=== PATIENT | female | born 1955 | race Caucasian/White ===

== ENCOUNTER 2020-10-10 12:16 | Outpatient (RCR) | payer MEDICARE, OTHER, SELFPAY ==
[2020-10-10] MEDS: COVID-19 VACC, MRNA(PFIZER)/PF 30 MCG/0.3 ML SYRINGE IM (18:32)
[2020-10-31] MEDS: COVID-19 VACC, MRNA(PFIZER)/PF 30 MCG/0.3 ML SYRINGE IM (17:47)
== END 2020-10-10 23:59 ==
LOC: IMMUN 12:16
PROVIDERS: PCP Family Medicine; Visit Provider Family Medicine
DX: Z23 Encounter for immunization (principal)
CPT/HCPCS: 0001A; 0002A; 91300

== ENCOUNTER 2025-03-30 20:12 | Emergency (ER) | payer MEDICARE, OTHER, SELFPAY ==
[2025-03-30 20:13] VITALS: BP 151/67; PULSE 67; RESP 18; TEMP 36.9; O2SAT 95; BMI 28.5
[2025-03-30 20:14] VITALS: BP 151/67; PULSE 67; RESP 18; TEMP 36.9; O2SAT 95
--- NOTE | 2025-03-30 21:07 | EX.ED.DYSGE1 ---
HPI <DAVID Salcedo - Last Filed: 03/30/25 21:50> History of Present Illness Chief Complaint: Wound Check Narrative Narrative: Patient presenting today due to concerns for an abscess to the left medial upper thigh. She reports that her symptoms started on 03/23/2025 and she went to urgent care, they were able to express some purulent discharge out of the abscess but did not open it and placed her on Bactrim. She then returned on 03/25 because the area was not getting any better and they added Keflex and referred her to Dr. Joyce who she followed up with on 03/26. He recommended applying warm compresses to the area and compression. Patient reports that the area is still not improving. She denies any fevers, chills, nausea, or vomiting. No history of diabetes or immunocompromise. PFSH <DAVID Salcedo - Last Filed: 03/30/25 21:50> [facility] Medical History Anxiety High cholesterol HTN (hypertension) Home Medications ?Medication ?Instructions ?Recorded ?Last Taken ?Type cephalexin 500 mg capsule 500 mg PO Q6 #20 CAPSULES 03/30/25 Unknown Rx sulfamethoxazole 800 1 tab PO BID 5 days #10 tabs 03/30/25 Unknown Rx mg-trimethoprim 160 mg tablet (Bactrim DS) Allergy/AdvReac Type Severity Reaction Status Date / Time clindamycin (From Cleocin) Allergy Other Verified 03/30/25 20:13 Tetracyclines Allergy Other Verified 03/30/25 20:13 Family History no significant family his Surgical History H/O section Social History Smoking Status: Never smoker ROS <DAVID Salcedo - Last Filed: 03/30/25 21:50> ROS ED Constitutional Constitutional ED: Denies chills or fever(s) Cardiovascular Cardiovascular: Denies chest pain Respiratory/Chest Respiratory/Chest: Denies dyspnea Gastrointestinal Gastrointestinal: Denies abdominal pain, nausea or vomiting Musculoskeletal Musculoskeletal: Denies arthralgias or myalgias Integumentary Reports abscess Neurologic Neurologic: Denies weakness EXAM <DAVID Salcedo - Last Filed: 03/30/25 21:50> Physical Exam Const Vital Signs: 03/30/25 20:13 03/30/25 20:14 03/30/25 21:52 Temperature 98.4 F 98.4 F 98.4 F Temperature Source Oral Oral Pulse Rate 67 67 66 Respiratory Rate 18 18 16 Blood Pressure 151/67 H 151/67 H 151/67 H Blood Pressure Mean 95 95 95 Pulse Ox 95 95 96 Oxygen Delivery Method Room Air Room Air Positive well nourished, well developed and no apparent distress General Appearance ED: well developed HEENT Reports normocephalic and head/scalp atraumatic Mouth ED: Yes moist mucous membranes normal Eyes PERRL and EOMs intact bilaterally Neck full ROM and supple Chest Wall inspection of chest normal Resp normal respiratory effort and clear to auscultation bilaterally Cardio regular rate and regular rhythm GI soft to palpation, non-tender, non-distended and no masses Back/Spine normal ROM and normal to inspection Extremity normal to inspection and full ROM Neuro oriented x3, CN's II-XII intact bilaterally, moves all extremities, no focal motor deficits and no sensory deficits noted Sensorium / Orientation: awake and alert Psych mental status grossly normal and thought process normal Skin no rashes or lesions noted and no wounds Skin Narrative: Fluctuant erythematous quarter size abscess to the left medial proximal thigh with minimal surrounding erythema and induration. No lymphangitic streaking. <Dr. Maury Ricketts DO - Last Filed: 03/31/25 01:20> Physical Exam Const Vital Signs: 03/30/25 20:13 03/30/25 20:14 03/30/25 21:52 Temperature 98.4 F 98.4 F 98.4 F Temperature Source Oral Oral Pulse Rate 67 67 66 Respiratory Rate 18 18 16 Blood Pressure 151/67 H 151/67 H 151/67 H Blood Pressure Mean 95 95 95 Pulse Ox 95 95 96 Oxygen Delivery Method Room Air Room Air MDM <DAVID Salcedo - Last Filed: 03/30/25 21:50> [facility] MDM Narrative Medical decision making narrative: Patient presenting today with an abscess to her left medial proximal thigh that started 03/23. She did go to urgent care, they were able to express some purulent discharge from the area but did not open it, her daughter was then able to express further discharge at home. She was placed on Bactrim. She returned 2 days later because the area was not getting better and was started on Keflex. She never had a formal I&D. She was referred to Dr. Joyce who recommended warm compresses to the area. I do feel that the area would benefit from I&D. She was agreeable with this and consented to the procedure. I was able to expel purulent discharge from the area, she tolerated procedure well. I will place her on 5 more days of antibiotics. Recommended she follow-up with her PCP and she will be discharged home in stable condition. Wound care instructions were discussed with her. <Dr. Maury Ricketts DO - Last Filed: 03/31/25 01:20> MDM Treatment and Re-Evaluation :: Attending note: I have personally performed a face to face assessment of the patient and have reviewed the MIKEL note. I personally made/approved the management plan and take responsibility for the patient management. I performed a substantive portion of the visit including all aspects of the following. My turk findings include: Increasing pain swelling left inner thigh. Symptoms started approximately 8 to 10 days ago seen in urgent care started on Keflex. Family states with the urgent care twice. Referred over to Dr. Joyce general surgery who started on Bactrim. 1 day left. Chills no fevers no diabetes history no history of similar. Examination after incision and drainage by digital forensics examiner, there is straight incision small clot in the incision. Slight swelling there is mild surrounding erythema and left upper thigh. No streaking. Discussed wound care patient and family. 1 day left of antibiotics. Will extend it for additional 5 days. Return precautions. Outpatient follow-up. All questions were answered. Procedures <DAVID Salcedo - Last Filed: 03/30/25 21:50> Other Procedures Procedure(s): I&D: Abscess cleansed with iodine swabs, anesthetized with 1% lidocaine with epinephrine, small incision was made with a #11 blade, purulent discharge was expelled from the wound, curved hemostats were used to break loculations, wound was copiously irrigated with saline and bandaged. Discharge Plan Triage Chief Complaint: Wound Check ED Midlevel Provider: Tiffanie Smith ED Provider: Maury Ricketts Dx/Rx/DC Orders Clinical Impression: Abscess Instructions: Abscess Drainage Prescriptions: New sulfamethoxazole-trimethoprim [Bactrim DS] 800-160 mg tablet 1 tab PO BID 5 Days Qty: 10 0RF cephalexin 500 mg capsule 500 mg PO Q6 Qty: 20 0RF Primary Care Provider: John Higginbotham Referrals: John Higginbotham MD [Primary Care Provider] - 5-7 Days Activity Restrictions/Additional Instructions: Follow-up with your PCP and return for any other concerns or worsening symptoms. You can continue to apply warm compresses to the area. Print Language: Dominican Disposition Disposition: Home, Self Care Discharge Date/Time: 03/30/25 22:03
--- OUTSIDE RECORDS SUMMARY | 2025-03-30 21:08 | XMS RPT_ITS | CCD ---
Author Organization [facility] Care Team Providers Care Local Operator Name Role Phone Juno Higginbotham MD Primary Care Provider Juno Higginbotham MD Primary Care Provider Podlogar EXECUTIVE CYBER LEADER.Kendra HERNANDES Unavailable Knoble EXECUTIVE CYBER LEADER.Nai HERNANDES Unavailable NAI MENDOZA Referring Unavailable JUNO HIGGINBOTHAM Primary Care Unavailab le Knoble EXECUTIVE CYBER LEADER.Nai HERNANDES Unavailable JUNO HIGGINBOTHAM Referring Unavailab JUNO Ontiveros Primary Care Unavailab NAI Meyer Attending Unavailable JUNO HIGGINBOTHAM Primary Care Unavailab le PODLOGKENDRA SALAMANCA Attending Unavailable JUNO HIGGINBOTHAM Primary Care Unavailab NAI Meyer Attending Unavailable JUNO HIGGINBOTHAM Primary Care Unavailab NAI Meyer Referring Unavailable JUNO HIGGINBOTHAM Primary Care Unavailab NAI Meyer Attending Unavailable JUNO HIGGINBOTHAM Primary Care Unavailab JUNO Ontiveros Primary Care Unavailab OG Conrad Attending Unavailable JUNO HIGGINBOTHAM Primary Care Unavailab RICHARD Monsalve Attending Unavailable RON MCFARLANE Attending Unavailable JUNO HIGGINBOTHAM Primary Care Unavailab JUNO Ontiveros Attending Unavailab JUNO Ontiveros Primary Care Unavailab le PODLOGKENDRA SALAMANCA Attending Unavailable JUNO HIGGINBOTHAM Primary Care Unavailab le PODLOGARKENDRA Referring Unavailable JUNO HIGGINBOTHAM Primary Care Unavailab le Unavailable Unavailable Unavailable Allergies Allergy Classification Reported Allergen(s) Allergy Type Date of Onset Reaction(s) Facility (1 source) Clindamycin Drug Allergy 1 Other [facility] Work Phone: (1 source) Tetracyclines Allergy to substance Other [facility] Work Phone: (20 sources) Clindamycin; Translations: [CLINDAMYCIN HCL] Drug Allergy 6 [facility] Work Phone: (20 sources) Tetracycline; Translations: [TETRACYCLINE] Drug Allergy 6 [facility] Work Phone: Medications Current Medications Medication Drug Class(es) Dates Sig (Normalized) Sig (Original) calcium carbonate 1500 mg / cholecalciferol 0.01 mg oral tablet (20 sources) Vitamin D Start: 11-03-2020 take 1 tablet by mouth twice daily calcium carbonate 600 mg-cholecalciferol 400 units (CALCIUM 600 + D) 600 mg(1,500mg) -400 unit tab Take 1 tablet by mouth twice daily. 11/03/2020 Active Comment on above: Take 1 tablet by [facility] twice daily. cephalexin 500 mg oral capsule (1 source) Cephalosporin Antibacterial Start: 03-26-2025 End: 03-31-2025 take 1 capsule by mouth three times daily cephALEXin (KEFLEX) 500 mg capsule Take 1 capsule by mouth three times a day for 5 days. 15 capsule 03/26/2025 03/31/2025 Active hydrocortisone 10 mg/ml / neomycin 3.5 mg/ml / polymyxin b [id number] unt/ml otic suspension (1 source) Aminoglycoside Antibacterial, Polymyxin-class Antibacterial, Corticosteroid Start: 01-11-2025 End: 01-16-2025 neomycin-polymyxin- hydrocortisone (CORTISPORIN) 3.5-10,000-1 mg/mL-unit/mL-% otic suspension Indications: Acute otitis externa of both ears, unspecified type Use 4 drops in both ears three times a day for 5 days. 10 mL 01/11/2025 01/16/2025 Active lisinopril 10 mg oral tablet (18 sources) Angiotensin Converting Enzyme Inhibitor Start: 11-10-2024 End: 01-09-2025 take 1 tablet by mouth once daily lisinopril (ZESTRIL) 10 mg tablet Indications: Hypertension, essential Take 1 tablet by mouth once daily. 90 tablet 1 01/09/2025 Active LORazepam 1 mg oral tablet (1 source) Benzodiazepine Start: 12-07-2024 End: 12-07-2024 take 1 tablet by mouth once, then take 1 tablet by mouth every hour LORazepam (ATIVAN) 1 mg tablet Indications: Claustrophobia Take 1 tablet by mouth one time only for 1 dose. Take 1 hour prior to MRI. 1 tablet 12/07/2024 12/07/2024 Active multivitamins(MULTIP LE VITAMIN TAB) (20 sources) Start: 10-04-2008 multivitamins(MULTI PLE VITAMIN TAB) Indications: Other and unspecified hyperlipidemia Take one(1) tablet daily. 0 10/04/2008 Active Comment on above: Take one(1) tablet d aily. mupirocin 0.02 mg/mg topical ointment (1 source) RNA Synthetase Inhibitor Antibacterial Start: 03-26-2025 End: 03-31-2025 mupirocin (BACTROBAN) 2 % ointment Apply to affected area three times a day for 5 days. 30 g 03/26/2025 03/31/2025 Active QUEtiapine 25 mg oral tablet (16 sources) Atypical Antipsychotic Start: 02-20-2025 QUEtiapine (SEROQUEL) 25 mg tablet Indications: Chronic insomnia Take 1/2 tablet daily 45 tablet 1 02/20/2025 Active Start: 12-07-2024 End: 02-19-2025 take 1 tablet by mouth once daily at bedtime QUEtiapine (SEROQUEL) 25 mg tablet Indications: Chronic insomnia Take 1 tablet by mouth daily at bedtime. 30 tablet 12/26/2024 02/19/2025 Discontinued sertraline 50 mg oral tablet (10 sources) Serotonin Reuptake Inhibitor Start: 12-12-2024 End: 02-05-2025 take 1 tablet by mouth once daily sertraline (ZOLOFT) 50 mg tablet Indications: Anxiety TAKE 1 TABLET BY MOUTH EVERY DAY 90 tablet 1 02/05/2025 Active simvastatin 40 mg oral tablet (20 sources) HMG-CoA Reductase Inhibitor Start: 01-09-2025 End: 01-09-2026 take 1 tablet by mouth once daily at bedtime simvastatin (ZOCOR) 40 mg tablet Indications: Hyperlipidemia, mixed Take 1 tablet by mouth daily at bedtime. 90 tablet 3 01/09/2025 01/09/2026 Active Start: 11-17-2022 End: 01-09-2025 take 1 tablet by mouth once daily at bedtime simvastatin (ZOCOR) 80 mg tablet Take 1 tablet by mouth daily at bedtime. 90 tablet 3 09/27/2023 01/09/2025 Discontinued Start: 01-12-2022 End: 11-17-2022 take 1 tablet by mouth once daily at bedtime simvastatin (ZOCOR) 40 mg tablet Take 1 tablet by mouth daily at bedtime. 90 tablet 1 01/12/2022 07/06/2022 Discontinued Start: 10-29-2020 End: 01-10-2022 take 1 tablet by mouth once daily at bedtime simvastatin (ZOCOR) 40 mg tablet Take 1 tablet by mouth daily at bedtime. 90 tablet 3 10/29/2020 01/10/2022 Discontinued Comment on above: Take 1 tablet by talha th daily at bedtime. sulfamethoxazole 800 mg / trimethoprim 160 mg oral tablet (2 sources) Dihydrofolate Reductase Inhibitor Antibacterial, Sulfonamide Antimicrobial Start: 03-23-20 End: 03-28-20 take 1 tablet by mouth twice daily sulfamethoxazole-t rimethoprim (BACTRIM DS) 800-160 mg per tablet Indications: Cellulitis and abscess of leg, except foot Take 1 tablet by mouth two times a day for 5 days. 10 tablet 03/23/2025 03/28/2025 Active vit C,N-Vr-lstsy-lutein-zeax an (PRESERVISION AREDS-2) 250-90-40-1 mg (20 sources) vit C,E-Zm-lyqmc-lutei n-zeaxan (PRESERVISION AREDS-2) 250-90-40-1 mg Take 1 capsule by mouth twice daily with meals. Active vit C,E-Zn-coppr -lutein-zeaxan (PRESERVISION AREDS-2) 250-90-40-1 mg Take 1 capsule by mouth twice daily with meals. 0 Active Comment on above: Take 1 capsule by mo uth twice daily with meals. Completed/Discontinued Medications Medication Drug Class(es) Dates Sig (Normalized) Sig (Original) traZODone hydrochloride 50 mg oral tablet (5 sources) Serotonin Reuptake Inhibitor Start: 11-06-2024 End: 12-07-2024 take 1 tablet by mouth once daily at bedtime traZODone (DESYREL) 50 mg tablet Indications: Chronic insomnia TAKE 1 TABLET BY MOUTH EVERYDAY AT BEDTIME 90 tablet 1 11/28/2024 12/07/2024 Discontinued Problems Active Problems Problem Classification Problem Date Documented Da te Episodic/Chronic Administrative/social admission (2 sources) Advance directive discussed with patient; Translations: [Other specified counseling] Onset: 01-09-2025 01-09-2025 Episodic Anxiety disorders (20 sources) Anxiety; Translations: [Anxiety disorder, unspecified] Onset: 12-06-2014 12-06-2014 Chronic Disorders of lipid metabolism (20 sources) Hyperlipidemia; Translations: [Hyperlipidemia, unspecified] Onset: 03-10-2017 03-10-2017 Chronic Essential hypertension (6 sources) Essential hypertension; Translations: [Essential (primary) hypertension] Onset: 11-10-2024 11-10-2024 Chronic Immunizations and screening for infectious disease (1 source) Encounter for immunization; Translations: [Encounter for immunization] Onset: 01-09-2025 Episodic Miscellaneous mental health disorders (5 sources) Chronic insomnia; Translations: [Psychophysiologic insomnia] Onset: 11-06-2024 11-06-2024 Chronic Osteoarthritis (20 sources) Arthritis of left knee; Translations: [Unilateral primary osteoarthritis, left knee] Onset: 12-06-2014 12-06-2014 Chronic Other bone disease and musculoskeletal deformities (2 sources) Senile osteopenia; Translations: [Other specified disorders of bone density and structure, unspecified site] Episodic Other circulatory disease (1 source) Elevated blood-pressure reading without diagnosis of hypertension; Translations: [Elevated blood-pressure reading, without diagnosis of hypertension] 11-06-2024 Episodic Other ear and sense organ disorders (1 source) Acute otitis externa of bilateral ears; Translations: [Unspecified acute noninfective otitis externa, bilateral] 01-11-2025 Episodic Other nutritional; endocrine; and metabolic disorders (20 sources) Obesity; Translations: [Other obesity due to excess calories] Onset: 11-12-2022 Chronic Other skin disorders (8 sources) Neck swelling; Translations: [Localized swelling, mass and lump, neck] 08-29-2024 Episodic Residual codes; unclassified (2 sources) Menopause present; Translations: [Asymptomatic menopausal state] Episodic Residual codes; unclassified (4 sources) Amnesia; Translations: [Other amnesia] 12-07-2024 Episodic Screening and history of mental health and substance abuse codes (1 source) Encounter for screening for depression; Translations: [Screening for depression] Onset: 01-09-2025 Episodic Skin and subcutaneous tissue infections (7 sources) Cellulitis and abscess of lower limb; Translations: [Cellulitis of unspecified part of limb] Onset: 03-23-2025 03-23-2025 Episodic Past or Other Problems Problem Classification Problem Date Documented Da te Episodic/Chronic Abdominal hernia (20 sources) Umbilical hernia; Translations: [Umbilical hernia without obstruction or gangrene] Onset: 07-17-2010 Resolved: 12-06-2014 12-06-2014 Episodic Fracture of lower limb (20 sources) Closed fracture of distal right fibula; Translations: [Other fracture of upper and lower end of right fibula, initial encounter for closed fracture] Onset: 06-07-2012 Resolved: 12-06-2014 12-06-2014 Episodic Lymphadenitis (5 sources) Localized enlarged lymph nodes; Translations: [Localized enlarged lymph nodes] Onset: 10-17-2024 10-12-2024 Episodic Other aftercare (1 source) Other adjunct faculty for medical terminology (current) drug therapy; Translations: [Medication management] Onset: 12-07-2024 Episodic Other circulatory disease (1 source) Elevated blood-pressure reading, without diagnosis of hypertension; Translations: [Elevated BP without diagnosis of hypertension] Onset: 11-06-2024 Episodic Other screening for suspected conditions (not mental disorders or infectious disease) (20 sources) Patient encounter status; Translations: [Encounter for screening for malignant neoplasm of colon] Onset: 03-26-2015 03-26-2015 Episodic Other skin disorders (1 source) Localized swelling, mass and lump, neck; Translations: [Neck swelling] Onset: 10-17-2024 Episodic Otitis media and related conditions (2 sources) Acute non-suppurative otitis media - serous; Translations: [Acute serous otitis media, right ear] Onset: 04-11-2024 04-11-2024 Episodic Residual codes; unclassified (20 sources) Family history of malignant neoplasm of breast in first degree relative; Translations: [Family history of malignant neoplasm of breast] Onset: 03-10-2017 03-10-2017 Episodic Residual codes; unclassified (20 sources) Family history of cardiac disorder; Translations: [Family history of ischemic heart disease and other diseases of the circulatory system] Onset: 03-10-2017 03-10-2017 Episodic Residual codes; unclassified (2 sources) Other amnesia; Translations: [Memory loss] Onset: 12-07-2024 Episodic Results Test Name Value Interpretation Reference Range Facil polina Vega 03-26-2025 CNOV Office Visit ([facility]) TYLER CASAS ([id number]) 1955 F Date Time Provider Department 03/26/25 12:45 PM RICHARD DUONG During your visit today, we recorded the following information about you: Temperature Pulse Respiration Blood pressure 99 degrees 70/minute 21/minute 130/64 Weight 75 kg Richard Duong APRN.BD SPECIAL EDUCATION TEACHER 03/26/2025 1:22 PM Signed [facility] Elizabeth Casas is a 69 year old female. Patient presents with: Rash: Possible cellulitis on ROSAURA legs x 3 days HPI Nontoxic-appearing 69-year-old female presents urgent care chief complaint cellulitis/abscess. Duration of symptoms 1 week. Associated symptoms pain some drainage from wound. Was seen here on 815. Placed on Bactrim. States has developed a new abscess on her other leg. Presents today for evaluation. States redness may have worsened slightly. Overall feels well. No fevers. No nausea vomiting. Past medical history prescription medications allergies reviewed Review of Systems Constitutional: Negative for chills, diaphoresis, fatigue and fever. HENT: Negative for congestion, drooling, ear discharge, ear pain, rhinorrhea, sinus pressure, sinus pain, sneezing, sore throat and trouble swallowing. Eyes: Negative for pain, discharge, redness, itching and visual disturbance. Respiratory: Negative for cough, chest tightness, shortness of breath and wheezing. Cardiovascular: Negative for chest pain. Gastrointestinal: Negative for abdominal distention, abdominal pain, blood in stool, constipation, diarrhea, nausea and vomiting. Genitourinary: Negative for difficulty urinating and dysuria. Musculoskeletal: Negative for arthralgias, joint swelling, neck pain and neck stiffness. Skin: Negative for rash. Neurological: Negative for dizziness, weakness, numbness and headaches. Objective BP 130/64 Pulse 70 Temp 37.2 ?C (99 ?F) Resp 21 Wt 75 kg (165 lb 5.5 oz) LMP 02/13/2005 SpO2 94% BMI 28.93 kg/m? Physical Exam Constitutional: Appearance: Normal appearance. She is normal weight. HENT: Head: Normocephalic. Eyes: Conjunctiva/sclera: Conjunctivae normal. Cardiovascular: Rate and Rhythm: Normal rate. Pulmonary: Effort: Pulmonary effort is normal. Musculoskeletal: Cervical back: Normal range of motion. Skin: Findings: No rash. Comments: Approximately a 3 cm x 3 cm area of induration with a small hole in the center noted. Some bloody discharge noted. Surrounding erythema noted. Erythematous approximately 5 cm x 5 cm. A small 5 mm x 5 mm area of induration noted left leg. No inguinal adenopathy no remote redness. Neurological: General: No focal deficit present. Mental Status: She is alert and oriented to person, place, and time. Mental status is at baseline. {ASSESSMENT/PLAN: 1. Cellulitis of skin - ICD9: 682.9, ICD10: L03.90 - CONSULT TO GENERAL SURGERY Wound culture sent. Addition of Keflex due to new area of cellulitis. Follow-up with GEN surge reevaluation. Patient was educated on supportive therapies. Patient will follow up with primary care provider as needed. Patient was instructed to immediately proceed to emergency room for any new, worsening, or symptoms lasting longer than anticipated. The patient's clinical presentation is otherwise unremarkable at this time. Based on exam and clinical finding, the patient is stable for discharge. Plan of care was discussed with patient. Patient verbalizes understanding and agrees to plan of care. This note was generated using [employer] software. It may contain errors in wording, punctuation, or spelling. Richard Duong APRN.BD SPECIAL EDUCATION TEACHER MDM Procedures Allergies As of Date: 03/26/2025 Noted Allergy Reaction CLEOCIN (CLINDAMYCIN HCL) 08/19/2005 TETRACYCLINE 08/19/2005 Date Reviewed: 03/26/2025 Reviewed by: Richard Duong APRN.BD SPECIAL EDUCATION TEACHER - Fully Assessed Reason for Visit: Rash [1087] Cmt: Possible cellulitis on ROSAUAR legs x 3 days Primary Visit Diagnosis:Cellulitis of skin [L03.90] Order(s):mupirocin (BACTROBAN) 2 % ointmentApply to affected area three times a day for 5 days.Disp: 30 gRfl: 0 cephALEXin (KEFLEX) 500 mg capsuleTake 1 capsule by mouth three times a day for 5 days.Disp: 15 capsuleRfl: 0 CONSULT TO GENERAL SURGERY [9011] Order #: [id number]: 1 FUTURE BACTERIAL CULTURE AND GRAM STAIN, ABSCESS AND WOUND (AEROBIC CULTURE) [SQWCUL] Order #: [id number]. #:[id number] Prescriptions as of 03/26/2025 - mupirocin (BACTROBAN) 2 % ointment Apply to affected area three times a day for 5 days. - cephALEXin (KEFLEX) 500 mg capsule Take 1 capsule by mouth three times a day for 5 days. - sulfamethoxazole-trimet hoprim (BACTRIM DS) 800-160 mg per tablet Take 1 tablet by mouth two times a day for 5 days. - QUEtiapine (SEROQUEL) 25 mg tablet Take 1/2 tablet daily - sertraline (ZOLOFT) 50 mg tablet HERI (more content not included)... Normal [facility] CNOVon 03-23-2025 CNOV Office Visit ([facility]) TYLER CASAS ([id number]) 1955 F Date Time Provider Department 03/23/25 9:15 AM OG THURSTON During your visit today, we recorded the following information about you: Temperature Pulse Respiration Blood pressure 98.1 degrees 68/minute 18/minute 154/76 Weight 74.7 kg Og Thurston MD 03/23/2025 9:42 AM Signed [facility] [place] Casas is a 69 year old female. Patient presents with: Derm Problem: Cyst L upper thigh x3 days 69-year-old female noticed a bump on her left thigh her daughter squeezed and got some pus out she is here because there is little surrounding redness She denies fever chills nausea vomiting chest pain or shortness of breath Review of Systems Constitutional: Negative for fever. Respiratory: Negative for shortness of breath. Cardiovascular: Negative for chest pain. Gastrointestinal: Negative for abdominal pain. Skin: Positive for rash. Objective BP 154/76 Pulse 68 Temp 36.7 ?C (98.1 ?F) Resp 18 Wt 74.7 kg (164 lb 10.9 oz) LMP 02/13/2005 SpO2 97% BMI 28.82 kg/m? Physical Exam Skin: Comments: Left thigh upper skin a 2 cm area of swelling with some bloody purulent drainage this was squeezed and a fair amount of blood came out decreasing the size to almost nothing with a small amount of pus there was some surrounding erythema on the outer portion of it about 2 cm away from the wound {ASSESSMENT/PLAN: 1. Cellulitis and abscess of leg, except foot - ICD9: 682.6, ICD10: L03.119, L02.419 - Begin treatment with Trimethoprim-sulfametho zazole (Bactrim) 2 DS PO BID - Patient's abscess is already draining upon squeezing it there was small amount of hematoma with some purulent material decompressed the abscess put a Band-Aid over it I would recommend that she take Bactrim for 1 week follow-up with the PCP - SULFAMETHOXAZOLE 800 MG-TRIMETHOPRIM 160 MG TABLET Og Thurston MD Differential Diagnoses - left thigh abscess is more likely for the following reason(s): suggested by HANDP - cellulitis is more likely for the following reason(s): suggested by HANDP Procedures Og Thurston MD 03/23/2025 9:49 AM Signed Cellulitis You were diagnosed with cellulitis. This is a bacterial infection of the skin. Symptoms are usually redness, swelling, and warmth in the affected area. Some people get a fever (temperature higher than 100.4?F / 38?C) with this infection. Keep the extremity (arm or leg) above your heart level if possible. Cellulitis is treated with antibiotics. It is also treated by keeping the affected area elevated (up). Sometimes, antibiotics are given intravenously (IV). Other infections can be treated with oral (by mouth) medicines. Redness, swelling, warmth, and fever should start to get better after 2-3 days of treatment. Come back here or go to the nearest Emergency Department or your primary doctor for a re-check as directed. YOU SHOULD SEEK MEDICAL ATTENTION IMMEDIATELY, EITHER HERE OR AT THE NEAREST EMERGENCY DEPARTMENT, IF ANY OF THE FOLLOWING OCCURS: Redness spreads even with treatment. You can daniel the infection area with a pen. This will help watch for improvement or spreading. Fever (temperature higher than 100.4?F / 38?C) doesn't go away or gets worse after 2-3 days of antibiotics. Unusual or increasing pain in the infected area. Lightheadedness. Feeling sicker at any time or not getting better as expected. Allergies As of Date: 03/23/2025 Noted Allergy Reaction CLEOCIN (CLINDAMYCIN HCL) 08/19/2005 TETRACYCLINE 08/19/2005 Date Reviewed: 03/23/2025 Reviewed by: Stefania Vogel MA - Fully Assessed Reason for Visit: Derm Problem [33] Cmt: Cyst L upper thigh x3 days Primary Visit Diagnosis:Cellulitis and abscess of leg, except foot [L03.119, L02.419] Order(s):sulfamethoxazo le-trimethoprim (BACTRIM DS) 800-160 mg per tabletTake 1 tablet by mouth two times a day for 5 days.Disp: 10 tabletRfl: 0 Prescriptions as of 03/23/2025 - sulfamethoxazole-trimet hoprim (BACTRIM DS) 800-160 mg per tablet Take 1 tablet by mouth two times a day for 5 days. - QUEtiapine (SEROQUEL) 25 mg tablet Take 1/2 tablet daily - sertraline (ZOLOFT) 50 mg tablet TAKE 1 TABLET BY MOUTH EVERY DAY - simvastatin (ZOCOR) 40 mg tablet Take 1 tablet by mouth daily at bedtime. - lisinopril (ZESTRIL) 10 mg tablet Take 1 tablet by mouth once daily. - vit C,M-Id-plcxo-lutein-yfn los (PRESERVISION AREDS-2) 250-90-40-1 mg Take 1 capsule by mouth twice daily with meals. - calcium carbonate 600 mg-cholecalciferol 400 units (CALCIUM 600 + D) 600 mg(1,500mg) -400 unit tab Take 1 tablet by mouth twice daily. - multivitamins(MULTIPLE VITAMIN TAB) Take one(1) tablet daily. Problem List As Of Date 03/23/2025 Noted Resolved Umbilical hernia without mention of obstruction*07/17/2010 04/ (more content not included)... [facility] ([id number]) 1955 F Date Time Provider Department 01/11/25 NAI MENDOZA [facility] During your visit today, we recorded the following information about you: Cherri Holt LPN 01/11/2025 1:31 PM Signed Patient calling she was in the office on 01/09/2025 for an appt, her right ear was red then. Patient said now her right ear hurts, no drainage, no fever, no other symptoms. Patient asking for an antibiotic rx to be sent to [facility] pharmacy please. Please advise Allergies As of Date: 01/11/2025 Noted Allergy Reaction CLEOCIN (CLINDAMYCIN HCL) 08/19/2005 TETRACYCLINE 08/19/2005 Date Reviewed: 01/09/2025 Reviewed by: Suri Dumont MA - Fully Assessed Reason for Visit: Medication Request [138] Primary Visit Diagnosis:Acute otitis externa of both ears, unspecified type [H60.503] Order(s):neomycin-polym yxin-hydrocortisone (CORTISPORIN) 3.5-10,000-1 mg/mL-unit/mL-% otic suspensionUse 4 drops in both ears three times a day for 5 days.Disp: 10 mLRfl: 0 Prescriptions as of 01/11/2025 - uauvsqsx-xpamjmpqi-vgqo ocortisone (CORTISPORIN) 3.5-10,000-1 mg/mL-unit/mL-% otic suspension Use 4 drops in both ears three times a day for 5 days. - simvastatin (ZOCOR) 40 mg tablet Take 1 tablet by mouth daily at bedtime. - lisinopril (ZESTRIL) 10 mg tablet Take 1 tablet by mouth once daily. - QUEtiapine (SEROQUEL) 25 mg tablet Take 1 tablet by mouth daily at bedtime. - sertraline (ZOLOFT) 50 mg tablet Take 1 tablet by mouth once daily. - vit C,P-Jj-qnexm-lutein-yfn los (PRESERVISION AREDS-2) 250-90-40-1 mg Take 1 capsule by mouth twice daily with meals. - calcium carbonate 600 mg-cholecalciferol 400 units (CALCIUM 600 + D) 600 mg(1,500mg) -400 unit tab Take 1 tablet by mouth twice daily. - multivitamins(MULTIPLE VITAMIN TAB) Take one(1) tablet daily. Problem List As Of Date 01/11/2025 Noted Resolved Umbilical hernia without mention of obstruction*07/17/2010 12/06/2014 Fracture of fibula, distal, right, closed [S82.*06/07/2012 12/06/2014 Arthritis of knee, left [M17.12] 12/06/2014 Anxiety [F41.9] 12/06/2014 Special screening for malignant neoplasms, colo*03/26/2015 Hyperlipidemia LDL goal <100 [E78.5] 03/10/2017 Family history of breast cancer in sister [Z80.*03/10/2017 Family history of heart disease [Z82.49] 03/10/2017 Obesity [E66.9] 11/12/2022 Prescriptions ordered this encounter Disp Refills Start End DOBZGTHH-PSHPUFFYE-MKFL OCORT 3.5 MG-* 10 mL 0 01/11/2025 01/16/2025 Route: AU Sig: Use 4 drops in both ears three times a day for 5 days. Encounter Status:Closed by NAI MENDOZA on 01/11/25 [facility] CNOVon 01-09-2025 CNOV Office Visit (FAMPWS ) TYLER CASAS ([id number]) 1955 F Date Time Provider Department 01/09/25 9:00 AM [facility] your visit today, we recorded the following information about you: Pulse Blood pressure Weight 58/minute 138/75 72 kg Nai Mendoza APRN.CNP 01/09/2025 10:10 AM Signed Tyler Casas is a 69 year old female here for a Medicare wellness visit. Medicare Health Risk Assessment General Health Very good Exercise: Minutes/Day 30 min Exercise: Days/Week 3 days Alcohol: Daily Use Never Alcohol: Drinks/Day Patient does not drink Alcohol: 6 or more drinks Never Feel off balance No Concerns: Teeth/Dentures No Concerns: Sexual function No Troubled by feelings Anxious Frequency: Eating healthy diet Nearly every day ADLs requiring help None of the above Safety precautions in home/vehicle Yes Smoke, vape, chews tobacco No Difficulty hearing No Difficulty seeing No Current Providers Specialists: I have reviewed specialist-related care of the patient in the medical record. Current care team: Patient Care Team: Juno Higginbotham MD as PCP - General (Family Medicine) Podlogar, MAGALY Gardner as Systems Applications Programming Lead (Family Medicine) Medical/Family history review Reviewed and updated problem list, medical/surgical/family /social history, medications, and allergies. Opioid use review Opioid Medications (last 90 days) No data to display Anxiety/Depression screening KRISTIE-7 Score: 0 . Recommendation: no further intervention at this time Cognitive screening Cognitive screening reviewed and No further action needed (score 3-5). Functional Observation Was the patient's Timed Up AND Go test unsteady or >= 12 seconds? No Advance Care Planning Surrogate decision maker and/or advance care plan documented Measurements BP 138/75 Pulse (!) 58 Wt 72 kg (158 lb 11.7 oz) LMP 02/13/2005 BMI 27.78 kg/m? Vision Screening: Follows with optometry/ophthalmology Assessment/Plan Medicare annual wellness visit, subsequent (Z00.00) - Counseled on healthy diet and regular exercise - Fall avoidance information provided - Personalized prevention plan provided Chief Complaint Patient presents with: Medicare Wellness Exam HPI Tyler Casas is a 69 year old female who presents here today for Medicare Annual Visit. Denies any complaints at this time. Would like longer refill of Lisinopril. Denies ay CP, SOB, edema, palpitations. Cholesterol well controlled-has only been taking 40mg of Simvastatin. Anxiety- well controlled. Seroquel has helped with sleep and anxiety. Has been waking up groggy though. Has been sleeping 8-10 hours without waking up. Diet well controlled. Denies any caffeine intake. Past medical history, appointments, medications, allergies reviewed. Previous Medical History PAST MEDICAL HISTORY Diagnosis Date Essential hypertension 11/10/2024 Obesity Other and unspecified hyperlipidemia Snoring Previous Surgical History PAST SURGICAL HISTORY Procedure Laterality Date DELIVERY ONLY , low cervical COLONOSCOPY FLX DX W/COLLJ SPEC WHEN PFRMD 04/10/05 Colonoscopy COLONOSCOPY FLX DX W/COLLJ SPEC WHEN PFRMD 05-07-15 TONSILLECTOMY AND ADENOIDECTOMY T/A (under age 12 years) Family History FAMILY HISTORY Problem Relation Age of Onset Hypertension Mother Coronary Artery Disease Mother Stroke Mother Alzheimer's Disease Father Coronary Artery Disease Father Hypertension Father Stroke Father Diabetes Sister Hypertension Sister Breast Cancer Sister 59 Colon Cancer Maternal Grandfather Patient Allergies ALLERGIES Allergen Reactions Cleocin [Clindamyci* Tetracycline Current Medications Current Outpatient Medications on File Prior to Visit Medication Sig QUEtiapine (SEROQUEL) 25 mg tablet Take 1 tablet by mouth daily at bedtime. sertraline (ZOLOFT) 50 mg tablet Take 1 tablet by mouth once daily. lisinopril (ZESTRIL) 10 mg tablet Take 1 tablet by mouth once daily. simvastatin (ZOCOR) 80 mg tablet Take 1 tablet by mouth daily at bedtime. vit C,G-Ow-ykfgj-lutein-yfn los (PRESERVISION AREDS-2) 250-90-40-1 mg Take 1 capsule by mouth twice daily with meals. calcium carbonate 600 mg-cholecalciferol 400 units (CALCIUM 600 + D) 600 mg(1,500mg) -400 unit tab Take 1 tablet by mouth twice daily. multivitamins(MULTIPLE VITAMIN TAB) Take one(1) tablet daily. No current facility-administered medications on file prior to visit. Social History Social History Tobacco Use Smoking status: Never Smokeless tobacco: Never Vaping Use Vaping status: Never Used Substance Use Topics Alcohol use: No Drug use: No Review of Symptoms REVIEW OF SYSTEMS GENERAL: No weight loss, malaise or fevers HEENT: Negative for frequent or significant headaches, No changes in hearing or vision, no nose ble (more content not included)... Normal [facility] MR Brain WO contraston 12-09 IMPRESSION: No acute intracranial process. No intracranial mass on this noncontrast exam. Chronic changes as described. Grout Machine Tender: [place] Transcribe Date/Time: Dec 09 2024 12:23P Dictated by : LILLIAN LUNDBERG MD This examination was interpreted and the report reviewed and electronically signed by: LILLIAN LUNDBERG MD on Dec 09 2024 12:24PM [facility] * * *Final Report* * * DATE OF EXAM: Dec 09 2024 11:17AM [facility] 0294 - MRI BRAIN WO IVCON / PROCEDURE REASON: Memory loss * * * * Physician Interpretation * * * * EXAMINATION: MRI BRAIN WO IVCON CLINICAL HISTORY: Memory loss TECHNIQUE: Routine noncontrast MRI protocol including diffusion images. MQ: MRBWO_2 COMPARISON: None. RESULT: Acute Change: There is no evidence of restricted diffusion to suggest an acute infarct. Hemorrhage: No evidence of prior parenchymal hemorrhage on the susceptibility weighted images. Mass Lesion/ Mass Effect: No evidence of an intracranial mass or extra-axial fluid collection. No significant mass effect. Chronic Change: Scattered punctate foci of increased T2 and FLAIR signal are noted in the supratentorial white matter which is a nonspecific finding, but likely represents minimal chronic microvascular ischemia. Parenchyma: There is mild generalized parenchymal volume loss. The brain parenchyma is otherwise within normal limits of signal intensity and morphology. Ventricles: Ventriculomegaly corresponds to the degree of parenchymal volume loss. Skull Base: Hypothalamic and pituitary region are grossly normal. Craniocervical junction is normal. No significant marrow replacement process. Vasculature: Major intracranial arterial structures, and dural venous sinuses show typical flow void, suggesting patency by spin echo criteria. Other: The visualized paranasal sinuses and mastoid air cells are clear. The orbits and extracranial soft tissues are unremarkable. [facility] Provider, Carolyn Huang - 12/09/2024 * * *Final Report* * * DATE OF EXAM: Dec 09 2024 11:17AM [facility] 0294 - MRI BRAIN WO IVCON / PROCEDURE REASON: Memory loss * * * * Physician Interpretation * * * * EXAMINATION: MRI BRAIN WO IVCON CLINICAL HISTORY: Memory loss TECHNIQUE: Routine noncontrast MRI protocol including diffusion images. MQ: MRBWO_2 COMPARISON: None. RESULT: Acute Change: There is no evidence of restricted diffusion to suggest an acute infarct. Hemorrhage: No evidence of prior parenchymal hemorrhage on the susceptibility weighted images. Mass Lesion/ Mass Effect: No evidence of an intracranial mass or extra-axial fluid collection. No significant mass effect. Chronic Change: Scattered punctate foci of increased T2 and FLAIR signal are noted in the supratentorial white matter which is a nonspecific finding, but likely represents minimal chronic microvascular ischemia. Parenchyma: There is mild generalized parenchymal volume loss. The brain parenchyma is otherwise within normal limits of signal intensity and morphology. Ventricles: Ventriculomegaly corresponds to the degree of parenchymal volume loss. Skull Base: Hypothalamic and pituitary region are grossly normal. Craniocervical junction is normal. No significant marrow replacement process. Vasculature: Major intracranial arterial structures, and dural venous sinuses show typical flow void, suggesting patency by spin echo criteria. Other: The visualized paranasal sinuses and mastoid air cells are clear. The orbits and extracranial soft tissues are unremarkable. IMPRESSION IMPRESSION: No acute intracranial process. No intracranial mass on this noncontrast exam. Chronic changes as described. Grout Machine Tender: PSCB Transcribe Date/Time: Dec 09 2024 12:23P Dictated by : LILLIAN LUNDBERG MD This examination was interpreted and the report reviewed and electronically signed by: LILLIAN LUNDBERG MD on Dec 09 2024 12:24PM EST [facility] Radiology Study observation (narrative) [facility] MR Brain WO contrastOrdered By: [facility] Provider on 12-09-2024 [facility] MRI BRAIN WO IVCONon 025 MRI BRAIN WO IVCON * * *Final Report* * * DATE OF EXAM: Dec 09 2024 11:17AM [facility] 0294 - MRI BRAIN WO IVCON / PROCEDURE REASON: Memory loss * * * * Physician Interpretation * * * * EXAMINATION: MRI BRAIN WO IVCON CLINICAL HISTORY: Memory loss TECHNIQUE: Routine noncontrast MRI protocol including diffusion images. MQ: MRBWO_2 COMPARISON: None. RESULT: Acute Change: There is no evidence of restricted diffusion to suggest an acute infarct. Hemorrhage: No evidence of prior parenchymal hemorrhage on the susceptibility weighted images. Mass Lesion/ Mass Effect: No evidence of an intracranial mass or extra-axial fluid collection. No significant mass effect. Chronic Change: Scattered punctate foci of increased T2 and FLAIR signal are noted in the supratentorial white matter which is a nonspecific finding, but likely represents minimal chronic microvascular ischemia. Parenchyma: There is mild generalized parenchymal volume loss. The brain parenchyma is otherwise within normal limits of signal intensity and morphology. Ventricles: Ventriculomegaly corresponds to the degree of parenchymal volume loss. Skull Base: Hypothalamic and pituitary region are grossly normal. Craniocervical junction is normal. No significant marrow replacement process. Vasculature: Major intracranial arterial structures, and dural venous sinuses show typical flow void, suggesting patency by spin echo criteria. Other: The visualized paranasal sinuses and mastoid air cells are clear. The orbits and extracranial soft tissues are unremarkable. IMPRESSION: No acute intracranial process. No intracranial mass on this noncontrast exam. Chronic changes as described. Grout Machine Tender: [place] Transcribe Date/Time: Dec 09 2024 12:23P Dictated by : LILLIAN LUNDBERG MD This examination was interpreted and the report reviewed and electronically signed by: LILLIAN LUNDBERG MD on Dec 09 2024 12:24PM EST [id number] Normal [facility] CBC W Auto Differential pane l (Bld)on 12-08-2024 Basophils (Bld) [#/Vol] 0.03 10*3/uL Normal <0.11 [facility] Comment on above: Order Comment: Speci men Type: BLOOD SPECIMENOrdering Facility: [facility] Address: [address] [place] [address] Performed By: #### 5 7021-8 ####[facility] LABCLIA [id number] [address] [id number] [address] [place] Basophils/100 WBC (Bld) 0.6 % Normal [facility] Comment on above: Order Comment: Speci men Type: BLOOD SPECIMENOrdering Facility: [facility] Address: [address] [place] [address] Performed By: #### 5 7021-8 ####[facility] LABCLIA [id number] [place] [address] [place] Differential cell count method Nom (Bld) Auto Normal [facility] Comment on above: Order Comment: Speci men Type: BLOOD SPECIMENOrdering Facility: [facility] Address: [address] [place] [address] Performed By: #### 5 7021-8 ####[facility] LABCLIA [id number] [place] [address] [place] Eosinophils (Bld) [#/Vol] 0.07 10*3/uL Normal <0.46 [facility] Comment on above: Order Comment: Speci men Type: BLOOD SPECIMENOrdering Facility: [facility] Address: [address] [place] [address] Performed By: #### 5 7021-8 ####[facility] LABCLIA [id number] [place] [address] [place] Eosinophils/100 WBC (Bld) 1.5 % Normal [facility] Comment on above: Order Comment: Speci men Type: BLOOD SPECIMENOrdering Facility: [facility] Address: [address] [place] [address] Performed By: #### 5 7021-8 ####[facility] LABCLIA [id number] [place] [address] [place] Erythrocyte distribution width (RBC) [Ratio] 13.0 % Normal 11.5-15.0 [facility] Comment on above: Order Comment: Speci men Type: BLOOD SPECIMENOrdering Facility: [facility] Address: [address] [place] [address] Performed By: #### 5 7021-8 ####[facility] LABCLIA [id number] [place] [address] [place] Hematocrit (Bld) [Volume fraction] 42.3 % Normal 36.0-46.0 [facility] Comment on above: Order Comment: Speci men Type: BLOOD SPECIMENOrdering Facility: [facility] Address: [address] [place] [address] Performed By: #### 5 7021-8 ####[facility] LABCLIA [id number] [place] [address] [place] Hemoglobin (Bld) [Mass/Vol] 13.9 g/dL Normal 11.5-15.5 [facility] Comment on above: Order Comment: Speci men Type: BLOOD SPECIMENOrdering Facility: [facility] Address: [address] [place] [address] Performed By: #### 5 7021-8 ####[facility] LABIA [id number] [place] [address] [place] Immature granulocytes (Bld) [#/Vol] 10*3/uL Normal <0.10 [facility] Comment on above: Order Comment: Speci men Type: BLOOD SPECIMENOrdering Facility: [facility] Address: [address] [place] [address] Performed By: #### 5 7021-8 ####[facility] LABCLIA [id number] [place] [address] [place] Immature granulocytes/100 WBC (Bld) 0.2 % Normal [facility] Comment on above: Order Comment: Speci men Type: BLOOD SPECIMENOrdering Facility: [facility] Address: [address] [place] [address] Performed By: #### 5 7021-8 ####[facility] LABCLIA [id number] [place] [address] [place] Lymphocytes (Bld) [#/Vol] 1.74 10*3/uL Normal 1.00-4.00 [facility] Comment on above: Order Comment: Speci men Type: BLOOD SPECIMENOrdering Facility: [facility] Address: [address] [place] [address] Performed By: #### 5 7021-8 ####[facility] LABIA [id number] [place] [address] [place] Lymphocytes/100 WBC (Bld) 36.3 % Normal [facility] Comment on above: Order Comment: Speci men Type: BLOOD SPECIMENOrdering Facility: [facility] Address: [address] [place] [address] Performed By: #### 5 7021-8 ####[facility] LABIA [id number] [place] [address] [place] MCH (RBC) [Entitic mass] 32.5 pg Normal 26.0-34.0 [facility] Comment on above: Order Comment: Speci men Type: BLOOD SPECIMENOrdering Facility: [facility] Address: [address] [place] [address] Performed By: #### 5 7021-8 ####[facility] LABIA [id number] [address] [place] MCHC (RBC) [Mass/Vol] 32.9 g/dL Normal 30.5-36.0 [facility] Comment on above: Order Comment: Speci men Type: BLOOD SPECIMENOrdering Facility: [facility] Address: [address] [place] [address] Performed By: #### 5 7021-8 ####[facility] LABIA [id number] [place] [address] [place] MCV (RBC) [Entitic vol] 98.8 fL Normal 80.0-100.0 [facility] Comment on above: Order Comment: Speci men Type: BLOOD SPECIMENOrdering Facility: [facility] Address: [address] [place] [address] Performed By: #### 5 7021-8 ####[facility] LABCLIA [id number] [place] [address] [place] Monocytes (Bld) [#/Vol] 0.48 10*3/uL Normal <0.87 [facility] Comment on above: Order Comment: Speci men Type: BLOOD SPECIMENOrdering Facility: [facility] Address: [address] [place] [address] Performed By: #### 5 7021-8 ####[facility] LABCLIA [id number] [place] [address] [place] Monocytes/100 WBC (Bld) 10.0 % Normal [facility] Comment on above: Order Comment: Speci men Type: BLOOD SPECIMENOrdering Facility: [facility] Address: [address] [place] [address] Performed By: #### 5 7021-8 ####[facility] LABCLIA [id number] [place] [address] [place] Neutrophils (Bld) [#/Vol] 2.47 10*3/uL Normal 1.45-7.50 [facility] Comment on above: Order Comment: Speci men Type: BLOOD SPECIMENOrdering Facility: [facility] Address: [address] [place] [address] Performed By: #### 5 7021-8 ####[facility] LABCLIA [id number] [place] [address] [place] Neutrophils/100 WBC (Bld) 51.4 % Normal [facility] Comment on above: Order Comment: Speci men Type: BLOOD SPECIMENOrdering Facility: [facility] Address: [address] [place] [address] Performed By: #### 5 7021-8 ####[facility] LABCLIA [id number] [place] [address] [place] Nucleated RBC (Bld) [#/Vol] 10*3/uL Normal <0.01 [facility] Comment on above: Order Comment: Speci men Type: BLOOD SPECIMENOrdering Facility: [facility] Address: [address] [place] [address] Performed By: #### 5 7021-8 ####[facility] LABCLIA [id number] [place] [address] [place] Nucleated RBC/100 WBC (Bld) [Ratio] 0.0 /100 WBC Normal [facility] Comment on above: Order Comment: Speci men Type: BLOOD SPECIMENOrdering Facility: [facility] Address: [address] [place] [address] Performed By: #### 5 7021-8 ####[facility] LABCLIA [id number] [place] [address] [place] Platelet mean volume (Bld) [Entitic vol] 8.3 fL Low 9.0-12.7 [facility] Comment on above: Order Comment: Speci men Type: BLOOD SPECIMENOrdering Facility: [facility] Address: [address] [place] [address] Performed By: #### 5 7021-8 ####[facility] LABIA [id number] [place] [address] [place] Platelets (Bld) [#/Vol] 323 10*3/uL Normal 150-400 [facility] Comment on above: Order Comment: Speci men Type: BLOOD SPECIMENOrdering Facility: [facility] Address: [address] [place] [address] Performed By: #### 5 7021-8 ####[facility] LABCLIA [id number] [place] [address] [place] RBC (Bld) [#/Vol] 4.28 10*6/uL Normal 3.90-5.20 [facility] Comment on above: Order Comment: Speci men Type: BLOOD SPECIMENOrdering Facility: [facility] Address: [address] [place] [address] Performed By: #### 5 7021-8 ####[facility] LABIA [id number] [address] [address] [place] WBC (Bld) [#/Vol] 4.80 10*3/uL Normal 3.70-11.00 [facility] Comment on above: Order Comment: Speci men Type: BLOOD SPECIMENOrdering Facility: [facility] Address: [address] [place] [address] Performed By: #### 5 7021-8 ####[facility] LABIA [id number] [place] [address] [place] [facility] Comprehensive metabolic 2000 panelon 12-08-2024 Albumin [Mass/Vol] 4.4 g/dL Normal 3.9-4.9 [facility] Comment on above: Order Comment: Speci men Type: BLOOD SPECIMENOrdering Facility: [facility] Address: [address] [place] [address] Performed By: #### 2 4323-8, 9, 2284-03 ####[facility] LABIA [id number] [place] [address] [place] ALP [Catalytic activity/Vol] 77 U/L Normal 34-123 [facility] Comment on above: Order Comment: Speci men Type: BLOOD SPECIMENOrdering Facility: [facility] Address: [address] [place] [address] Performed By: #### 2 4323-8, 9, 2284-03 ####[facility] LABIA [id number] [address] [address] [place] ALT [Catalytic activity/Vol] 13 U/L Normal 7-38 [facility] Comment on above: Order Comment: Speci men Type: BLOOD SPECIMENOrdering Facility: [facility] Address: [address] [place] [address] Performed By: #### 2 4323-8, 2132-04, 2284-03 ####[facility] LABCLIA [id number] [address] [address] [place] Anion gap [Moles/Vol] 12 mmol/L Normal 8-15 [facility] Comment on above: Order Comment: Speci men Type: BLOOD SPECIMENOrdering Facility: [facility] Address: [address] [place] [address] Performed By: #### 2 432-8, 2132-04, 2284-03 ####[facility] LABIA [id number] [place] [id number] [place] AST [Catalytic activity/Vol] 17 U/L Normal 13-35 [facility] Comment on above: Order Comment: Speci men Type: BLOOD SPECIMENOrdering Facility: [facility] Address: [address] [place] [address] Performed By: #### 2 4322-8, 2132-04, 2284-03 ####[facility] LABIA [id number] [address] [address] [place] Bilirubin [Mass/Vol] 0.5 mg/dL Normal 0.2-1.3 [facility] Comment on above: Order Comment: Speci men Type: BLOOD SPECIMENOrdering Facility: [facility] Address: [address] [place] [address] Performed By: #### 2 432-8, 2132-04, 2284-03 ####[facility] LABIA [id number] [address] [address] [place] Calcium [Mass/Vol] 9.4 mg/dL Normal 8.5-10.2 [facility] Comment on above: Order Comment: Speci men Type: BLOOD SPECIMENOrdering Facility: [facility] Address: [address] [place], [place] [address] Performed By: #### 2 432-8, 2132-04, 2284-03 ####[facility] LABCLIA [id number] [address] [address] [place] Chloride [Moles/Vol] 100 mmol/L Normal 98-107 [facility] Comment on above: Order Comment: Speci men Type: BLOOD SPECIMENOrdering Facility: [facility] Address: [address] [place] [address] Performed By: #### 2 4323-8, 2132-04, 8 ####[facility] LABIA [id number] [address] [address] [place] CO2 [Moles/Vol] 26 mmol/L Normal 22-30 [facility] Comment on above: Order Comment: Speci men Type: BLOOD SPECIMENOrdering Facility: [facility] Address: [address] [place] [address] Performed By: #### 2 4323-8, 2132-04, 2284-03 ####[facility] LABIA [id number] [address] [address] [place] Creatinine [Mass/Vol] 0.57 mg/dL Low 0.58-0.96 [facility] Comment on above: Order Comment: Speci men Type: BLOOD SPECIMENOrdering Facility: [facility] Address: [address] [place] [address] Performed By: #### 2 4323-8, 2132-04, 2284-03 ####[facility] LABIA [id number] [place] [id number] [place] Creatinine and Glomerular filtration rate.predicted panel (S/P/Bld) 98 mL/min/1.73m??? Normal >=60 [facility] Comment on above: Order Comment: Speci men Type: BLOOD SPECIMENOrdering Facility: [facility] Address: [address] [place] [address] Result Comment: Fariba mated Glomerular Filtration Rate (eGFR) is calculated using the 2020 CKD-EPI creatinine equation. This equation utilizes serum creatinine, sex, and age as parameters. The creatinine assay has traceable calibration to isotope dilution-mass spectrometry. Refer to KDIGO guidelines for clinical interpretation. In patients with unstable renal function, e.g. those with acute kidney injury, the eGFR may not accurately reflect actual GFR. Performed By: #### 2 4322-8, 2132-04, 2284-03 ####[facility] LABCLIA [id number] [facility] [address] [address] [place] Glucose [Mass/Vol] 89 mg/dL Normal 74-99 [facility] Comment on above: Order Comment: Carolyne estes Type: BLOOD SPECIMENOrdering Facility: [facility] Address: [address] [place] [address] Result Comment: The [place] Diabetes Association (ADA) provides guidance for cutoff values for fasting glucose and random glucose. The ADA defines fasting as no caloric intake for at least 8 hours. Fasting plasma glucose results between 100 to 125 mg/dL indicate increased risk for diabetes (prediabetes). Fasting plasma glucose results greater than or equal to 126 mg/dL meet the criteria for diagnosis of diabetes. In the absence of unequivocal hyperglycemia, results should be confirmed by repeat testing. In a patient with classic symptoms of hyperglycemia or hyperglycemic crisis, random plasma glucose results greater than or equal to 200 mg/dL meet the criteria for diagnosis of diabetes. Reference: Standards of Medical Care in Diabetes 2016, [place] Diabetes Association. Diabetes Care. 2016.39(Suppl 1). Performed By: #### 2 8, 2132-04, 2284-03 ####[facility] LABCLIA [id number] [facility] [address] [address] [place] Potassium [Moles/Vol] 4.2 mmol/L Normal 3.7-5.1 [facility] Comment on above: Order Comment: Carolyne estes Type: BLOOD SPECIMENOrdering Facility: [facility] Address: [address] [place] [address] Performed By: #### 2 4328, 2132-04, 2284-03 ####[facility] LABCLIA [id number] [facility] [address] [address] [place] Protein [Mass/Vol] 6.7 g/dL Normal 6.3-8.0 [facility] Comment on above: Order Comment: Speci men Type: BLOOD SPECIMENOrdering Facility: [facility] Address: [address] [place], [place] [address] Performed By: #### 2 4323-8, 2132-04, 2284-03 ####[facility] LABCLIA [id number] [place] [id number] [place] Sodium [Moles/Vol] 138 mmol/L Normal 136-144 [facility] Comment on above: Order Comment: Speci men Type: BLOOD SPECIMENOrdering Facility: [facility] Address: [address] [place] [address] Performed By: #### 2 432-8, 2132-04, 2284-03 ####[facility] LABCLIA [id number] [place] [id number] [place] Urea nitrogen [Mass/Vol] 12 mg/dL Normal 7-21 [facility] Comment on above: Order Comment: Speci men Type: BLOOD SPECIMENOrdering Facility: [facility] Address: [address] [place] [address] Performed By: #### 2 4323-8, 2132-04, 2284-03 ####[facility] LABIA [id number] [place] [id number] [place] Folate SerPl-mCncon 12-09-19 25 Folate [Mass/Vol] 13.9 ng/mL Normal >4.7 [facility] Comment on above: Order Comment: Speci men Type: BLOOD SPECIMENOrdering Facility: [facility] Address: [address] [place], [place] [address] Performed By: #### 2 4323-8, 2132-04, 2284-03 ####[facility] LABCLIA [id number] [address] [address] [place] HbA1c (Bld)on 12-08-2024 Average glucose Estimated from glycated hemoglobin (Bld) [Mass/Vol] 97 mg/dL Normal [facility] Comment on above: Order Comment: Carolyne estes Type: BLOOD SPECIMENOrdering Facility: [facility] Address: [address] [place] [address] Result Comment: eAG: (Estimated average glucose) is a calculated value from HgbA1c and is outside medical sales representative of the average blood glucose level in the last 2-3 month period. Performed By: #### 5 5454-3 ####[facility] LABCLIA [id number] [place] [address] [place] HbA1c (Bld) [Mass fraction] 5.0 % Normal 4.3-5.6 [facility] Comment on above: Order Comment: Carolyne estes Type: BLOOD SPECIMENOrdering Facility: [facility] Address: [address] [place] [address] Result Comment: Amer [place] Diabetes Association guidelines indicate that patients with HgbA1c in the range 5.7-6.4% are at increased risk for development of diabetes, and intervention by lifestyle modification may be beneficial. HgbA1c greater or equal to 6.5% is considered diagnostic of diabetes. Performed By: #### 5 5454-3 ####[facility] LABCLIA [id number] [address] STATES OF [facility] Lipid 1996 panelon Cholesterol [Mass/Vol] 179 mg/dL Normal <200 [facility] Comment on above: Order Comment: Carolyne estes Type: BLOOD SPECIMENOrdering Facility: [facility] Address: [address] [place] [address] Result Comment: <200 mg/dL, Desirable 200-239 mg/dL, Borderline high >239 mg/dL, High Performed By: #### 3 053-6, 86504-7, 3016-3, 3024-7 ####[facility] LABCLIA [id number] [place] [id number] [place] Cholesterol in HDL [Mass/Vol] 74 mg/dL Normal >39 [facility] Comment on above: Order Comment: Aminatajosr estes Type: BLOOD SPECIMENOrdering Facility: [facility] Address: [address] [place] [address] Result Comment: 40-5 9 mg/dL, Acceptable >59 mg/dL, High: Negative risk factor for coronary heart disease <40 mg/dL, Low: Positive risk factor for coronary heart disease Performed By: #### 3 053-6, 00058-4, 3015-10, 7 ####[facility] LABIA [id number] [address] [address] [place] Cholesterol in LDL [Mass/Vol] 95 mg/dL Normal <100 [facility] Comment on above: Order Comment: Carolyne franklyn Type: BLOOD SPECIMENOrdering Facility: [facility] Address: [address] [place] [address] Result Comment: <100 mg/dL, Optimal 100-129 mg/dL, Near optimal/above optimal 130-159 mg/dL, Borderline high 160-189 mg/dL, High >189 mg/dL, Very high Secondary prevention optimal LDL Cholesterol levels are recommended to be <70 mg/dL LDL cholesterol is calculated using the Norton-NIH equation. Performed By: #### 3 053-6, 16290-8, 3015-10, 7 ####[facility] LABIA [id number] [place] [id number] [place] Cholesterol in LDL/Cholesterol in HDL [Mass ratio] 1.28 {ratio} Normal <2.54 [facility] Comment on above: Order Comment: Carolyne franklyn Type: BLOOD SPECIMENOrdering Facility: [facility] Address: [address] [place] [address] Result Comment: Ghada torres: 1. National Cholesterol Education Program ATP III Guideline At-A-Glance Quick Desk Reference: National Heart, Lung, and Blood [place]. National Institutes of Health. 2001: NIH Publication No. 01-3305. 2. An International Atherosclerosis Society position paper: global recommendations for the management of dyslipidemia: executive summary, Atherosclerosis. 2014: 232(2):410-413. Performed By: #### 3 053-6, 76759-3, 3016-3, 7 ####[facility] LABCLIA [id number] [address] [address] [place] Cholesterol in VLDL [Mass/Vol] 8 mg/dL Normal <30 [facility] Comment on above: Order Comment: Speci men Type: BLOOD SPECIMENOrdering Facility: [facility] Address: [address] [place] [address] Performed By: #### 3 053-6, 74607-2, 3015-3, 7 ####[facility] LABCLIA [id number] [address] [address] [place] Cholesterol non HDL [Mass/Vol] 105 mg/dL Normal <130 [facility] Comment on above: Order Comment: Speci men Type: BLOOD SPECIMENOrdering Facility: [facility] Address: [address] [place] [address] Result Comment: <130 mg/dL, Optimal 130-159 mg/dL, Near optimal/above optimal 160-189 mg/dL, Borderline high 190-219 mg/dL, High >219 mg/dL, Very high Secondary prevention optimal non HDL Cholesterol levels are recommended to be <100 mg/dL Performed By: #### 3 053-6, 43878-1, 3015-3, 7 ####[facility] LABCLIA [id number] [address] [address] [place] Cholesterol.total/C holesterol in HDL [Mass ratio] 2.42 {ratio} Normal <5.10 [facility] Comment on above: Order Comment: Speci men Type: BLOOD SPECIMENOrdering Facility: [facility] Address: [address] [place], [place] [address] Performed By: #### 3 053-6, 37309-2, 3015-3, 7 ####[facility] LABCLIA [id number] [address] [address] [place] FASTING TIME 12 hrs Normal [facility] Comment on above: Order Comment: Speci men Type: BLOOD SPECIMENOrdering Facility: [facility] Address: [address] [place] [address] Performed By: #### 3 053-6, 15177-3, 3016-3, 3024-7 ####[facility] LABCLIA [id number] [place] [address] [place] Triglyceride [Mass/Vol] 49 mg/dL Normal <150 [facility] Comment on above: Order Comment: Speci men Type: BLOOD SPECIMENOrdering Facility: [facility] Address: [address] [place] [address] Result Comment: <150 mg/dL, Normal 150-199 mg/dL, Borderline high 200-499 mg/dL, High >499 mg/dL, Very high Performed By: #### 3 053-6, 97367-4, 3016-3, 3024-7 ####[facility] LABIA [id number] [address] [address] [place] Reagin and Treponema pallidu m IgG and IgM [Interp]on 12-08-2024 T. pallidum IgG+IgM IA Ql (S) Non-Reactive Normal Nonreactive [facility] Comment on above: Order Comment: Speci men Type: BLOOD SPECIMENOrdering Facility: [facility] Address: [address] [place] [address] Performed By: #### 7 3752-8 ####[facility] LABIA [id number] [place] [id number] [place] Reagin+T pallidum IgG+IgM Se rPl-Impon 12-08-2024 Reagin and Treponema pallidum IgG and IgM [Interp] Cannot exclude recent Treponemal infection if specimen collected within 7-10 days after appearance of suspect lesions or 2-3 weeks after an exposure. Clinical correlation is required. Normal [facility] Comment on above: Order Comment: Speci men Type: BLOOD SPECIMENOrdering Facility: [facility] Address: [address] [place], [place] [address] Performed By: #### 7 3752-8 ####[facility] LABCLIA [id number] [place] [address] [place] T3 SerPl-mCncon 12-08-2024 T3 [Mass/Vol] 105 ng/dL Normal 79-165 [facility] Comment on above: Order Comment: Speci men Type: BLOOD SPECIMENOrdering Facility: [facility] Address: [address] [place] [address] Performed By: #### 3 053-6, 43643-5, 3015-3, 3027 ####[facility] LABCLIA [id number] [place] [address] [place] T4 Free SerPl-mCncon 025 Free T4 [Mass/Vol] 1.4 ng/dL Normal 0.9-1.7 [facility] Comment on above: Order Comment: Speci men Type: BLOOD SPECIMENOrdering Facility: [facility] Address: [address] [place] [address] Performed By: #### 3 053-6, 53750-2, 3015-3, 3027 ####[facility] LABIA [id number] [place] [address] [place] TSH SerPl-aCncon 12-08-2024 TSH Qn 4.240 m[IU]/L High 0.270-4.200 [facility] Comment on above: Order Comment: Speci men Type: BLOOD SPECIMENOrdering Facility: [facility] Address: [address] [place] [address] Performed By: #### 3 053-6, 64353-6, 3015-3, 3027 ####[facility] LABCLIA [id number] [place] [id number] [place] Vit B12 SerPl-mCncon 05-02-2 025 Cobalamin (Vitamin B12) [Mass/Vol] 302 pg/mL Normal 232-1245 [facility] Comment on above: Order Comment: Speci men Type: BLOOD SPECIMENOrdering Facility: [facility] Address: [address] [place] [id number] Performed By: #### 2 4323-8, 2132-9, 2284-8 ####[facility] LABCLIA [id number] [address] [place] [id number] [facility] CNOVon 12-07-2024 CNOV Office Visit (FAMPWS ) YESSENIATYLER ([id number]) 1955 F Date Time Provider Department 12/07/24 4:20 PM NAI MENDOZA During your visit today, we recorded the following information about you: Pulse Blood pressure Weight 63/minute 111/68 73 kg Nai Mendoza APRN.BD SPECIAL EDUCATION TEACHER 12/07/2024 4:56 PM Signed Chief Complaint Patient presents with: Anxiety memory concern HPI Tyler Casas is a 69 year old female who presents here today for Above Complaints. Memory Issues: - Onset of memory issues after resuming trazodone. - Difficulty remembering recent events, such as what she just ate. - MMSE score: 27/30. Anxiety: - Increased anxiety episodes, including feeling like the room is closing in. - Episodes require going outside to calm down. - Anxiety episodes have become more frequent. Insomnia: - Poor sleep quality, even while taking trazodone. - Sleep is fragmented and restless. - Difficulty falling asleep; experiences anxiety when trying to sleep. - Reports feeling tired but unable to sleep due to a racing mind. - Has tried breathing exercises with variable success. - Longstanding history of insomnia. - Goes to bed around 20:00-22:00. Past medical history, appointments, medications, allergies reviewed. Previous Medical History PAST MEDICAL HISTORY Diagnosis Date Essential hypertension 11/10/2024 Obesity Other and unspecified hyperlipidemia Snoring Previous Surgical History PAST SURGICAL HISTORY Procedure Laterality Date DELIVERY ONLY , low cervical COLONOSCOPY FLX DX W/COLLJ SPEC WHEN PFRMD 04/10/05 Colonoscopy COLONOSCOPY FLX DX W/COLLJ SPEC WHEN PFRMD 05-07-15 TONSILLECTOMY AND ADENOIDECTOMY T/A (under age 12 years) Family History FAMILY HISTORY Problem Relation Age of Onset Hypertension Mother Coronary Artery Disease Mother Stroke Mother Alzheimer's Disease Father Coronary Artery Disease Father Hypertension Father Stroke Father Diabetes Sister Hypertension Sister Breast Cancer Sister 59 Colon Cancer Maternal Grandfather Patient Allergies ALLERGIES Allergen Reactions Cleocin [Clindamyci* Tetracycline Current Medications Current Outpatient Medications on File Prior to Visit Medication Sig traZODone (DESYREL) 50 mg tablet TAKE 1 TABLET BY MOUTH EVERYDAY AT BEDTIME lisinopril (ZESTRIL) 10 mg tablet Take 1 tablet by mouth once daily. simvastatin (ZOCOR) 80 mg tablet Take 1 tablet by mouth daily at bedtime. vit C,N-Ho-fcpnw-lutein-yfn los (PRESERVISION AREDS-2) 250-90-40-1 mg Take 1 capsule by mouth twice daily with meals. calcium carbonate 600 mg-cholecalciferol 400 units (CALCIUM 600 + D) 600 mg(1,500mg) -400 unit tab Take 1 tablet by mouth twice daily. multivitamins(MULTIPLE VITAMIN TAB) Take one(1) tablet daily. No current facility-administered medications on file prior to visit. Social History Social History Tobacco Use Smoking status: Never Smokeless tobacco: Never Vaping Use Vaping status: Never Used Substance Use Topics Alcohol use: No Drug use: No Review of Symptoms REVIEW OF SYSTEMS SEE HPI EXAM: BP 111/68 Pulse 63 Wt 73 kg (160 lb 15 oz) LMP 02/13/2005 BMI 28.16 kg/m? General Appearance: Well appearing, alert, in no acute distress, well-hydrated, well nourished. Neurologic: Gait normal. Reflexes normal and symmetric. Sensation grossly intact.. Health Maintenance List DTaP,Tdap,Td Vaccine(3 - Tdap) due on 10/02/2020 Mammogram Screening due on 06/10/2024 Advance Directive Discussion due on 08/09/2024 Depression Screening due on 11/28/2024 Covid-19 Vaccine( season) due on 12/09/2024 Colorectal Cancer Screening due on 05/07/2025 Diabetes Screening due on 12/05/2026 Lipid Screening due on 12/05/2028 Bone Density Screening Completed Influenza Vaccine Completed RSV Vaccine Completed Shingrix Vaccine Completed Pneumococcal Vaccine: 50+ Completed Hepatitis C Screening Discontinued ASSESSMENT/PLAN: 1. Memory loss - ICD9: 780.93, ICD10: R41.3 (primary diagnosis) - SYPHILIS TREPONEMAL W/REFLEX - THYROID STIMULATING HORMONE - T3 - T4 FREE/FREE THYROXINE - URINALYSIS, WITH MICROSCOPIC - VITAMIN B12 - FOLATE, SERUM - MRI BRAIN WO IVCON - BACH SCREENING TEST - UA DIP, URINE (POC) 2. Chronic insomnia - ICD9: 780.52, ICD10: F51.04 - QUETIAPINE 25 MG TABLET 3. Claustrophobia - ICD9: 300.29, ICD10: F40.240 - LORAZEPAM 1 MG TABLET 4. Hyperlipidemia, mixed - ICD9: 272.2, ICD10: E78.2 - Control undetermined, due for labs - Continue current medications - Counseled on healthy diet and regular exercise - LIPID PANEL, FASTING 5. Medication management - ICD9: V58.69, ICD10: Z79.899 - COMPLETE BLOOD COUNT AND DIFFERENTIAL - COMPREHENSIVE METABOLIC PANEL 6. Screening for diabetes mellitus - ICD9: V77.1, ICD10: Z13.1 - HEMOGLOBIN A1C Follo (more content not included)... Normal [facility] UA DIP, URINE (POC)on 2024 BILIRUBIN UA (POCT) Negative Negative [facility] CLARITY UA (POCT) Clear [facility] COLOR UA (POCT) Yellow [facility] GLUCOSE UA (POCT) Negative Negative mg/dL [facility] Hemoglobin Ql (U) Negative Negative [facility] KETONE UA (POCT) Negative Negative mg/dL [facility] LEUKOCYTES UA (POCT) Negative Negative [facility] NITRITE UA (POCT) Negative Negative [facility] PH UA (POCT) 6.5 4.5 - 8.0 [facility] Protein Ql (U) Negative Negative mg/dL [facility] SPECIFIC GRAVITY UA (POCT) 1.015 1.005 - 1.030 [facility] UROBILINOGEN UA (POCT) 0.2 Normal E.U./dL [facility] Location:[facility], [address] [place] [address], [place], [place], [id number] [place] [address] POINT OF CARE [facility] CNPKatt 11-28-2024 CNPN Telephone (FAMPWS) TYLER CASAS ([id number]) 1955 F Date Time Provider Department 11/28/24 [facility] During your visit today, we recorded the following information about you: Mag Roland LPN 11/28/2024 8:40 AM Signed Pt's MICHELLE Vernell calls to report pt has an appt on 11/30 for Medicare Wellness. Asking if pt can get labs done before appt. If so call Cori back with lab orders. Vernell also reports pt cut cholesterol dose in half on her own. Cori wanted to let dr know this before labs resulted. Vernell also reports pt is having anxiety issues and memory issues. CAlled pt to ask if pt gives permission for Corjosr to talk about and receive medical information. Pt gave permission. CLARE Khan Christopher B, MD 11/28/2024 9:01 AM Signed With these complaints, I would recommend waiting until OV to order labs. Should be made aware that new complaints such as anxiety and memory concerns are not covered under medicare wellness exam. May need to address these first and reschedule medicare wellness. Teresa Davison LPN 11/28/2024 9:09 AM Signed Called MICHELLE and reviewed message with her. She voiced understanding. Teresa Davison LPN Allergies As of Date: 11/28/2024 Noted Allergy Reaction CLEOCIN (CLINDAMYCIN HCL) 08/19/2005 TETRACYCLINE 08/19/2005 Date Reviewed: 11/10/2024 Reviewed by: Tyra Yeager LPN - Fully Assessed Reason for Visit: Lab Orders [5208] Prescriptions as of 11/28/2024 - lisinopril (ZESTRIL) 10 mg tablet Take 1 tablet by mouth once daily. - traZODone (DESYREL) 50 mg tablet Take 1 tablet by mouth daily at bedtime. - simvastatin (ZOCOR) 80 mg tablet Take 1 tablet by mouth daily at bedtime. - vit C,D-Rc-elpeb-lutein-yfn los (PRESERVISION AREDS-2) 250-90-40-1 mg Take 1 capsule by mouth twice daily with meals. - calcium carbonate 600 mg-cholecalciferol 400 units (CALCIUM 600 + D) 600 mg(1,500mg) -400 unit tab Take 1 tablet by mouth twice daily. - multivitamins(MULTIPLE VITAMIN TAB) Take one(1) tablet daily. Problem List As Of Date 11/28/2024 Noted Resolved Umbilical hernia without mention of obstruction*07/17/2010 12/06/2014 Fracture of fibula, distal, right, closed [S82.*06/07/2012 12/06/2014 Arthritis of knee, left [M17.12] 12/06/2014 Anxiety [F41.9] 12/06/2014 Special screening for malignant neoplasms, colo*03/26/2015 Hyperlipidemia LDL goal <100 [E78.5] 03/10/2017 Family history of breast cancer in sister [Z80.*03/10/2017 Family history of heart disease [Z82.49] 03/10/2017 Obesity [E66.9] 11/12/2022 Encounter Status:Closed by TERESA DAVISON on 11/28/24 [facility] Silvia 11-10-2024 CNOV Office Visit (FAMPWS ) TYLER CASAS ([id number]) 1955 F Date Time Provider Department 11/10/24 9:20 AM KENDRA MURPHY During your visit today, we recorded the following information about you: Pulse Respiration Blood pressure Weight 54/minute 18/minute 150/70 75.3 kg Kendra Murphy APRN.GRETA 11/10/2024 9:57 AM Signed 11/10/2024 Patient presents with: BP Check SUBJECTIVE: This is a 69 year old that is here today for Above Complaints. BP elevated at last office appointment. Not checking BP at home. Denies visual changes, headaches lightheadedness, dizziness, slurred speech, facial drooping, extremity numbness tingling or weakness PAST MEDICAL HISTORY Diagnosis Date Obesity Other and unspecified hyperlipidemia Snoring ALLERGIES Cleocin [Clindamycin Hcl] and Tetracycline MEDICATIONS Current Outpatient Medications Medication Sig traZODone (DESYREL) 50 mg tablet Take 1 tablet by mouth daily at bedtime. simvastatin (ZOCOR) 80 mg tablet Take 1 tablet by mouth daily at bedtime. vit C,J-Kr-odaer-lutein-yfn los (PRESERVISION AREDS-2) 250-90-40-1 mg Take 1 capsule by mouth twice daily with meals. calcium carbonate 600 mg-cholecalciferol 400 units (CALCIUM 600 + D) 600 mg(1,500mg) -400 unit tab Take 1 tablet by mouth twice daily. multivitamins(MULTIPLE VITAMIN TAB) Take one(1) tablet daily. No current facility-administered medications for this visit. Medications and allergies reviewed by this provider. SOCIAL HISTORY Social History Tobacco Use Smoking status: Never Smokeless tobacco: Never Vaping Use Vaping status: Never Used Substance Use Topics Alcohol use: No Drug use: No REVIEW OF SYSTEMS All other reviewed and negative other than HPI. OBJECTIVE: BP 150/70 Pulse (!) 54 Resp 18 Wt 75.3 kg (166 lb) LMP 02/13/2005 SpO2 97% BMI 29.05 kg/m? . Vital signs reviewed by this provider. APPEARANCE Well appearing, alert, in no acute distress, well-hydrated, well nourished. EYES conjunctiva and sclera normal. NECK Supple, no adenopathy; thyroid symmetric, normal size, no bruits HEART RRR with normal S1 and S2, no murmurs, no gallops, no JVD appreciated LUNG clear to auscultation. No wheezes, rhonchi or rales EXTREMITIES Extremities normal, No deformities, No skin discoloration, and No edema SKIN Skin color, texture, turgor normal, no suspicious rashes or lesions to exposed skin Latest Ref [facility] 12/06/2023 WBC 3.70 - 11.00 k/uL 3.88 RBC 3.90 - 5.20 m/uL 4.62 Hemoglobin 11.5 - 15.5 g/dL 14.9 Hematocrit 36.0 - 46.0 % 45.4 MCV 80.0 - 100.0 fL 98.3 MCH 26.0 - 34.0 pg 32.3 MCHC 30.5 - 36.0 g/dL 32.8 RDW-CV 11.5 - 15.0 % 13.1 Platelet Count 150 - 400 k/uL 284 MPV 9.0 - 12.7 fL 8.6 (L) Neut% % 49.7 Abs Neut (ANC) 1.45 - 7.50 k/uL 1.93 Lymph% % 36.6 Abs Lymph 1.00 - 4.00 k/uL 1.42 Early% % 9.8 Abs Early <0.87 k/uL 0.38 Eosin% % 2.8 Abs Eosin <0.46 k/uL 0.11 Baso% % 0.8 Abs Baso <0.11 k/uL 0.03 Immature Gran % % 0.3 IMMATURE GRANS (ABS) <0.10 k/uL <0.03 NRBC /100 WBC 0.0 Absolute nRBC <0.01 k/uL <0.01 DTYPE Auto Protein, Total 6.3 - 8.0 g/dL 6.9 Albumin 3.9 - 4.9 g/dL 4.3 Calcium 8.5 - 10.2 mg/dL 9.5 Bilirubin, Total 0.2 - 1.3 mg/dL 0.4 Alkaline Phosphatase 34 - 123 U/L 90 AST 13 - 35 U/L 27 ALT 7 - 38 U/L 18 Glucose 74 - 99 mg/dL 86 BUN 7 - 21 mg/dL 8 Creatinine 0.58 - 0.96 mg/dL 0.49 (L) Sodium 136 - 144 mmol/L 142 Potassium 3.7 - 5.1 mmol/L 4.2 Chloride 97 - 105 mmol/L 105 CO2 22 - 30 mmol/L 25 Anion Gap 9 - 18 mmol/L 12 eGFR >=60 mL/min/1.73m? 102 Cholesterol, Total <200 mg/dL 176 Triglyceride <150 mg/dL 67 HDL Cholesterol >39 mg/dL 68 Non HDL Cholesterol <130 mg/dL 108 Fasting Time hrs 12 VLDL Cholesterol <30 mg/dL 13 TC:HDL Ratio <5.10 2.59 LDL Cholesterol <100 mg/dL 95 LDL:HDL Ratio <2.54 1.40 Hemoglobin A1C 4.3 - 5.6 % 4.8 Estimated Average Glucose mg/dL 91 Legend: (L) Low DTaP,Tdap,Td Vaccine(3 - Tdap) due on 10/02/2020 Mammogram Screening due on 06/10/2024 Advance Directive Discussion due on 08/09/2024 Depression Screening due on 11/28/2024 Covid-19 Vaccine() due on 12/09/2024 Colorectal Cancer Screening due on 05/07/2025 Diabetes Screening due on 12/05/2026 Lipid Screening due on 12/05/2028 Bone Density Screening Completed Influenza Vaccine Completed RSV Vaccine Completed Shingrix Vaccine Completed Pneumococcal Vaccine: 50+ Completed Hepatitis C Screening Discontinued ASSESSMENT/PLAN: 1. Hypertension, essential - ICD9: 401.9, ICD10: I10 - New diagnosis - Start lisinopril - Recommend home blood pressure monitoring, to bring results to next visit - Encouraged sodium restriction, DASH or Mediterranean diet - Recommend regular aerobic exercise - Follow up in 4 weeks for hypertension visit - LISINOPRIL 10 MG TABLET Kendra Murphy, EXECUTIVE CYBER LEADER.BD SPECIAL EDUCATION TEACHER Prescriptio (more content not included)... Normal [facility] CNOVon 11-06-2024 CNOV Office Visit (VINAYWS ) TYLER CASAS ([id number]) 1955 F Date Time Provider Department 11/06/24 9:20 AM NAI MENDOZA During your visit today, we recorded the following information about you: Pulse Blood pressure Weight 66/minute 151/71 75 kg Amadeo NaiROSA.BD SPECIAL EDUCATION TEACHER 11/06/2024 9:32 AM Signed Chief Complaint Patient presents with: Sleep Problem HPI Tyler Casas is a 69 year old female who presents here today for Above Complaints.. Patient presents for sleeping concerns. Patient reports she has chronic insomnia and takes melatonin occasionally for sleep. Denies ever trying medication to help her sleep. Past medical history, appointments, medications, allergies reviewed. Previous Medical History PAST MEDICAL HISTORY Diagnosis Date Obesity Other and unspecified hyperlipidemia Snoring Previous Surgical History PAST SURGICAL HISTORY Procedure Laterality Date DELIVERY ONLY , low cervical COLONOSCOPY FLX DX W/COLLJ SPEC WHEN PFRMD 04/10/05 Colonoscopy COLONOSCOPY FLX DX W/COLLJ SPEC WHEN PFRMD 05-07-15 TONSILLECTOMY AND ADENOIDECTOMY T/A (under age 11 years) Family History FAMILY HISTORY Problem Relation Age of Onset Hypertension Mother Coronary Artery Disease Mother Stroke Mother Alzheimer's Disease Father Coronary Artery Disease Father Hypertension Father Stroke Father Diabetes Sister Hypertension Sister Breast Cancer Sister 59 Colon Cancer Maternal Grandfather Patient Allergies ALLERGIES Allergen Reactions Cleocin [Clindamyci* Tetracycline Current Medications Current Outpatient Medications on File Prior to Visit Medication Sig simvastatin (ZOCOR) 80 mg tablet Take 1 tablet by mouth daily at bedtime. vit C,R-Tb-itseq-lutein-yfn los (PRESERVISION AREDS-2) 250-90-40-1 mg Take 1 capsule by mouth twice daily with meals. calcium carbonate 600 mg-cholecalciferol 400 units (CALCIUM 600 + D) 600 mg(1,500mg) -400 unit tab Take 1 tablet by mouth twice daily. multivitamins(MULTIPLE VITAMIN TAB) Take one(1) tablet daily. No current facility-administered medications on file prior to visit. Social History Social History Tobacco Use Smoking status: Never Smokeless tobacco: Never Vaping Use Vaping status: Never Used Substance Use Topics Alcohol use: No Drug use: No Review of Symptoms REVIEW OF SYSTEMS SEE HPI EXAM: BP 151/71 Pulse 66 Wt 75 kg (165 lb 5.5 oz) LMP 02/13/2005 BMI 28.93 kg/m? General Appearance: Well appearing, alert, in no acute distress, well-hydrated, well nourished. Lungs: Lungs clear to auscultation. No wheezing, rhonchi, rales.. Heart: RRR without murmur, gallop, or rubs. No ectopy. Health Maintenance List DTaP,Tdap,Td Vaccine(3 - Tdap) due on 10/02/2020 Mammogram Screening due on 06/10/2024 Advance Directive Discussion due on 08/09/2024 Depression Screening due on 11/28/2024 Covid-19 Vaccine() due on 12/09/2024 Colorectal Cancer Screening due on 05/07/2025 Diabetes Screening due on 12/05/2026 Lipid Screening due on 12/05/2028 Bone Density Screening Completed Influenza Vaccine Completed RSV Vaccine Completed Shingrix Vaccine Completed Pneumococcal Vaccine: 50+ Completed Hepatitis C Screening Discontinued ASSESSMENT/PLAN: 1. Chronic insomnia - ICD9: 780.52, ICD10: F51.04 (primary diagnosis) - TRAZODONE 50 MG TABLET 2. Elevated BP without diagnosis of hypertension - ICD9: 796.2, ICD10: R03.0 Transient BP elevation - Encouraged dietary sodium restriction/DASH diet - Recommended regular aerobic exercise. - Recommend home blood pressure monitoring, to bring results in on next visit - Follow up in 1 month for BP recheck. - Goal of BP <130/80 Nai Mendoza, EXECUTIVE CYBER LEADER.BD SPECIAL EDUCATION TEACHER Allergies As of Date: 11/06/2024 Noted Allergy Reaction CLEOCIN (CLINDAMYCIN HCL) 08/19/2005 TETRACYCLINE 08/19/2005 Date Reviewed: 11/06/2024 Reviewed by: Suri Dumont MA - Fully Assessed Reason for Visit: Sleep Problem [100] Primary Visit Diagnosis:Chronic insomnia [F51.04] Other Visit Diagnosis:Elevated BP without diagnosis of hypertension [R03.0] Order(s):traZODone (DESYREL) 50 mg tabletTake 1 tablet by mouth daily at bedtime.Disp: 30 tabletRfl: 0 Prescriptions as of 11/06/2024 - traZODone (DESYREL) 50 mg tablet Take 1 tablet by mouth daily at bedtime. - simvastatin (ZOCOR) 80 mg tablet Take 1 tablet by mouth daily at bedtime. - vit C,J-Qh-rfsuo-lutein-yfn los (PRESERVISION AREDS-2) 250-90-40-1 mg Take 1 capsule by mouth twice daily with meals. - calcium carbonate 600 mg-cholecalciferol 400 units (CALCIUM 600 + D) 600 mg(1,500mg) -400 unit tab Take 1 tablet by mouth twice daily. - multivitamins(MULTIPLE VITAMIN TAB) Take one(1) tablet daily. Problem List As Of Date 11/06/2024 Noted Resolved Umbilical hernia without mention of obstruction*12/0 (more content not included)... Normal [facility] CT NECK SOFT TISSUE WO IVCON on 10-17-2024 CT NECK SOFT TISSUE WO IVCON * * *Final Report* * * DATE OF EXAM: Oct 17 2024 8:43AM [facility] - CT NECK SOFT TISSUE WO IVCON / PROCEDURE REASON: multiple diagnoses * * * * Physician Interpretation * * * * CT NECK SOFT TISSUE WO IVCON History: Localized enlarged lymph nodes Neck swelling Technique: A series of contiguous helical scans were performed from the skull base to the aortic arch without intravenous contrast. CT Radiation dose: Integrated Dose-length product (DLP) for this visit = 558 mGy*cm. CT Dose Reduction Employed: Automated exposure control(AEC) and iterative recon COMPARISON: Head/neck ultrasound 09/21/2024 RESULT: Postoperative Change: None apparent. Aerodigestive tract: No obvious abnormality along the aerodigestive tract within the limitations of this noncontrast study per Major salivary glands: No obvious mass within the major salivary glands within the limitations of this noncontrast study. Thyroid gland: No discrete thyroid nodule identified Lymph Nodes: No obvious enlarged cervical lymph nodes, within the limitations of this noncontrast study. Carotid/Parapharyngeal/ Retropharyngeal Spaces:Patent extracranial carotid systems and internal jugular veins bilaterally. No significant prevertebral edema or retropharyngeal effusion Orbits, Face and Skull Base: Visualized paranasal sinuses are clear. The orbits are unremarkable. Imaged intracranial contents: No intracranial mass effect or hydrocephalus. No abnormal intracranial enhancement. Cervical spine and remaining osseous structures: No discrete osteolytic or osteoblastic process. Mild to moderate spondylotic changes in the visualized spine. Lung apices: Clear of focal consolidation or mass. Other: Not applicable. IMPRESSION: No obvious mass or suspicious adenopathy within the soft tissues of the neck, within the limitations of this noncontrast study. Grout Machine Tender: [facility] Transcribe Date/Time: Oct 17 2024 9:02A Dictated by : KENYA KAYE MD This examination was interpreted and the report reviewed and electronically signed by: KENYA KAYE MD on Oct 17 2024 6:37PM EST [id number] Normal [facility] CT Neck WO contraston 2024 IMPRESSION: No obvious mass or suspicious adenopathy within the soft tissues of the neck, within the limitations of this noncontrast study. Grout Machine Tender: [facility] Transcribe Date/Time: Oct 17 2024 9:02A Dictated by : KENYA KAYE MD This examination was interpreted and the report reviewed and electronically signed by: KENYA KAYE MD on Oct 17 2024 6:37PM EST DIVISION OF RADIOLOGY * * *Final Report* * * DATE OF EXAM: Oct 17 2024 8:43AM [facility] - CT NECK SOFT TISSUE WO IVCON / PROCEDURE REASON: multiple diagnoses * * * * Physician Interpretation * * * * CT NECK SOFT TISSUE WO IVCON History: Localized enlarged lymph nodes Neck swelling Technique: A series of contiguous helical scans were performed from the skull base to the aortic arch without intravenous contrast. CT Radiation dose: Integrated Dose-length product (DLP) for this visit = 558 mGy*cm. CT Dose Reduction Employed: Automated exposure control(AEC) and iterative recon COMPARISON: Head/neck ultrasound 09/21/2024 RESULT: Postoperative Change: None apparent. Aerodigestive tract: No obvious abnormality along the aerodigestive tract within the limitations of this noncontrast study per Major salivary glands: No obvious mass within the major salivary glands within the limitations of this noncontrast study. Thyroid gland: No discrete thyroid nodule identified Lymph Nodes: No obvious enlarged cervical lymph nodes, within the limitations of this noncontrast study. Carotid/Parapharyngeal/ Retropharyngeal Spaces:Patent extracranial carotid systems and internal jugular veins bilaterally. No significant prevertebral edema or retropharyngeal effusion Orbits, Face and Skull Base: Visualized paranasal sinuses are clear. The orbits are unremarkable. Imaged intracranial contents: No intracranial mass effect or hydrocephalus. No abnormal intracranial enhancement. Cervical spine and remaining osseous structures: No discrete osteolytic or osteoblastic process. Mild to moderate spondylotic changes in the visualized spine. Lung apices: Clear of focal consolidation or mass. Other: Not applicable. DIVISION OF RADIOLOGY Provider, [facility] - 10/17/2024 * * *Final Report* * * DATE OF EXAM: Oct 17 2024 8:43AM [facility] - CT NECK SOFT TISSUE WO IVCON / PROCEDURE REASON: multiple diagnoses * * * * Physician Interpretation * * * * CT NECK SOFT TISSUE WO IVCON History: Localized enlarged lymph nodes Neck swelling Technique: A series of contiguous helical scans were performed from the skull base to the aortic arch without intravenous contrast. CT Radiation dose: Integrated Dose-length product (DLP) for this visit = 558 mGy*cm. CT Dose Reduction Employed: Automated exposure control(AEC) and iterative recon COMPARISON: Head/neck ultrasound 09/21/2024 RESULT: Postoperative Change: None apparent. Aerodigestive tract: No obvious abnormality along the aerodigestive tract within the limitations of this noncontrast study per Major salivary glands: No obvious mass within the major salivary glands within the limitations of this noncontrast study. Thyroid gland: No discrete thyroid nodule identified Lymph Nodes: No obvious enlarged cervical lymph nodes, within the limitations of this noncontrast study. Carotid/Parapharyngeal/ Retropharyngeal Spaces:Patent extracranial carotid systems and internal jugular veins bilaterally. No significant prevertebral edema or retropharyngeal effusion Orbits, Face and Skull Base: Visualized paranasal sinuses are clear. The orbits are unremarkable. Imaged intracranial contents: No intracranial mass effect or hydrocephalus. No abnormal intracranial enhancement. Cervical spine and remaining osseous structures: No discrete osteolytic or osteoblastic process. Mild to moderate spondylotic changes in the visualized spine. Lung apices: Clear of focal consolidation or mass. Other: Not applicable. IMPRESSION IMPRESSION: No obvious mass or suspicious adenopathy within the soft tissues of the neck, within the limitations of this noncontrast study. Grout Machine Tender: [facility] Transcribe Date/Time: Oct 17 2024 9:02A Dictated by : KENYA KAYE MD This examination was interpreted and the report reviewed and electronically signed by: KENYA KAYE MD on Oct 17 2024 6:37PM EST [facility] Radiology Study observation (narrative) [facility] CT Neck WO contrastOrdered B y: Ccf Provider on 10-17-2024 [facility] CNPNon 10-12-2024 CNPN Telephone (FAMPWS) TYLER CASAS ([id number]) 1955 F Date Time Provider Department 10/12/24 JUNO HIGGINBOTHAM During your visit today, we recorded the following information about you: Pat Song, JENNIFER 10/12/2024 8:58 AM Signed Patient calling to give Brianne Murphy CNP a message. Patient was seen by Kendra on 08/29/2024 for neck swelling. Pt had US on 09/21/2024 and it did not show any abnormality in area. Pt was told that if issue worsened that a repeat ultrasound or CT could be done. Patient states her sx's are not worse, but are no better. Same sx's as 08/29/24 OV. Please advise patient. Pat Song, Juno Church MD 10/12/2024 2:[address] scan ordered. Please assist with scheduling. Rowena Washington RN 10/12/2024 3:31 PM Signed Took order to PSS as it was put in as YASMIN. JENNIFER Suggs Stephanie 10/12/2024 4:07 PM Signed 1st attempt - left messages on both home and mobile to return call. When patient calls, please schedule YASMIN CT. Cherri Blas LPN 10/12/2024 4:44 PM Signed Patient returned call and went over notes below, assisted with transfer to machine boss to get YASMIN CT neck soft tissue appt scheduled. Allergies As of Date: 10/12/2024 Noted Allergy Reaction CLEOCIN (CLINDAMYCIN HCL) 08/19/2005 TETRACYCLINE 08/19/2005 Date Reviewed: 08/29/2024 Reviewed by: Tyra Yeager LPN - Fully Assessed Reason for Visit: Patient Update [1234] Patient Request [1696] Primary Visit Diagnosis:Localized enlarged lymph nodes [R59.0] Other Visit Diagnosis:Neck swelling [R22.1] Order(s):CT NECK SOFT TISSUE WO DERIANON [[id number]] Order #: [id number] FUTURE Prescriptions as of 10/12/2024 - simvastatin (ZOCOR) 80 mg tablet Take 1 tablet by mouth daily at bedtime. - vit C,Z-Wf-qleqb-lutein-yfn los (PRESERVISION AREDS-2) 250-90-40-1 mg Take 1 capsule by mouth twice daily with meals. - calcium carbonate 600 mg-cholecalciferol 400 units (CALCIUM 600 + D) 600 mg(1,500mg) -400 unit tab Take 1 tablet by mouth twice daily. - multivitamins(MULTIPLE VITAMIN TAB) Take one(1) tablet daily. Problem List As Of Date 10/12/2024 Noted Resolved Umbilical hernia without mention of obstruction*07/17/2010 12/06/2014 Fracture of fibula, distal, right, closed [S82.*06/07/2012 12/06/2014 Arthritis of knee, left [M17.12] 12/06/2014 Anxiety [F41.9] 12/06/2014 Special screening for malignant neoplasms, colo*03/26/2015 Hyperlipidemia LDL goal <100 [E78.5] 03/10/2017 Family history of breast cancer in sister [Z80.*03/10/2017 Family history of heart disease [Z82.49] 03/10/2017 Obesity [E66.9] 11/12/2022 Encounter Status:Closed by ROWENA WASHINGTON on 10/12/24 Normal [facility] US Head and neck soft tissue on 09-24-2024 IMPRESSION: No ultrasound abnormality is seen at the area of clinical interest. If the palpable abnormality worsens then repeat ultrasound or CT scan with marker placed over the area of clinical interest could reassess the region. Grout Machine Tender: [facility] Transcribe Date/Time: Sep 24 2024 5:36A Dictated by : ALEXIS WALL MD This examination was interpreted and the report reviewed and electronically signed by: ALEXIS WALL MD on Sep 24 2024 5:37AM EST DIVISION OF RADIOLOGY * * *Final Report* * * DATE OF EXAM: Sep 21 2024 10:49AM [facility]52 - US HEAD/NECK SOFT TISSUE OTHER / PROCEDURE REASON: Neck swelling * * * * Physician Interpretation * * * * SOFT TISSUE ULTRASOUND HISTORY: RIGHT lateral Neck swelling . . TECHNIQUE: Soft tissue ultrasound of the RIGHT lateral neck. Images were obtained and stored in a permanent archive. COMPARISON: None RESULT: Ultrasound examination of the RIGHT lateral neck at the site of clinical symptoms shows no ultrasound evidence of abnormality including no ultrasound evidence of fluid collection or lesion. - DIVISION OF RADIOLOGY Provider, [facility] - 09/24/2024 * * *Final Report* * * DATE OF EXAM: Sep 21 2024 10:49AM [facility] - US HEAD/NECK SOFT TISSUE OTHER / PROCEDURE REASON: Neck swelling * * * * Physician Interpretation * * * * SOFT TISSUE ULTRASOUND HISTORY: RIGHT lateral Neck swelling . . TECHNIQUE: Soft tissue ultrasound of the RIGHT lateral neck. Images were obtained and stored in a permanent archive. COMPARISON: None RESULT: Ultrasound examination of the RIGHT lateral neck at the site of clinical symptoms shows no ultrasound evidence of abnormality including no ultrasound evidence of fluid collection or lesion. - IMPRESSION IMPRESSION: No ultrasound abnormality is seen at the area of clinical interest. If the palpable abnormality worsens then repeat ultrasound or CT scan with marker placed over the area of clinical interest could reassess the region. Grout Machine Tender: [facility] Transcribe Date/Time: Sep 24 2024 5:36A Dictated by : ALEXIS WALL MD This examination was interpreted and the report reviewed and electronically signed by: ALEXIS WALL MD on Sep 24 2024 5:37AM EST [facility] US Head and neck soft tissue Ordered By: Cc Provider on 09-24-2024 [facility] US HEAD/NECK SOFT TISSUE OT Jonathan 09-21-2024 US HEAD/NECK SOFT TISSUE OTHER * * *Final Report* * * DATE OF EXAM: Sep 21 2024 10:49AM [facility] - US HEAD/NECK SOFT TISSUE OTHER / PROCEDURE REASON: Neck swelling * * * * Physician Interpretation * * * * SOFT TISSUE ULTRASOUND HISTORY: RIGHT lateral Neck swelling . . TECHNIQUE: Soft tissue ultrasound of the RIGHT lateral neck. Images were obtained and stored in a permanent archive. COMPARISON: None RESULT: Ultrasound examination of the RIGHT lateral neck at the site of clinical symptoms shows no ultrasound evidence of abnormality including no ultrasound evidence of fluid collection or lesion. - IMPRESSION: No ultrasound abnormality is seen at the area of clinical interest. If the palpable abnormality worsens then repeat ultrasound or CT scan with marker placed over the area of clinical interest could reassess the region. Grout Machine Tender: [facility] Transcribe Date/Time: Sep 24 2024 5:36A Dictated by : ALEXIS WALL MD This examination was interpreted and the report reviewed and electronically signed by: ALEXIS WALL MD on Sep 24 2024 5:37AM EST [id number] Normal [facility] US Head and neck soft tissue on 09-21-2024 Radiology Study observation (narrative) [facility] Valarie 09-18-2024 SCOUT Telephone (VINAYWS) TYLER CASAS ([id number]) 1955 F Date Time Provider Department 09/18/24 KENDRA MURPHY During your visit today, we recorded the following information about you: Lyubov Wright 09/18/2024 12:08 PM Signed Patient called to report that the swollen lymph node on right side of neck has not improved. She would like to move forward with having the US that was discussed during last OV on 08/29/24. Please notify patient of plan of care. Kendra Murphy APRN.GRETA 09/18/2024 2:16 PM Signed Order for Ultrasound placed, please assist in scheduling. Kendra Murphy APRN.Tyra Tucker LPN 09/18/2024 3:14 PM Signed Patient aware of US. Please call and assist with scheduling. Tyra Yeager LPN Allergies As of Date: 09/18/2024 Noted Allergy Reaction CLEOCIN (CLINDAMYCIN HCL) 08/19/2005 TETRACYCLINE 08/19/2005 Date Reviewed: 08/29/2024 Reviewed by: Tyra Yeager LPN - Fully Assessed Reason for Visit: Patient Update [1234] Orders [681] Cmt: Ultrasound Primary Visit Diagnosis:Neck swelling [R22.1] Order(s):US HEAD/NECK SOFT TISSUE OTHER [[id number]] Order #: [id number] FUTURE Prescriptions as of 09/25/2024 - simvastatin (ZOCOR) 80 mg tablet Take 1 tablet by mouth daily at bedtime. - vit C,G-Kc-zqnqz-lutein-yfn los (PRESERVISION AREDS-2) 250-90-40-1 mg Take 1 capsule by mouth twice daily with meals. - calcium carbonate 600 mg-cholecalciferol 400 units (CALCIUM 600 + D) 600 mg(1,500mg) -400 unit tab Take 1 tablet by mouth twice daily. - multivitamins(MULTIPLE VITAMIN TAB) Take one(1) tablet daily. Problem List As Of Date 09/18/2024 Noted Resolved Umbilical hernia without mention of obstruction*07/17/2010 12/06/2014 Fracture of fibula, distal, right, closed [S82.*06/07/2012 12/06/2014 Arthritis of knee, left [M17.12] 12/06/2014 Anxiety [F41.9] 12/06/2014 Special screening for malignant neoplasms, colo*03/26/2015 Hyperlipidemia LDL goal <100 [E78.5] 03/10/2017 Family history of breast cancer in sister [Z80.*03/10/2017 Family history of heart disease [Z82.49] 03/10/2017 Obesity [E66.9] 11/12/2022 Encounter Status:Closed by RADHA MENDOZA on 09/25/24 [facility] HAIDERon 08-29-2024 CNOV Office Visit (FAMPWS ) TYLER CASAS ([id number]) 1955 F Date Time Provider Department 08/29/24 9:20 AM KENDRA MURPHY During your visit today, we recorded the following information about you: Temperature Pulse Respiration Blood pressure 98.1 degrees 68/minute 16/minute 140/82 Weight 76.7 kg Kendra Murphy APRN.BD SPECIAL EDUCATION TEACHER 08/29/2024 9:46 AM Signed 08/29/2024 Patient presents with: Acute Visit: Swollen lymph node to right side of neck with right ear discomfort x3 days SUBJECTIVE: This is a 69 year old that is here today for Above Complaints.. Over the weekend noticed an area to right neck that was swollen thinks maybe a lymph node. Does have some on and off right ear pain which has been since April. Using Flonase nasal spray which helps some. No recent illnesses or known sick contacts. Denies pain to area, weight loss, trauma to area, fevers, chills, muscle aches, headaches, rhinorrhea, nasal congestion, sore throat, difficulty swallowing, SOB, dyspnea, wheezing or cough. PAST MEDICAL HISTORY Diagnosis Date Obesity Other and unspecified hyperlipidemia Snoring ALLERGIES Cleocin [Clindamycin Hcl] and Tetracycline MEDICATIONS Current Outpatient Medications Medication Sig simvastatin (ZOCOR) 80 mg tablet Take 1 tablet by mouth daily at bedtime. vit C,Z-Xs-rqikt-lutein-yfn los (PRESERVISION AREDS-2) 250-90-40-1 mg Take 1 capsule by mouth twice daily with meals. calcium carbonate 600 mg-cholecalciferol 400 units (CALCIUM 600 + D) 600 mg(1,500mg) -400 unit tab Take 1 tablet by mouth twice daily. multivitamins(MULTIPLE VITAMIN TAB) Take one(1) tablet daily. No current facility-administered medications for this visit. Medications and allergies reviewed by this provider. SOCIAL HISTORY Social History Tobacco Use Smoking status: Never Smokeless tobacco: Never Vaping Use Vaping status: Never Used Substance Use Topics Alcohol use: No Drug use: No REVIEW OF SYSTEMS All other reviewed and negative other than HPI. OBJECTIVE: BP 140/82 Pulse 68 Temp 36.7 ?C (98.1 ?F) Resp 16 Wt 76.7 kg (169 lb) LMP 02/13/2005 SpO2 94% BMI 29.57 kg/m? . Vital signs reviewed by this provider. APPEARANCE Well appearing, alert, in no acute distress, well-hydrated, well nourished. EYES conjunctiva and sclera normal. EARS External ears normal, canals clear THROAT normal, no erythema NECK FROM. Approximately half dollar sized area of mild swelling subcutaneously to right sternocleidomastoid muscle without any distinct feeling of lymph node or mobile/fixed mass. No erythema, fluctuance, TTP or open wounds HEART RRR with normal S1 and S2, no murmurs, no gallops, no JVD appreciated LUNG clear to auscultation. No wheezes rhonchi or rales SKIN Skin color, texture, turgor normal, no suspicious rashes or lesions to exposed skin DTaP,Tdap,Td Vaccine(3 - Tdap) due on 10/02/2020 Mammogram Screening due on 06/10/2024 Advance Directive Discussion due on 08/09/2024 Depression Screening due on 11/28/2024 Colorectal Cancer Screening due on 05/07/2025 Diabetes Screening due on 12/05/2026 Lipid Screening due on 12/05/2028 Bone Density Screening Completed Influenza Vaccine Completed RSV Vaccine Completed Shingrix Vaccine Completed Covid-19 Vaccine Completed Pneumococcal Vaccine: 50+ Completed Hepatitis C Screening Discontinued ASSESSMENT/PLAN: 1. Neck swelling - ICD9: 784.2, ICD10: R22.1 - consider muscular vs lymph node - no red flag symptoms or exam findings - red flag symptoms discussed, verbalizes understanding - discussed US vs close monitoring - patient will monitor area and return to office if enlarging or area still with swollen in one month would recommend US to ER with red flag symptoms Kendra Podlogar, EXECUTIVE CYBER LEADER.BD SPECIAL EDUCATION TEACHER Prescription instructions reviewed with patient as applicable. Patient advised if symptoms do not improve or if symptoms worsen sooner, to contact their primary care physician. Potential red flag symptoms discussed with the patient. Reviewed appropriate action plan to take if red flag symptoms occur. Patient agreeable to treatment plan. I spent a total of 20 minutes on the date of the service which included preparing to see the patient, [id number] patient care, completing clinical documentation, obtaining and/or reviewing separately obtained history, performing a medically appropriate examination, and counseling and educating the patient/family/caregKendra Juares APRN.BD SPECIAL EDUCATION TEACHER 08/29/2024 9:24 AM Signed If area persists to be swollen would Ultrasound in a month- if enlarging return to office . Allergies As of Date: 08/29/2024 Noted Allergy Reaction CLEOCIN (CLINDAMYCIN HCL) 08/19/2005 TETRACYCLINE 08/19/2005 Date Reviewed: 08/29/2024 Reviewed by: Tyra Yeager LPN - Fully Assessed Reason for Visit: Acute Visit [896] Cmt: Orion (more content not included)... Normal [facility] CNOVon 04-11-2024 CNOV Office Visit (FAMPWS ) TYLER CASAS ([id number]) 1955 F Date Time Provider Department 04/11/24 9:20 AM [facility] During your visit today, we recorded the following information about you: Temperature Pulse Respiration Blood pressure 97.6 degrees 62/minute 16/minute 128/76 Weight 79.4 kg Juno Higginbotham MD 04/11/2024 9:50 AM Signed Chief Complaint Patient presents with: Ear Problem: Right x 2 days pain HPI Tyler Casas is a 68 year old female who presents here today for Above Complaints. Patient complaining of right ear pain for the last 2 days. Described as constant aching pain, current 5/10, without radiation. Tried OTC ear drops without improvement in symptoms. Denies fever/chills, drainage, hearing loss, erythema, swelling, nasal congestion, rhinorrhea, swollen glands, sinus pain/pressure. Past medical history, appointments, medications, allergies reviewed. Previous Medical History PAST MEDICAL HISTORY No date: Obesity No date: Other and unspecified hyperlipidemia No date: Snoring Previous Surgical History PAST SURGICAL HISTORY No date: DELIVERY ONLY Comment: , low cervical 04/10/05: COLONOSCOPY FLX DX W/COLLJ SPEC WHEN PFRMD Comment: Colonoscopy 05-07-15: COLONOSCOPY FLX DX W/COLLJ SPEC WHEN PFRMD No date: TONSILLECTOMY AND ADENOIDECTOMY Comment: T/A (under age 11 years) Family History FAMILY HISTORY Problem Relation Age of Onset Hypertension Mother Coronary Artery Disease Mother Stroke Mother Alzheimer's Disease Father Coronary Artery Disease Father Hypertension Father Stroke Father Diabetes Sister Hypertension Sister Breast Cancer Sister 59 Colon Cancer Maternal Grandfather Patient Allergies ALLERGIES Allergen Reactions Cleocin [Clindamyci* Tetracycline Current Medications Current Outpatient Medications on File Prior to Visit Medication Sig simvastatin (ZOCOR) 80 mg tablet Take 1 tablet by mouth daily at bedtime. vit C,Q-Uh-rwzkw-lutein-yfn los (PRESERVISION AREDS-2) 250-90-40-1 mg Take 1 capsule by mouth twice daily with meals. calcium carbonate 600 mg-cholecalciferol 400 units (CALCIUM 600 + D) 600 mg(1,500mg) -400 unit tab Take 1 tablet by mouth twice daily. multivitamins(MULTIPLE VITAMIN TAB) Take one(1) tablet daily. No current facility-administered medications on file prior to visit. Social History Social History Tobacco Use Smoking status: Never Smokeless tobacco: Never Vaping Use Vaping status: Never Used Substance Use Topics Alcohol use: No Drug use: No Review of Symptoms REVIEW OF SYSTEMS See HPI EXAM: BP 128/76 Pulse 62 Temp 36.4 ?C (97.6 ?F) Resp 16 Wt 79.4 kg (175 lb) LMP 02/13/2005 SpO2 97% BMI 30.62 kg/m? General Appearance: Well appearing, alert, in no acute distress, well-hydrated, well nourished.. Skin: Skin color, texture, turgor normal, no suspicious rashes or lesions. Head: Normocephalic, no masses, lesions, tenderness or abnormalities. Eyes: Anicteric sclera. Pupils are equally round and reactive to light. Extraocular movements are intact. . Ears: Serous effusion of right TM without erythema. Left TM normal. Canals normal. Oropharynx: Lips, mucosa, and tongue normal, teeth and gums normal, oropharynx normal. Neck: Supple, no adenopathy; thyroid symmetric, normal size, no bruits. Lungs: Lungs clear to auscultation. No wheezing, rhonchi, rales.. Heart: RRR without murmur, gallop, or rubs. No ectopy. Health Maintenance List DTaP,Tdap,Td Vaccine(3 - Tdap) due on 10/02/2020 Advance Directive Discussion due on 08/09/2023 Covid-19 Vaccine( season) due on 04/09/2024 Influenza Vaccine(1) due on 04/09/2024 Mammogram Screening due on 06/10/2024 Depression Screening due on 11/28/2024 Colorectal Cancer Screening due on 05/07/2025 Diabetes Screening due on 12/05/2026 Lipid Screening due on 12/05/2028 Bone Density Screening Completed RSV Vaccine Completed Shingrix Vaccine Completed Pneumococcal Vaccine: 65+ Completed Hepatitis C Screening Discontinued ASSESSMENT/PLAN: 1. Non-recurrent acute serous otitis media of right ear - ICD9: 381.01, ICD10: H65.01 Will treat with flonase OTC daily for 1-2 weeks. Discussed ear popping exercises. Red flags for re-assessment reviewed with patient in detail. Juno Higginbotham MD Allergies As of Date: 04/11/2024 Noted Allergy Reaction CLEOCIN (CLINDAMYCIN HCL) 08/19/2005 TETRACYCLINE 08/19/2005 Date Reviewed: 04/11/2024 Reviewed by: Teresa Davison LPN - Fully Assessed Reason for Visit: Ear Problem [38] Cmt: Right x 2 days pain Primary Visit Diagnosis:Non-recurrent acute serous otitis media of right ear [H65.01] Prescriptions as of 04/11/2024 - simvastatin (ZOCOR) 80 mg tablet Take 1 tablet by mouth daily at bedtime. - vit C,N-Jj-ujtcu-lutein-yfn los (PRE (more content not included)... Normal [facility] YUDY SCREENINGon 06-10-2023 [facility] DXA-AXIAL SKELETONon 023 [facility] CBC W Auto Differential pane l (Bld)on 11-13-2022 Basophils (Bld) [#/Vol] 0.03 10*3/uL <0.11 k/uL [facility] Basophils/100 WBC (Bld) 0.5 % [facility] Differential cell count method Nom (Bld) Auto [facility] Eosinophils (Bld) [#/Vol] 0.05 10*3/uL <0.46 k/uL [facility] Eosinophils/100 WBC (Bld) 0.8 % [facility] Erythrocyte distribution width (RBC) [Ratio] 12.7 % 11.5 - 15.0 % [facility] Hematocrit (Bld) [Volume fraction] 46.2 % High 36.0 - 46.0 % [facility] Hemoglobin (Bld) [Mass/Vol] 15.5 g/dL 11.5 - 15.5 g/dL [facility] Immature granulocytes (Bld) [#/Vol] <0.10 k/uL [facility] Immature granulocytes/100 WBC (Bld) 0.2 % [facility] Lymphocytes (Bld) [#/Vol] 2.31 10*3/uL 1.00 - 4.00 k/uL [facility] Lymphocytes/100 WBC (Bld) 38.5 % [facility] MCH (RBC) [Entitic mass] 32.1 pg 26.0 - 34.0 pg [facility] MCHC (RBC) [Mass/Vol] 33.5 g/dL 30.5 - 36.0 g/dL [facility] MCV (RBC) [Entitic vol] 95.7 fL 80.0 - 100.0 fL [facility] Monocytes (Bld) [#/Vol] 0.47 10*3/uL <0.87 k/uL [facility] Monocytes/100 WBC (Bld) 7.8 % [facility] Neutrophils (Bld) [#/Vol] 3.13 10*3/uL 1.45 - 7.50 k/uL [facility] Neutrophils/100 WBC (Bld) 52.2 % [facility] Nucleated RBC (Bld) [#/Vol] <0.01 k/uL [facility] Nucleated RBC/100 WBC (Bld) [Ratio] 0.0 /100 WBC [facility] Platelet mean volume (Bld) [Entitic vol] 8.3 fL Low 9.0 - 12.7 fL [facility] Platelets (Bld) [#/Vol] 327 10*3/uL 150 - 400 k/uL [facility] RBC (Bld) [#/Vol] 4.83 10*6/uL 3.90 - 5.2 0 m/uL [facility] WBC (Bld) [#/Vol] 6.00 10*3/uL 3.70 - 11. 00 k/uL [facility] Comprehensive metabolic 2000 panelon 11-13-2022 Albumin [Mass/Vol] 4.7 g/dL 3.9 - 4.9 g/dL [facility] ALP [Catalytic activity/Vol] 101 U/L 34 - 123 U/L [facility] ALT [Catalytic activity/Vol] 23 U/L 7 - 38 U/L [facility] Anion gap [Moles/Vol] 12 mmol/L 9 - 18 mmol/L [facility] AST [Catalytic activity/Vol] 28 U/L 13 - 35 U/L [facility] Bilirubin [Mass/Vol] 0.4 mg/dL 0.2 - 1.3 mg/dL [facility] Calcium [Mass/Vol] 9.9 mg/dL 8.5 - 10. 2 mg/dL [facility] Chloride [Moles/Vol] 102 mmol/L 97 - 105 mmol/L [facility] CO2 [Moles/Vol] 26 mmol/L 22 - 30 mmol/L [facility] Creatinine [Mass/Vol] 0.52 mg/dL Low 0.58 - 0.96 mg/dL [facility] Estimated Glomerular Filtration Rate 101 mL/min/1.73m >=60 mL/min/1.73m [facility] Glucose [Mass/Vol] 93 mg/dL 74 - 99 mg/dL [facility] Potassium [Moles/Vol] 4.3 mmol/L 3.7 - 5.1 mmol/L [facility] Protein [Mass/Vol] 7.6 g/dL 6.3 - 8.0 g/dL [facility] Sodium [Moles/Vol] 140 mmol/L 136 - 144 mmol/L [facility] Urea nitrogen [Mass/Vol] 11 mg/dL 7 - 21 mg/dL [facility] HbA1c (Bld)on 11-13-2022 Average glucose Estimated from glycated hemoglobin (Bld) [Mass/Vol] 88 mg/dL [facility] HbA1c (Bld) [Mass fraction] 4.7 % 4.3 - 5.6 % [facility] LIPID PANEL, NONFASTINGon Cholesterol [Mass/Vol] 207 mg/dL High <200 mg/dL [facility] HDL Cholesterol, Nonfasting 76 mg/dL >39 mg/dL [facility] LDL Cholesterol, Nonfasting 117 mg/dL High <100 mg/dL [facility] LDL/HDL Ratio, Nonfasting 1.54 mg/dL <2.54 mg/dL [facility] Non HDL Cholesterol, Nonfasting 131 mg/dL High <130 mg/dL [facility] Total Chol/HDL Ratio, Nonfasting 2.72 mg/dL <5.10 mg/dL [facility] Triglycerides, Nonfasting 69 mg/dL <150 mg/dL [facility] VLDL Cholesterol, Nonfasting 14 mg/dL <30 mg/dL [facility] YUDY SCREENING W TOMOon 06-08 [facility] Vital Signs Date Time Vital Sign Value Performing Clinician Facility 03-26-2025 12:43-0400 Body mass index (BMI) [Ratio] 28.93 kg/m2 Richard Duong APRN.BD SPECIAL EDUCATION TEACHER Work Phone: [facility] 03-26-2025 12:43-0400 Body temperature 99 [degF] Richard Duong EXECUTIVE CYBER LEADER.BD SPECIAL EDUCATION TEACHER Work Phone: [facility] 03-26-2025 12:43-0400 Body weight 75 kg Richard Duong EXECUTIVE CYBER LEADER.BD SPECIAL EDUCATION TEACHER Work Phone: [facility] 03-26-2025 12:43-0400 Diastolic blood pressure 64 mm[Hg] Richard Duong EXECUTIVE CYBER LEADER.BD SPECIAL EDUCATION TEACHER Work Phone: [facility] 03-26-2025 12:43-0400 Heart rate 70 /min Richard Duong EXECUTIVE CYBER LEADER.BD SPECIAL EDUCATION TEACHER Work Phone: [facility] 03-26-2025 12:43-0400 Respiratory rate 21 /min Richard Duong EXECUTIVE CYBER LEADER.BD SPECIAL EDUCATION TEACHER Work Phone: [facility] 03-26-2025 12:43-0400 SaO2% (BldA) [Mass fraction] 94 % Richard Duong APRN.BD SPECIAL EDUCATION TEACHER Work Phone: [facility] 03-26-2025 12:43-0400 Systolic blood pressure 130 mm[Hg] Richard Duong EXECUTIVE CYBER LEADER.BD SPECIAL EDUCATION TEACHER Work Phone: [facility] 03-23-2025 09:22-0400 Body mass index (BMI) [Ratio] 28.82 kg/m2 Og Thurston MD Work Phone: [facility] 03-23-2025 09:22-0400 Body temperature 98.1 [degF] Og Thurston MD Work Phone: [facility] 03-23-2025 09:22-0400 Body weight 74.7 kg Og Thurston MD Work Phone: [facility] 03-23-2025 09:22-0400 Diastolic blood pressure 76 mm[Hg] Og Thurston MD Work Phone: [facility] 03-23-2025 09:22-0400 Heart rate 68 /min Og Thurston MD Work Phone: [facility] 03-23-2025 09:22-0400 Respiratory rate 18 /min Og Thurston MD Work Phone: [facility] 03-23-2025 09:22-0400 SaO2% (BldA) [Mass fraction] 97 % Og Thurston MD Work Phone: [facility] 03-23-2025 09:22-0400 Systolic blood pressure 154 mm[Hg] Og Thurston MD Work Phone: [facility] 01-09-2025 08:47-0400 Body mass index (BMI) [Ratio] 27.78 kg/m2 Nai Mendoza APRN.BD SPECIAL EDUCATION TEACHER Work Phone: [facility] 01-09-2025 08:47-0400 Body weight 72 kg Nai Mendoza APRN.BD SPECIAL EDUCATION TEACHER Work Phone: [facility] 01-09-2025 08:47-0400 Diastolic blood pressure 75 mm[Hg] Nai Mendoza APRN.BD SPECIAL EDUCATION TEACHER Work Phone: [facility] 01-09-2025 08:47-0400 Heart rate 58 /min Nai Mendoza APRN.BD SPECIAL EDUCATION TEACHER Work Phone: [facility] 01-09-2025 08:47-0400 Systolic blood pressure 138 mm[Hg] Nai Knoble EXECUTIVE CYBER LEADER.BD SPECIAL EDUCATION TEACHER Work Phone: [facility] 12-07-2024 16:13-0400 Body mass index (BMI) [Ratio] 28.16 kg/m2 Nai Mendoza EXECUTIVE CYBER LEADER.BD SPECIAL EDUCATION TEACHER Work Phone: [facility] 12-07-2024 16:13-0400 Body weight 73 kg Nai Mendoza EXECUTIVE CYBER LEADER.BD SPECIAL EDUCATION TEACHER Work Phone: [facility] 12-07-2024 16:13-0400 Diastolic blood pressure 68 mm[Hg] Nai Mendoza EXECUTIVE CYBER LEADER.BD SPECIAL EDUCATION TEACHER Work Phone: [facility] 12-07-2024 16:13-0400 Heart rate 63 /min Nai Mendoza EXECUTIVE CYBER LEADER.BD SPECIAL EDUCATION TEACHER Work Phone: [facility] 12-07-2024 16:13-0400 Systolic blood pressure 111 mm[Hg] Nai Mendoza EXECUTIVE CYBER LEADER.BD SPECIAL EDUCATION TEACHER Work Phone: [facility] 11-10-2024 09:45-0400 Diastolic blood pressure 70 mm[Hg] Kendra Podlogar EXECUTIVE CYBER LEADER.BD SPECIAL EDUCATION TEACHER Work Phone: [facility] Comment on above: CITLALY BP average 11-10-2024 09:45-0400 Heart rate 54 /min Kendra Podlogar EXECUTIVE CYBER LEADER.BD SPECIAL EDUCATION TEACHER Work Phone: [facility] 11-10-2024 09:45-0400 Systolic blood pressure 150 mm[Hg] Kendra Podlogar EXECUTIVE CYBER LEADER.BD SPECIAL EDUCATION TEACHER Work Phone: [facility] Comment on above: CITLALY BP average 11-10-2024 09:26-0400 Body mass index (BMI) [Ratio] 29.05 kg/m2 Kendra Podlogar EXECUTIVE CYBER LEADER.BD SPECIAL EDUCATION TEACHER Work Phone: [facility] 11-10-2024 09:26-0400 Body weight 75.3 kg Kendra Podlogar EXECUTIVE CYBER LEADER.BD SPECIAL EDUCATION TEACHER Work Phone: [facility] 11-10-2024 09:26-0400 Respiratory rate 18 /min Kendra Podlogar EXECUTIVE CYBER LEADER.BD SPECIAL EDUCATION TEACHER Work Phone: [facility] 11-10-2024 09:26-0400 SaO2% (BldA) [Mass fraction] 97 % Kendra Podlogselene EXECUTIVE CYBER LEADER.BD SPECIAL EDUCATION TEACHER Work Phone: [facility] 11-06-2024 09:24-0400 Diastolic blood pressure 71 mm[Hg] Nai Mendoza EXECUTIVE CYBER LEADER.BD SPECIAL EDUCATION TEACHER Work Phone: [facility] 11-06-2024 09:24-0400 Systolic blood pressure 151 mm[Hg] Nai Mendoza EXECUTIVE CYBER LEADER.BD SPECIAL EDUCATION TEACHER Work Phone: [facility] 11-06-2024 09:17-0400 Body mass index (BMI) [Ratio] 28.93 kg/m2 Nai Mendoza EXECUTIVE CYBER LEADER.BD SPECIAL EDUCATION TEACHER Work Phone: [facility] 11-06-2024 09:17-0400 Body weight 75 kg Nai Mendoza EXECUTIVE CYBER LEADER.BD SPECIAL EDUCATION TEACHER Work Phone: [facility] 11-06-2024 09:17-0400 Heart rate 66 /min Nai Mendoza EXECUTIVE CYBER LEADER.BD SPECIAL EDUCATION TEACHER Work Phone: [facility] 08-29-2024 09:13-0500 Body mass index (BMI) [Ratio] 29.57 kg/m2 Kendra Gunterlogselene EXECUTIVE CYBER LEADER.BD SPECIAL EDUCATION TEACHER Work Phone: [facility] 08-29-2024 09:13-0500 Body temperature 98.1 [degF] Kendra Podlogar EXECUTIVE CYBER LEADER.BD SPECIAL EDUCATION TEACHER Work Phone: [facility] 08-29-2024 09:13-0500 Body weight 76.66 kg Kendra Gunterlogar EXECUTIVE CYBER LEADER.BD SPECIAL EDUCATION TEACHER Work Phone: [facility] 08-29-2024 09:13-0500 Diastolic blood pressure 82 mm[Hg] Kendra Podlogar EXECUTIVE CYBER LEADER.BD SPECIAL EDUCATION TEACHER Work Phone: [facility] 08-29-2024 09:13-0500 Heart rate 68 /min Kendra Gunterlogar EXECUTIVE CYBER LEADER.BD SPECIAL EDUCATION TEACHER Work Phone: [facility] 08-29-2024 09:13-0500 Respiratory rate 16 /min Kendra Podlogar EXECUTIVE CYBER LEADER.BD SPECIAL EDUCATION TEACHER Work Phone: [facility] 08-29-2024 09:13-0500 SaO2% (BldA) [Mass fraction] 94 % Kendra Podlogar EXECUTIVE CYBER LEADER.BD SPECIAL EDUCATION TEACHER Work Phone: [facility] 08-29-2024 09:13-0500 Systolic blood pressure 140 mm[Hg] Kendra Podlogar EXECUTIVE CYBER LEADER.BD SPECIAL EDUCATION TEACHER Work Phone: [facility] 04-11-2024 09:19-0400 Body mass index (BMI) [Ratio] 30.62 kg/m2 Juno Higginbotham MD Work Phone: [facility] 04-11-2024 09:19-0400 Body temperature 97.59 [degF] Juno Higginbotham MD Work Phone: [facility] 04-11-2024 09:19-0400 Body weight 79.38 kg Juno Higginbotham MD Work Phone: [facility] 04-11-2024 09:19-0400 Diastolic blood pressure 76 mm[Hg] Juno Higginbotham MD Work Phone: [facility] 04-11-2024 09:19-0400 Heart rate 62 /min Juno Higginbotham MD Work Phone: [facility] 04-11-2024 09:19-0400 Respiratory rate 16 /min Juno Higginbotham MD Work Phone: [facility] 04-11-2024 09:19-0400 SaO2% (BldA) [Mass fraction] 97 % Juno Higginbotham MD Work Phone: [facility] 04-11-2024 09:19-0400 Systolic blood pressure 128 mm[Hg] Juno Higginbotham MD Work Phone: [facility] 11-29-2023 14:09-0400 Body mass index (BMI) [Ratio] 30.52 kg/m2 Kendra Podlogar EXECUTIVE CYBER LEADER.BD SPECIAL EDUCATION TEACHER Work Phone: [facility] 11-29-2023 14:09-0400 Body weight 79.11 kg Kendra Podlogar EXECUTIVE CYBER LEADER.BD SPECIAL EDUCATION TEACHER Work Phone: [facility] 11-29-2023 14:09-0400 Diastolic blood pressure 76 mm[Hg] Kendra Podlogar EXECUTIVE CYBER LEADER.BD SPECIAL EDUCATION TEACHER Work Phone: [facility] 11-29-2023 14:09-0400 Heart rate 68 /min Kendra Podlogar EXECUTIVE CYBER LEADER.BD SPECIAL EDUCATION TEACHER Work Phone: [facility] 11-29-2023 14:09-0400 Respiratory rate 16 /min Kendra Podlogar EXECUTIVE CYBER LEADER.BD SPECIAL EDUCATION TEACHER Work Phone: [facility] 11-29-2023 14:09-0400 SaO2% (BldA) [Mass fraction] 98 % Kendra Podlogar EXECUTIVE CYBER LEADER.BD SPECIAL EDUCATION TEACHER Work Phone: [facility] 11-29-2023 14:09-0400 Systolic blood pressure 138 mm[Hg] Kendra Podlogar EXECUTIVE CYBER LEADER.BD SPECIAL EDUCATION TEACHER Work Phone: [facility] 11-12-2022 14:24-0400 Body height 161 cm Juno Higginbotham MD Work Phone: [facility] 11-12-2022 14:24-0400 Body weight 82.1 kg Juno Higginbotham MD Work Phone: [facility] 11-12-2022 14:24-0400 Diastolic blood pressure 76 mm[Hg] Juno Higginbotham MD Work Phone: [facility] 11-12-2022 14:24-0400 Heart rate 61 /min Juno Higginbotham MD Work Phone: [facility] 11-12-2022 14:24-0400 Respiratory rate 16 /min Juno Higginbotham MD Work Phone: [facility] 11-12-2022 14:24-0400 SaO2% (BldA) [Mass fraction] 96 % Juno Higginbotham MD Work Phone: [facility] 11-12-2022 14:24-0400 Systolic blood pressure 126 mm[Hg] Juno Higginbotham MD Work Phone: [facility] Encounters Encounter Date Encounter Type Care Provider Facility Start: 03-27-2025 End: 03-27-2025 ambulatory RON MCFARLANE Facility:[facility] Start: 03-26-2025 End: 03-26-2025 Office outpatient visit 25 minutes Richard Duong APRN.BD SPECIAL EDUCATION TEACHER Work Phone: [facility] Comment on above: Cellulitis of skin ( Primary Dx) Start: 03-26-2025 End: 03-26-2025 ambulatory JUNO HIGGINBOTHAM Facility:[facility] Start: 03-23-2025 End: 03-23-2025 Office outpatient new 30 minutes Og Thurston MD Work Phone: [facility] Comment on above: Cellulitis and absce ss of leg, except foot (Primary Dx) Start: 03-23-2025 End: 03-23-2025 ambulatory JUNO HIGGINBOTHAM Facility:[facility] Start: 02-28-2025 End: 02-28-2025 [facility] [employer] Start: 02-28-2025 End: 02-28-2025 Patient encounter procedure Omayra Kapoor MA [facility] [place] Comment on above: Population Health Na vigation Outreach ([facility] ) Start: 02-19-2025 End: 02-20-2025 Refill Juno Higginbotham MD Work Phone: [facility] [place] Comment on above: Refill Request Start: 02-04-2025 End: 02-05-2025 Refill Nai Mendoza APRN.BD SPECIAL EDUCATION TEACHER Work Phone: [facility] [place] Comment on above: Med Change Request Start: 02-03-2025 End: 02-05-2025 Refill Juno Higginbotham MD Work Phone: [facility] Comment on above: Refill Request Start: 01-11-2025 End: 01-11-2025 Telephone encounter Nai Mendoza APRN.BD SPECIAL EDUCATION TEACHER Work Phone: [facility] [place] Comment on above: Medication Request Start: 01-09-2025 End: 01-09-2025 ambulatory NAI MENDOZA Facility:[facility] Start: 01-09-2025 End: 01-09-2025 Patient encounter procedure Nai Mendoza APRN.BD SPECIAL EDUCATION TEACHER Work Phone: [facility] [place] Comment on above: Medicare annual well ness visit, subsequent (Primary Dx); Screening for depression; Encounter for immunization; Hyperlipidemia, mixed; Hypertension, essential; Advance directive discussed with patient; Anxiety Start: 12-25-2024 End: 12-26-2024 Refill Juno Higginbotham MD Work Phone: [facility] [place] Comment on above: Refill Request Start: 12-12-2024 End: 12-12-2024 ambulatory Nai Mendoza APRN.BD SPECIAL EDUCATION TEACHER Work Phone: [facility] [place] Comment on above: Anxiety Start: 12-11-2024 End: 12-12-2024 Follow-up encounter Nai Mendoza APRN.BD SPECIAL EDUCATION TEACHER Work Phone: [facility] [place] Start: 12-09-2024 ambulatory NAI MENDOZA Facilit y:[facility] Start: 12-09-2024 End: 12-09-2024 Subsequent hospital visit by physician [facility] (1.5t) [facility] Comment on above: Memory loss [R41.3] Start: 12-08-2024 End: 12-08-2024 ambulatory NAI MENDOZA Facility:[facility] Start: 12-07-2024 End: 12-07-2024 Patient encounter procedure Nai Mendoza APRN.BD SPECIAL EDUCATION TEACHER Work Phone: [facility] Comment on above: Memory loss (Primary Dx); Chronic insomnia; Claustrophobia; Hyperlipidemia, mixed; Medication management; Screening for diabetes mellitus Start: 12-07-2024 End: 12-08-2024 ambulatory Nai Mendoaz APRN.BD SPECIAL EDUCATION TEACHER Work Phone: [facility] Comment on above: Lisinoril Start: 11-28-2024 End: 11-28-2024 Telephone encounter Juno Higginbotham MD Work Phone: [facility] Comment on above: Lab Orders Start: 11-10-2024 End: 11-10-2024 Patient encounter procedure Kendra Murphy APRN.CNP Work Phone: [facility] Comment on above: Hypertension, essent ial (Primary Dx) Start: 11-10-2024 End: 11-10-2024 ambulatory KENDRA PODLOGAR Facility:[facility] Start: 11-06-2024 End: 11-06-2024 Patient encounter procedure Nai Mendoza APRN.BD SPECIAL EDUCATION TEACHER Work Phone: [facility] Comment on above: Chronic insomnia (Pr imary Dx); Elevated BP without diagnosis of hypertension Start: 11-06-2024 End: 11-06-2024 ambulatory NAI MENDOZA Facility:[facility] Start: 10-17-2024 End: 10-17-2024 Follow-up encounter Juno Higginbotham MD Work Phone: [facility] [place] Start: 10-17-2024 End: 10-17-2024 ambulatory JUNO HIGGINBOTHAM Facility:[facility] Start: 10-17-2024 End: 10-17-2024 Subsequent hospital visit by physician [facility] ([facility]) Work Phone: [facility] Comment on above: Localized enlarged l ymph nodes [R59.0] Start: 10-12-2024 End: 10-12-2024 Telephone encounter Juno Higginbotham MD Work Phone: [facility] Comment on above: Patient Update; Patti ent Request Start: 09-25-2024 End: 09-25-2024 Follow-up encounter Radha Mendoza LPN [facility] Start: 09-21-2024 End: 09-21-2024 ambulatory KENDRA PODLOGAR Facility:[facility] Start: 09-21-2024 End: 09-21-2024 Subsequent [facility] visit [facility] Work Phone: Radiology Comment on above: Neck swelling [R22.1 ] Start: 09-18-2024 End: 09-25-2024 Telephone encounter Kendra Murphy APRN.CNP Work Phone: [facility] [place] Comment on above: Patient Update; Orde rs (Ultrasound) Start: 08-29-2024 End: 08-29-2024 ambulatory KENDRA GUNTERLOGSELENE Facility:[facility] Start: 08-29-2024 End: 08-29-2024 Patient encounter procedure Kendra Murphy EXECUTIVE CYBER LEADER.BD SPECIAL EDUCATION TEACHER Work Phone: [facility] Comment on above: Neck swelling (Prima ry Dx) Start: 07-26-2024 End: 07-31-2024 ambulatory Juno Higginbotham MD Work Phone: [facility] [place] Start: 04-11-2024 End: 04-11-2024 Patient encounter procedure Juno Higginbotham MD Work Phone: [facility] Comment on above: Non-recurrent acute serous otitis media of right ear (Primary Dx) Start: 04-11-2024 End: 04-11-2024 ambulatory JUNO HIGGINBOTHAM Facility:[facility] Start: 12-07-2023 Telephone encounter Kendra ojeda EXECUTIVE CYBER LEADER.BD SPECIAL EDUCATION TEACHER Work Phone: [facility] Comment on above: Results Start: 11-29-2023 End: 11-29-2023 Patient encounter procedure Kendra Murphy EXECUTIVE CYBER LEADER.BD SPECIAL EDUCATION TEACHER Work Phone: [facility] Comment on above: Medicare annual well ness visit, subsequent (Primary Dx); Hyperlipidemia, mixed Start: 09-24-2023 Refill Juno Higginbotham MD Work Phone: [facility] [place] Comment on above: Refill Request Start: 06-15-2023 Telephone encounter John Higginbotham MD Work Phone: [facility] [place] Comment on above: Results Start: 06-11-2023 Documentation procedure Mammog mckay Coordinator [facility] Start: 06-11-2023 Letter encounter Mammography Coordinator [facility] Department Start: 06-10-2023 End: 06-10-2023 Subsequent hospital visit by physician Screen Mammo [facility] Comment on above: Screening mammogram for breast cancer [Z12.31] Start: 11-30-2022 Telephone encounter Kendra ojeda APRN.BD SPECIAL EDUCATION TEACHER Work Phone: [facility] [place] Comment on above: Results Start: 11-30-2022 End: 11-30-2022 Subsequent hospital visit by physician Bone Density [facility] Work Phone: Radiology Comment on above: Osteopenia, senile [ M85.80] Start: 11-17-2022 Refill Juno Higginbotham MD Work Phone: [facility] [place] Comment on above: Opened In Error Results Start: 11-12-2022 End: 11-12-2022 Patient encounter procedure Juno Higginbotham MD Work Phone: [facility] [place] Comment on above: Medicare annual well ness visit, subsequent (Primary Dx); Hyperlipidemia LDL goal <100; Osteopenia, senile; Asymptomatic menopausal state ; Screening mammogram for breast cancer; Class 1 obesity due to excess calories without serious comorbidity with body mass index (BMI) of 31.0 to 31.9 in adult; Encounter for immunization Start: 07-06-2022 Refill Juon Higginbotham MD Work Phone: [facility] Comment on above: Refill Request Start: 06-09-2022 Documentation procedure Mammog mckay Coordinator [facility] Start: 06-09-2022 Letter encounter Mammography Coordinator [facility] Start: 06-09-2022 Telephone encounter John Higginbotham MD Work Phone: [facility] [place] Comment on above: Results Start: 06-08-2022 End: 06-08-2022 Subsequent hospital visit by physician Screen Mammo [facility] Mammogram Comment on above: Screening mammogram, encounter for [Z12.31] Start: 02-20-2022 Telephone encounter Kendra ojeda APRN.BD SPECIAL EDUCATION TEACHER Work Phone: [facility] Comment on above: Orders Start: 01-10-2022 Refill Layne Seal [facility] Comment on above: Refill Request Start: 10-10-2020 End: 10-10-2020 Discharged [facility]Immun[facility] Procedures Date Procedure Procedure Detail Performing Clinician Start: 01-09-2025 Parkya-Fosubo COVI D-19 VACCINE AGE 12+ YR (COMIRNATY) Nai Mendoza EXECUTIVE CYBER LEADER.BD SPECIAL EDUCATION TEACHER Work Phone: Start: 01-09-2025 Adult depression screening assessment Nai Mendoza APRN.BD SPECIAL EDUCATION TEACHER Work Phone: Start: 12-09-2024 Mri brain brain stem w/o contrast material Nai Mendoza APRN.BD SPECIAL EDUCATION TEACHER Work Phone: Start: 12-08-2024 Lipid 1996 panel - S cristina or Plasma Mri (1.5t) Start: 12-07-2024 Urnls dip stick/tabl et rgnt auto w/o microscopy Nai Mendoza EXECUTIVE CYBER LEADER.BD SPECIAL EDUCATION TEACHER Work Phone: Start: 10-17-2024 Ct soft tissue neck w/o contrast material Juno Higginbotham MD Work Phone: Start: 12-06-2023 Lipid 1996 panel - S cristina or Plasma Kendra Murphy EXECUTIVE CYBER LEADER.BD SPECIAL EDUCATION TEACHER Work Phone: Start: 11-29-2023 Adult depression screening assessment Juno Higginbotham MD Work Phone: Start: 06-10-2023 Screening mammograph y bi 2-view breast inc cad Juno Higginbotham MD Work Phone: Start: 04-16-2023 Lipid 1996 panel - S cristina or Plasma [facility] Work Phone: Start: 11-30-2022 Dxa bone density michael dy 1/> sites axial skel Juno Higginbotham MD Work Phone: Start: 06-08-2022 YUDY SCREENING W LAURA Jemal Higginbotham MD Work Phone: Start: 06-08-2022 Mammography John Higginbotham MD Work Phone: Start: 11-10-2021 Adult depression screening assessment Layne Cedillo [facility] Start: 06-05-2021 Mammography Layne payne [facility] Start: 05-07-2015 Colonoscopy Layne payne [facility] Plan of Treatment Date Care Activity Detail Author Start: 12-08-2029 Lipid panel Lipid Screening [facility] Start: 12-05-2028 Lipid panel Lipid Screening [facility] Start: 04-16-2028 Lipid 1996 panel - S cristina or Plasma Lipid Screening [facility] Start: 04-16-2028 Lipid panel Lipid Screening [facility] Start: 12-09-2027 Diabetes Screening Diabetes Screenin g [facility] Start: 11-13-2027 LIPID SCREEN LIPID SCREEN [facility] Start: 12-05-2026 Diabetes Screening Diabetes Screenin g [facility] Start: 11-11-2026 LIPID SCREEN LIPID SCREEN [facility] Start: 01-09-2026 Annual PCP Team Animal Nutrition Teacher annika Disease Visit Annual PCP Team Chronic Disease Visit [facility] Start: 01-09-2026 Depression Screening Depression Scre ening [facility] Start: 01-09-2026 Medicare Annual Well ness Visit Medicare Annual Wellness Visit [facility] Start: 11-12-2025 DIABETES SCREEN DIABETES SCREEN [facility] Start: 11-12-2025 Diabetes Screening Diabetes Screenin g [facility] Start: 07-24-2025 Screening for malign ant neoplasm of breast Mammogram Screening [facility] Comment on above: Postponed from 06/10 (Postponed To Appropriate Date) Start: 05-07-2025 Colonoscopy COLONOSCOPY [facility] Start: 05-07-2025 COLORECTAL CANCER SCREENING COLORECTAL CANCER SCREENING [facility] Start: 05-07-2025 Screening for malign ant neoplasm of colon [facility] Start: 04-09-2025 Influenza vaccination Influenza Vacc ine (#1) [facility] Start: 03-27-2025 End: 03-27-2025 Patient encounter procedure 03/27/2025 1:15 PM EDT Office Visit General Surgery [address] [place], [place] [id number] Ron Mcfarlane MD [address] [place] [address] CONSULT: Abscess/cellulitis left leg; being tx with ATB. [facility] General Surgery Comment on above: CONSULT: Abscess/amarjit lulitis left leg; being tx with ATB. [facility] Start: 01-09-2025 End: 01-09-2025 Patient encounter procedure 01/09/2025 9:00 AM EDT Office Visit Family [facility] [address] [place], [place] [id number] Nai Mendoza APRN.BD SPECIAL EDUCATION TEACHER [address] [place], [place] [address] medicare wellness [facility] Comment on above: medicare wellness Start: 12-09-2024 Covid-19 Vaccine () Covid-19 Vaccine () [facility] Start: 12-09-2024 End: 12-09-2024 Patient encounter procedure 12/09/2024 11:00 AM EDT Appointment [facility] [address] [place], [place] [id number] Memory loss [R41.3] [facility] Comment on above: Memory loss [R41.3] Start: 12-09-2024 Subsequent hospital visit by physician 12/09/2024 11:00 AM EDT Hospital Encounter [facility] [address] [place] [address] Memory loss [R41.3] [facility] Comment on above: Memory loss [R41.3] Start: 12-08-2024 End: 12-08-2024 Patient encounter procedure 12/08/2024 10:00 AM EDT Office Visit [facility] [address] [place], [place] [address] Kendra Murphy APRN.BD SPECIAL EDUCATION TEACHER [address] [place], [place] [id number] BP check [facility] Comment on above: BP check Start: 12-07-2024 End: 12-07-2024 Patient encounter procedure 12/07/2024 4:20 PM EDT Office Visit [facility] [address] [place], [place] [id number] Nai Mendoza, EXECUTIVE CYBER LEADER.BD SPECIAL EDUCATION TEACHER [address] [place], [place] [id number] Medicare Wellness-memory concerns and anxiety may need to schedule back for wellness visit [facility] Comment on above: Medicare Wellness-pr jerson concerns and anxiety may need to schedule back for wellness visit Start: 12-07-2024 End: 03-08-2025 CBC W Auto Differential panel - Blood COMPLETE BLOOD COUNT AND DIFFERENTIAL Lab Routine Medication management Expected: 12/07/2024, Expires: 03/08/2025 [facility] Comment on above: Expected: 12/07/2024 , Expires: 03/08/2025 Start: 12-07-2024 End: 03-08-2025 Cobalamin (Vitamin B12) [Mass/volume] in Serum or Plasma VITAMIN B12 Lab Routine Memory loss Expected: 12/07/2024, Expires: 03/08/2025 [facility] Comment on above: Expected: 12/07/2024 , Expires: 03/08/2025 Start: 12-07-2024 End: 03-08-2025 Comprehensive metabolic 2000 panel - Serum or Plasma COMPREHENSIVE METABOLIC PANEL Lab Routine Medication management Expected: 12/07/2024, Expires: 03/08/2025 [facility] Comment on above: Expected: 12/07/2024 , Expires: 03/08/2025 Start: 12-07-2024 End: 03-08-2025 Folate [Mass/volume] in Serum or Plasma FOLATE, SERUM Lab Routine Memory loss Expected: 12/07/2024, Expires: 03/08/2025 [facility] Comment on above: Expected: 12/07/2024 , Expires: 03/08/2025 Start: 12-07-2024 End: 03-08-2025 Hemoglobin A1c in Blood HEMOGLOBIN A1C Lab Routine Screening for diabetes mellitus Expected: 12/07/2024, Expires: 03/08/2025 [facility] Comment on above: Expected: 12/07/2024 , Expires: 03/08/2025 Start: 12-07-2024 End: 03-08-2025 Lipid 1996 panel - Serum or Plasma LIPID PANEL, FASTING Lab Routine Hyperlipidemia, mixed Expected: 12/07/2024, Expires: 03/08/2025 [facility] Comment on above: Expected: 12/07/2024 , Expires: 03/08/2025 Start: 12-07-2024 End: 03-08-2025 SYPHILIS TREPONEMAL W/REFLEX SYPHILIS TREPONEMAL W/REFLEX Lab Routine Memory loss Expected: 12/07/2024, Expires: 03/08/2025 [facility] Work Phone: Comment on above: Expected: 12/07/2024 , Expires: 03/08/2025 Start: 12-07-2024 End: 03-08-2025 Thyrotropin [Units/volume] in Serum or Plasma THYROID STIMULATING HORMONE Lab Routine Memory loss Expected: 12/07/2024, Expires: 03/08/2025 [facility] Comment on above: Expected: 12/07/2024 , Expires: 03/08/2025 Start: 12-07-2024 End: 03-08-2025 Thyroxine (T4) free [Mass/volume] in Serum or Plasma T4 FREE/FREE THYROXINE Lab Routine Memory loss Expected: 12/07/2024, Expires: 03/08/2025 [facility] Comment on above: Expected: 12/07/2024 , Expires: 03/08/2025 Start: 12-07-2024 End: 03-08-2025 Triiodothyronine (T3) [Mass/volume] in Serum or Plasma T3 Lab Routine Memory loss Expected: 12/07/2024, Expires: 03/08/2025 [facility] Comment on above: Expected: 12/07/2024 , Expires: 03/08/2025 Start: 11-30-2024 End: 11-30-2024 Patient encounter procedure 11/30/2024 1:40 PM EDT Office Visit [facility] [address] [place] [address] Juno Higginbotham MD [address] [place] [address] Medicare Wellness [facility] Comment on above: Medicare Wellness Start: 11-28-2024 Depression Screening Depression Scre ening [facility] Start: 11-11-2024 DIABETES SCREEN DIABETES SCREEN [facility] Start: 10-17-2024 End: 10-17-2024 Patient encounter procedure 10/17/2024 8:20 AM EDT Appointment Cat Scan [address] [place] [address] CT NECK SOFT TISSUE WO IVCON [facility] Comment on above: CT NECK SOFT TISSUE WO IVCON Start: 08-09-2024 Advance Directive Discussion Advance Directive Discussion [facility] Start: 06-10-2024 Mammography Mammogram Screening [facility] Start: 06-10-2024 Screening for malign ant neoplasm of breast Mammogram Screening [facility] Start: 04-09-2024 Covid-19 Vaccine () Covid-19 Vaccine () [facility] Start: 04-09-2024 Covid-19 Vaccine () Covid-19 Vaccine () [facility] Start: 04-09-2024 Influenza vaccination Influenza Vacc ine (#1) [facility] Start: 11-29-2023 End: 02-28-2024 CBC W Auto Differential panel - Blood COMPLETE BLOOD COUNT AND DIFFERENTIAL Lab Routine Medicare annual wellness visit, subsequent Expected: 11/29/2023, Expires: 02/28/2024 [facility] Comment on above: Expected: 11/29/2023 , Expires: 02/28/2024 Start: 11-29-2023 End: 02-28-2024 Comprehensive metabolic 2000 panel - Serum or Plasma COMPREHENSIVE METABOLIC PANEL Lab Routine Medicare annual wellness visit, subsequent Hyperlipidemia, mixed Expected: 11/29/2023, Expires: 02/28/2024 [facility] Comment on above: Expected: 11/29/2023 , Expires: 02/28/2024 Start: 11-29-2023 End: 02-28-2024 Hemoglobin A1c in Blood HEMOGLOBIN A1C Lab Routine Medicare annual wellness visit, subsequent Expected: 11/29/2023, Expires: 02/28/2024 [facility] Work Phone: Comment on above: Expected: 11/29/2023 , Expires: 02/28/2024 Start: 11-29-2023 End: 02-28-2024 Lipid 1996 panel - Serum or Plasma LIPID PANEL BASIC Lab Routine Medicare annual wellness visit, subsequent Hyperlipidemia, mixed Expected: 11/29/2023, Expires: 02/28/2024 [facility] Comment on above: Expected: 11/29/2023 , Expires: 02/28/2024 Start: 11-13-2023 Urine microalbumin profile [facility] Comment on above: Postponed from 10/02 (Declined at this time) Start: 09-16-2023 Covid-19 Vaccine ( season) Covid-19 Vaccine ( season) [facility] Start: 08-09-2023 Advance Directive Discussion Advance Directive Discussion [facility] Start: 08-09-2023 Depression Assessment Depression Ass essment [facility] Start: 06-08-2023 Mammography MAMMOGRAM [facility] Start: 02-16-2023 End: 04-18-2023 Lipid 1996 panel - Serum or Plasma LIPID PANEL BASIC Lab Routine Hyperlipidemia, mixed Expected: 02/16/2023, Expires: 04/18/2023 [facility] Work Phone: Comment on above: Expected: 02/16/2023 , Expires: 04/18/2023 Start: 11-10-2022 Adult depression scr eening assessment DEPRESSION SCREENING [facility] Start: 06-05-2022 Mammography MAMMOGRAM [facility] Start: 05-23-2022 End: 03-22-2023 YUDY SCREENING W LAURA YUDY SCREENING W LAURA Radiology Routine Screening mammogram, encounter for Expected: 05/23/2022, Expires: 03/22/2023 [facility] Work Phone: Comment on above: Expected: 05/23/2022 , Expires: 03/22/2023 Start: 04-09-2022 Influenza vaccination INFLUENZA (#1) [facility] Start: 02-12-2022 PNEUMOCOCCAL: 65+ (2 - PPSV23 if available, else PCV20) PNEUMOCOCCAL: 65+ (2 - PPSV23 if available, else PCV20) [facility] Start: 02-12-2022 PNEUMOCOCCAL: 65+ (2 - PPSV23 or PCV20) PNEUMOCOCCAL: 65+ (2 - PPSV23 or PCV20) [facility] Start: 10-20-2021 COVID-19 VACCINE (4 - Booster for Pfizer series) COVID-19 VACCINE (4 - Booster for Pfizer series) [facility] Start: 08-09-2021 ADVANCE DIRECTIVE DISCUSSION ADVANCE DIRECTIVE DISCUSSION [facility] Start: 08-09-2021 DEPRESSION ASSESSMENT DEPRESSION ASS ESSMENT [facility] Start: 10-02-2020 Urine microalbumin profile [facility] Start: 03-23-2016 SHINGRIX VACCINE (2 of 3) GIBBONS GRIX VACCINE (2 of 3) [facility] Start: 2014 RSV Vaccine (1 - 1-d ose 60+ series) RSV Vaccine (1 - 1-dose 60+ series) [facility] Start: 1999 COLOGUARD (FIT-DNA) COLOGUARD (FIT-D NA) [facility] Start: [address] COLONOGRAPHY [facility] Start: 1999 FECAL OCCULT BLOOD FECAL OCCULT BLOO D [facility] Start: 1999 Screening for malign ant neoplasm of colon [facility] Start: 1999 SIGMOIDOSCOPY SIGMOIDOSCOPY [facility] Start: 1972 BP Controlled (<130/80) BP Controlle d (<130/80) [facility] BACH SCREENING TEST BACH SCREENI NG TEST Procedures Routine Memory loss Ordered: 12/07/2024 [facility] Comment on above: Ordered: 12/07/2024 Bacteria identified in Wound by Culture BACTERIAL CULTURE AND GRAM STAIN, ABSCESS AND WOUND (AEROBIC CULTURE) Microbiology Routine Cellulitis of skin 03/26/2025 1:39 PM EDT [facility] Work Phone: End: 11-11-2025 CT Neck WO contrast CT NECK SOFT TISSUE WO IVCON Radiology YASMIN Localized enlarged lymph nodes Neck swelling 1 Occurrences starting 10/12/2024 until 11/11/2025 [facility] Work Phone: Comment on above: 1 Occurrences starti ng 10/12/2024 until 11/11/2025 End: 08-25-2025 DBT Breast - bilateral screening YUDY SCREENING W LAURA Radiology Routine Encounter for screening mammogram for breast cancer 1 Occurrences starting 07/26/2024 until 08/25/2025 [facility] Work Phone: Comment on above: 1 Occurrences starti ng 07/26/2024 until 08/25/2025 End: 12-12-2023 DXA-AXIAL SKELETON DXA-AXIAL SKELETON Radiology Routine Osteopenia, senile Asymptomatic menopausal state 1 Occurrences starting 11/12/2022 until 12/12/2023 [facility] Work Phone: Comment on above: 1 Occurrences starti ng 11/12/2022 until 12/12/2023 End: 12-12-2023 YUDY SCREENING YUDY SCREENING Radiology Routine Screening mammogram for breast cancer 1 Occurrences starting 11/12/2022 until 12/12/2023 [facility] Work Phone: Comment on above: 1 Occurrences starti ng 11/12/2022 until 12/12/2023 End: 01-06-2026 MR Brain WO contrast MRI BRAIN WO IVCON Radiology STAT Memory loss 1 Occurrences starting 12/07/2024 until 01/06/2026 [facility] Comment on above: 1 Occurrences starti ng 12/07/2024 until 01/06/2026 US Head and neck sof t tissue US HEAD/NECK SOFT TISSUE OTHER Radiology Routine Neck swelling 09/21/2024 10:49 AM EST [facility] Work Phone: [facility] Immunizations Immunization Date Immunization Notes Care Provider Fa [facility] 01-09-2025 COVID-19 vaccine, ag e 12+ yr (Parkya-Fosubo COMNAT) Nai Mendoza APRN.BD SPECIAL EDUCATION TEACHER Work Phone: [facility] 06-11-2024 influenza virus vaccine, unspecified formulation Juno Higginbotham MD Work Phone: [facility] 05-16-2023 influenza virus vaccine, unspecified formulation Juno Higginbotham MD Work Phone: [facility] 11-12-2022 pneumococcal polysaccharide vaccine, 23 valent Juno Higginbotham MD Work Phone: [facility] 05-10-2022 influenza (HD-IIV4) vaccine, age 65+ yr, high dose, quadrivalent, PF (FLUZONE HIGH-DOSE) Juno Higginbotham MD Work Phone: [facility] Work Phone: 06-08-2021 zoster vaccine recombinant Juno Higginbotham MD Work Phone: [facility] Work Phone: 03-31-2021 influenza (HD-IIV4) vaccine, age 65+ yr, high dose, quadrivalent, PF (FLUZONE HIGH-DOSE) Juno Higginbotham MD Work Phone: [facility] Work Phone: 03-31-2021 zoster vaccine recombinant Juno Higginbotham MD Work Phone: [facility] Work Phone: 02-12-2021 pneumococcal conjuga te vaccine, 13 valent Layne Seal [facility] Work Phone: 10-31-2020 Covid (Pfizer) [facility] Work Phone: 10-10-2020 Covid (Pfizer) [facility] Work Phone: 06-11-2020 influenza (aIIV4) vaccine, age 65+ yr, quadrivalent, PF (FLUAD QUAD) Juno Higginbotham MD Work Phone: [facility] Work Phone: 05-21-2020 influenza, high dose seasonal, preservative-free Layne Seal [facility] 01-27-2016 zoster vaccine, live Layne Seal [facility] Work Phone: 10-02-2010 tetanus and diphther ia toxoids, adsorbed, preservative free, for adult use (2 Lf of tetanus toxoid and 2 Lf of diphtheria toxoid) Layne Seal [facility] 10-18-1997 diphtheria and tetan us toxoids, adsorbed for pediatric use Layne Seal [facility] Work Phone: Payers Date Payer Category Payer Private Health Insurance MMO MED ICARE SUPPLEMENT [id number] 2020 Unknown MMO MMO MEDICARE SUPPLEMENT [id number] 2020-Present [phone] [address] [place] [address] Indemnity [id number] 2020 Unknown MMO MMO MEDICARE SUPPLEMENT [id number] 2020-Present [phone] [address] [place] [address] Indemnity [id number] 2020 Unknown [id number] 2019 Medicare MEDICARE MEDICAR E A AND B [id number] 2019-Present [phone] [address] [address] [place] [address] Medicare [id number] 2019 Medicare [id number] 2019 Medicare [id number] Self-pay SELF PAY INSURANCE [id number] Unknown SELF PAY INSURANCE [id number] Social History Date Type Detail Facility Tobacco smoking stat [facility] Work Phone: Start: 1955 Sex Assigned At Female W [facility] Work Phone: Start: 06-17-2011 Tobacco smoking stat us AKIS Never smoked tobacco [facility] Start: 11-10-2021 End: 03-26-2025 Alcohol intake Current non-drinker of alcohol (finding) [facility] Start: 1955 Sex Assigned At Not on file [facility] Start: 06-17-2011 Tobacco use and exposure Smokeless tobacco non-user [facility] Start: 11-12-2022 End: 11-29-2023 History of Social function [facility] Work Phone: Start: 11-12-2022 End: 11-29-2023 Tobacco use panel [facility] Work Phone: Start: 07-10-2012 Adult Depression Screening Assessment 0 [facility] Work Phone: How often to you hav e a drink containing alcohol? Never [facility] Has the [employer] threatened to shut off services in your home in past 12Mo No [facility] Are you now , , , , never or living with a partner? [facility] Do you feel stress - tense, restless, nervous, or anxious, or unable to sleep at night because your mind is troubled all the time - these days [OSQ] Not at all [facility] (I/We) worried wheth er (my/our) food would run out before (I/we) got money to buy more. Never true [facility] Do you feel stress - tense, restless, nervous, or anxious, or unable to sleep at night because your mind is troubled all the time - these days [OSQ] Rather much [facility] Goals Date Patient Goal Desired Activity /State Functional Status Date Assessment Result Facility 12-17-2014 Are you deaf, or do you have serious difficulty hearing No 12/17/2014 10:37 AM LUCILLET Mikayla Juarez MA No [facility] 12-17-2014 Are you blind, or do you have serious difficulty seeing, even when wearing glasses No 12/17/2014 10:37 AM EDT Mikayla Juarez MA No [facility] 12-17-2014 Do you have serious difficulty walking or climbing stairs No 12/17/2014 10:37 AM EDT [facility] [place] No [facility] 12-17-2014 Do you have difficul ty dressing or bathing No 12/17/2014 10:37 AM EDT [place] No [facility] 12-17-2014 Because of a physica l, mental, or emotional condition, do you have difficulty doing errands alone such as visiting a physician's office or shopping No 12/17/2014 10:37 AM EDT [facility] Mental Status Date Assessment Result Facility 12-17-2014 Because of a physica l, mental, or emotional condition, do you have serious difficulty concentrating, remembering, or making decisions No 12/17/2014 10:37 AM EDT [facility] Clinical Notes 06-07-2012 to 03-26-2025 Richard Duong APRN.BD SPECIAL EDUCATION TEACHER - 03/26/2025 12:50 PM EDTPatient InstructionsOg Thurston MD - 03/23/2025 9:29 AM Omayra Lacy MA - 02/28/2025 2:33 PM EDTPatient Instructions Note Date & Type Note Facility 03-26-2025 Note HNO ID: [id number] Author: RICHARD DUONG APRN.GRETA Service: ? Author Type: Nurse Practitioner Type: Progress Notes Filed: 03/26/2025 13:22 Note Text: [facility]RG[facility] CARE SLICK Casas is a 69 year old female. Patient presents with: Rash: Possible cellulitis on ROSAURA legs x 3 days HPI Nontoxic-appearing 69-year-old female presents urgent care chief complaint cellulitis/abscess. Duration of symptoms 1 week. Associated symptoms pain some drainage from wound. Was seen here on 815. Placed on Bactrim. has developed a new abscess on her other leg. Presents today for evaluation. States redness may have worsened slightly. Overall feels well. No fevers. No nausea vomiting. Past medical history prescription medications allergies reviewed Review of Systems Constitutional: Negative for chills, diaphoresis, fatigue and fever. HENT: Negative for congestion, drooling, ear discharge, ear pain, rhinorrhea, sinus pressure, sinus pain, sneezing, sore throat and trouble swallowing. Eyes: Negative for pain, discharge, redness, itching and visual disturbance. Respiratory: Negative for cough, chest tightness, shortness of breath and wheezing. Cardiovascular: Negative for chest pain. Gastrointestinal: Negative for abdominal distention, abdominal pain, blood in stool, constipation, diarrhea, nausea and vomiting. Genitourinary: Negative for difficulty urinating and dysuria. Musculoskeletal: Negative for arthralgias, joint swelling, neck pain and neck stiffness. Skin: Negative for rash. Neurological: Negative for dizziness, weakness, numbness and headaches. Objective BP 130/64 Pulse 70 Temp 37.2 ?C (99 ?F) Resp 21 Wt 75 kg (165 lb 5.5 oz) LMP 02/13/2005 SpO2 94% BMI 28.93 kg/m? Physical Exam Constitutional: Appearance: Normal appearance. She is normal weight. HENT: Head: Normocephalic. Eyes: Conjunctiva/sclera: Conjunctivae normal. Cardiovascular: Rate and Rhythm: Normal rate. Pulmonary: Effort: Pulmonary effort is normal. Musculoskeletal: Cervical back: Normal range of motion. Skin: Findings: No rash. Comments: Approximately a 3 cm x 3 cm area of induration with a small hole in the center noted. Some bloody discharge noted. Surrounding erythema noted. Erythematous approximately 5 cm x 5 cm. A small 5 mm x 5 mm area of induration noted left leg. No inguinal adenopathy no remote redness. Neurological: General: No focal deficit present. Mental Status: She is alert and oriented to person, place, and time. Mental status is at baseline. {ASSESSMENT/PLAN: 1. Cellulitis of skin - ICD9: 682.9, ICD10: L03.90 - CONSULT TO GENERAL SURGERY Wound culture sent. Addition of Keflex due to new area of cellulitis. Follow-up with GEN surge reevaluation. Patient was educated on supportive therapies. Patient will follow up with primary care provider as needed. Patient was instructed to immediately proceed to emergency room for any new, worsening, or symptoms lasting longer than anticipated. The patient's clinical presentation is otherwise unremarkable at this time. Based on exam and clinical finding, the patient is stable for discharge. Plan of care was discussed with patient. Patient verbalizes understanding and agrees to plan of care. This note was generated using [employer] software. It may contain errors in wording, punctuation, or spelling. Richard Duong APRN.[facility] Procedures [facility] 03-26-2025 History of Present illness Narrative Images from the original note were not included. URGENT CARE SLICKMILI Casas is a 69 year old female. Patient presents with: Rash: Possible cellulitis on ROSAURA legs x 3 days HPI Nontoxic-appearing 69-year-old female presents urgent care chief complaint cellulitis/abscess. Duration of symptoms 1 week. Associated symptoms pain some drainage from wound. Was seen here on 815. Placed on Bactrim. States has developed a new abscess on her other leg. Presents today for evaluation. States redness may have worsened slightly. Overall feels well. No fevers. No nausea vomiting. Past medical history prescription medications allergies reviewed Review of Systems Constitutional: Negative for chills, diaphoresis, fatigue and fever. HENT: Negative for congestion, drooling, ear discharge, ear pain, rhinorrhea, sinus pressure, sinus pain, sneezing, sore throat and trouble swallowing. Eyes: Negative for pain, discharge, redness, itching and visual disturbance. Respiratory: Negative for cough, chest tightness, shortness of breath and wheezing. Cardiovascular: Negative for chest pain. Gastrointestinal: Negative for abdominal distention, abdominal pain, blood in stool, constipation, diarrhea, nausea and vomiting. Genitourinary: Negative for difficulty urinating and dysuria. Musculoskeletal: Negative for arthralgias, joint swelling, neck pain and neck stiffness. Skin: Negative for rash. Neurological: Negative for dizziness, weakness, numbness and headaches. Objective BP 130/64 Pulse 70 Temp 37.2 C (99 F) Resp 21 Wt 75 kg (165 lb 5.5 oz) LMP 02/13/2005 SpO2 94% BMI 28.93 kg/m Physical Exam Constitutional: Appearance: Normal appearance. She is normal weight. HENT: Head: Normocephalic. Eyes: Conjunctiva/sclera: Conjunctivae normal. Cardiovascular: Rate and Rhythm: Normal rate. Pulmonary: Effort: Pulmonary effort is normal. Musculoskeletal: Cervical back: Normal range of motion. Skin: Findings: No rash. Comments: Approximately a 3 cm x 3 cm area of induration with a small hole in the center noted. Some bloody discharge noted. Surrounding erythema noted. Erythematous approximately 5 cm x 5 cm. A small 5 mm x 5 mm area of induration noted left leg. No inguinal adenopathy no remote redness. Neurological: General: No focal deficit present. Mental Status: She is alert and oriented to person, place, and time. Mental status is at baseline. {ASSESSMENT/PLAN: 1. Cellulitis of skin - ICD9: 682.9, ICD10: L03.90 - CONSULT TO GENERAL SURGERY Wound culture sent. Addition of Keflex due to new area of cellulitis. Follow-up with GEN surge reevaluation. Patient was educated on supportive therapies. Patient will follow up with primary care provider as needed. Patient was instructed to immediately proceed to emergency room for any new, worsening, or symptoms lasting longer than anticipated. The patient's clinical presentation is otherwise unremarkable at this time. Based on exam and clinical finding, the patient is stable for discharge. Plan of care was discussed with patient. Patient verbalizes understanding and agrees to plan of care. This note was generated using [employer] software. It may contain errors in wording, punctuation, or spelling. Richard Duong APRN.BD SPECIAL EDUCATION TEACHER MDM Procedures documented in this encounter [facility] 03-23-2025 Instructions Og Thurston MD - 03/23/2025 9:49 AM EDT Cellulitis You were diagnosed with cellulitis. This is a bacterial infection of the skin. Symptoms are usually redness, swelling, and warmth in the affected area. Some people get a fever (temperature higher than 100.4 F / 38 C) with this infection. Keep the extremity (arm or leg) above your heart level if possible. Cellulitis is treated with antibiotics. It is also treated by keeping the affected area elevated (up). Sometimes, antibiotics are given intravenously (IV). Other infections can be treated with oral (by mouth) medicines. Redness, swelling, warmth, and fever should start to get better after 2-3 days of treatment. Come back here or go to the nearest Emergency Department or your primary doctor for a re-check as directed. YOU SHOULD SEEK MEDICAL ATTENTION IMMEDIATELY, EITHER HERE OR AT THE NEAREST EMERGENCY DEPARTMENT, IF ANY OF THE FOLLOWING OCCURS: Redness spreads even with treatment. You can daniel the infection area with a pen. This will help watch for improvement or spreading. Fever (temperature higher than 100.4 F / 38 C) doesn't go away or gets worse after 2-3 days of antibiotics. Unusual or increasing pain in the infected area. Lightheadedness. Feeling sicker at any time or not getting better as expected. documented in this encounter [facility] 03-23-2025 Note HNO ID: [id number] Author: OG THURSTON MD Service: ? Author Type: Physician Type: Progress Notes Filed: 03/23/2025 09:42 Note Text: URG[facility] CARE SLICK Casas is a 69 year old female. Patient presents with: Derm Problem: Cyst L upper thigh x3 days 69-year-old female noticed a bump on her left thigh her daughter squeezed and got some pus out she is here because there is little surrounding redness She denies fever chills nausea vomiting chest pain or shortness of breath Review of Systems Constitutional: Negative for fever. Respiratory: Negative for shortness of breath. Cardiovascular: Negative for chest pain. Gastrointestinal: Negative for abdominal pain. Skin: Positive for rash. Objective BP 154/76 Pulse 68 Temp 36.7 ?C (98.1 ?F) Resp 18 Wt 74.7 kg (164 lb 10.9 oz) LMP 02/13/2005 SpO2 97% BMI 28.82 kg/m? Physical Exam Skin: Comments: Left thigh upper skin a 2 cm area of swelling with some bloody purulent drainage this was squeezed and a fair amount of blood came out decreasing the size to almost nothing with a small amount of pus there was some surrounding erythema on the outer portion of it about 2 cm away from the wound {ASSESSMENT/PLAN: 1. Cellulitis and abscess of leg, except foot - ICD9: 682.6, ICD10: L03.119, L02.419 - Begin treatment with Trimethoprim-sulfamethozazole (Bactrim) 2 DS PO BID - Patient's abscess is already draining upon squeezing it there was small amount of hematoma with some purulent material decompressed the abscess put a Band-Aid over it I would recommend that she take Bactrim for 1 week follow-up with the PCP - SULFAMETHOXAZOLE 800 MG-TRIMETHOPRIM 160 MG TABLET Og Thurston MD Differential Diagnoses - left thigh abscess is more likely for the following reason(s): suggested by HANDP - cellulitis is more likely for the following reason(s): suggested by HANDP Procedures [facility] 03-23-2025 History of Present illness Narrative [facility] Bismark Casas is a 69 year old female. Patient presents with: Derm Problem: Cyst L upper thigh x3 days 69-year-old female noticed a bump on her left thigh her daughter squeezed and got some pus out she is here because there is little surrounding redness She denies fever chills nausea vomiting chest pain or shortness of breath Review of Systems Constitutional: Negative for fever. Respiratory: Negative for shortness of breath. Cardiovascular: Negative for chest pain. Gastrointestinal: Negative for abdominal pain. Skin: Positive for rash. Objective BP 154/76 Pulse 68 Temp 36.7 C (98.1 F) Resp 18 Wt 74.7 kg (164 lb 10.9 oz) LMP 02/13/2005 SpO2 97% BMI 28.82 kg/m Physical Exam Skin: Comments: Left thigh upper skin a 2 cm area of swelling with some bloody purulent drainage this was squeezed and a fair amount of blood came out decreasing the size to almost nothing with a small amount of pus there was some surrounding erythema on the outer portion of it about 2 cm away from the wound {ASSESSMENT/PLAN: 1. Cellulitis and abscess of leg, except foot - ICD9: 682.6, ICD10: L03.119, L02.419 - Begin treatment with Trimethoprim-sulfamethozazole (Bactrim) 2 DS PO BID - Patient's abscess is already draining upon squeezing it there was small amount of hematoma with some purulent material decompressed the abscess put a Band-Aid over it I would recommend that she take Bactrim for 1 week follow-up with the PCP - SULFAMETHOXAZOLE 800 MG-TRIMETHOPRIM 160 MG TABLET Og Thurston MD Differential Diagnoses - left thigh abscess is more likely for the following reason(s): suggested by H&P - cellulitis is more likely for the following reason(s): suggested by H&P Procedures documented in this encounter [facility] 02-28-2025 Note HNO ID: [id number] Author: OMAYRA KAPOOR MA Service: ? Author Type: Clothing Consultant Type: Progress Notes Filed: 02/28/2025 14:33 Note Text: POPULATION HEALTH NAVIGATION OUTREACH Action/FYI Chart review only Reason for Outreach Care Gap/HCC or Scheduling Wellness Visits Care Gaps due: N/A Patient Contacted: Unable or unnecessary to reach patient: Chart Review only Navigation Signature: Omayra Kapoor MA February 28, 2025 2:33 PM [facility] 02-28-2025 History of Present illness Narrative POPULATION HEALTH NAVIGATION OUTREACH Action/FYI Chart review only Reason for Outreach Care Gap/HCC or Scheduling Wellness Visits Care Gaps due: N/A Patient Contacted: Unable or unnecessary to reach patient: Chart Review only Navigation Signature: Omayra Kapoor MA February 28, 2025 2:33 PM documented in this encounter [facility] 02-28-2025 Note Patient Outreach (NE TNAV) TYLER CASAS ([id number]) 1955 F Date Time Provider Department 02/28/25 OMAYRA KAPOOR During your visit today, we recorded the following information about you: Omayra Kapoor MA 02/28/2025 2:33 PM Signed POPULATION HEALTH NAVIGATION OUTREACH Action/FYI Chart review only Reason for Outreach Care Gap/HCC or Scheduling Wellness Visits Care Gaps due: N/A Patient Contacted: Unable or unnecessary to reach patient: Chart Review only Navigation Signature: Omayra Kapoor MA February 28, 2025 2:33 PM Allergies As of Date: 02/28/2025 Noted Allergy Reaction CLEOCIN (CLINDAMYCIN HCL) 08/19/2005 TETRACYCLINE 08/19/2005 Date Reviewed: 01/09/2025 Reviewed by: Suri Dumont MA - Fully Assessed Reason for Visit: Population Health Navigation Outreach [3910] Cmt: Slick/Keyannancmargie/ACO Prescriptions as of 02/28/2025 - QUEtiapine (SEROQUEL) 25 mg tablet Take 1/2 tablet daily - sertraline (ZOLOFT) 50 mg tablet TAKE 1 TABLET BY MOUTH EVERY DAY - simvastatin (ZOCOR) 40 mg tablet Take 1 tablet by mouth daily at bedtime. - lisinopril (ZESTRIL) 10 mg tablet Take 1 tablet by mouth once daily. - vit C,T-Wg-eisnj-lutein-zeaxan (PRESERVISION AREDS-2) 250-90-40-1 mg Take 1 capsule by mouth twice daily with meals. - calcium carbonate 600 mg-cholecalciferol 400 units (CALCIUM 600 + D) 600 mg(1,500mg) -400 unit tab Take 1 tablet by mouth twice daily. - multivitamins(MULTIPLE VITAMIN TAB) Take one(1) tablet daily. Problem List As Of Date 02/28/2025 Noted Resolved Umbilical hernia without mention of obstruction*07/17/2010 12/06/2014 Fracture of fibula, distal, right, closed [S82.*06/07/2012 12/06/2014 Arthritis of knee, left [M17.12] 12/06/2014 Anxiety [F41.9] 12/06/2014 Special screening for malignant neoplasms, colo*03/26/2015 Hyperlipidemia LDL goal <100 [E78.5] 03/10/2017 Family history of breast cancer in sister [Z80.*03/10/2017 Family history of heart disease [Z82.49] 03/10/2017 Obesity [E66.9] 11/12/2022 Encounter Status:Closed by OMAYRA KAPOOR on 02/28/25 [facility] 02-19-2025 Telephone encounter Note Pt's DIL Tji called and is notified of providers message. She reports Pt is only taking 1/2 a tablet. Rowena Washington RN [facility] 02-19-2025 Miscellaneous Notes Pt's DIL Tji called and is notified of providers message. She reports Pt is only taking 1/2 a tablet. Rowena Washington RN Is patient taking 1/2 tablet of the Seroquel- it looks like she just had a visit with Nai and she decreased it. Kendra Murphy APRN.CNP The patient has been identified by name and date of : Yes Caregiver verified no other encounters exist for this prescription request: Yes Caregiver confirmed with patient/requestor that no other refills are due, in the near future, with this provider at this time: Yes The last office visit in the department: 01/09/2025 Does the patient have a future office visit with this provider/department: No Requested Prescriptions Pending Prescriptions Disp Refills QUEtiapine (SEROQUEL) 25 mg tablet 30 tablet 2 Sig: Take 1 tablet by mouth daily at bedtime. Sofiya Hyatt RN February 19, 2025 1:36 PM documented in this encounter [facility] 02-19-2025 Telephone encounter Note Is patient taking 1/2 tablet of the Seroquel- it looks like she just had a visit with Nai and she decreased it. Kendra Murphy APRN.CNP [facility] 02-19-2025 Telephone encounter Note The patient has been identified by name and date of : Yes Caregiver verified no other encounters exist for this prescription request: Yes Caregiver confirmed with patient/requestor that no other refills are due, in the near future, with this provider at this time: Yes The last office visit in the department: 01/09/2025 Does the patient have a future office visit with this provider/department: No Requested Prescriptions Pending Prescriptions Disp Refills QUEtiapine (SEROQUEL) 25 mg tablet 30 tablet 2 Sig: Take 1 tablet by mouth daily at bedtime. Sofiya Hyatt RN February 19, 2025 1:36 PM [facility] 02-05-2025 Telephone encounter Note Rx was sent to [facility] pharmacy today. [facility] 02-05-2025 Miscellaneous Notes Rx was sent to [facility] pharmacy today. Prescription Refill Information The patient has been identified by name and date of : Yes Caregiver verified no other encounters exist for this prescription request: Yes Caregiver confirmed with patient/requestor that no other refills are due, in the near future, with this provider at this time: Yes The last office visit in the department: 01-09-25 Does the patient have a future office visit with this provider/department: Yes Requested Prescriptions Pending Prescriptions Disp Refills sertraline (ZOLOFT) 50 mg tablet 60 tablet 0 Sig: Take 1 tablet by mouth once daily. Sera Velásquez February 03, 2025 9:19 AM documented in this encounter [facility] 02-05-2025 Telephone encounter Note Pharmacy is requesting 90 day supply Prescription Refill Information The patient has been identified by name and date of : Yes Caregiver verified no other encounters exist for this prescription request: Yes Caregiver confirmed with patient/requestor that no other refills are due, in the near future, with this provider at this time: Yes The last office visit in the department: 01/09/25 Does the patient have a future office visit with this provider/department: No Requested Prescriptions Pending Prescriptions Disp Refills sertraline (ZOLOFT) 50 mg tablet [Pharmacy Med Name: SERTRALINE HCL 50 MG TABLET] 90 tablet 1 Sig: TAKE 1 TABLET BY MOUTH EVERY DAY Renetta Torrez LPN February 05, 2025 11:21 AM [facility] 02-05-2025 Miscellaneous Notes Pharmacy is requesting 90 day supply Prescription Refill Information The patient has been identified by name and date of : Yes Caregiver verified no other encounters exist for this prescription request: Yes Caregiver confirmed with patient/requestor that no other refills are due, in the near future, with this provider at this time: Yes The last office visit in the department: 01/09/25 Does the patient have a future office visit with this provider/department: No Requested Prescriptions Pending Prescriptions Disp Refills sertraline (ZOLOFT) 50 mg tablet [Pharmacy Med Name: SERTRALINE HCL 50 MG TABLET] 90 tablet 1 Sig: TAKE 1 TABLET BY MOUTH EVERY DAY Renetta Torrez LPN February 05, 2025 11:21 AM documented in this encounter [facility] 02-03-2025 Telephone encounter Note Prescription Refill Information The patient has been identified by name and date of : Yes Caregiver verified no other encounters exist for this prescription request: Yes Caregiver confirmed with patient/requestor that no other refills are due, in the near future, with this provider at this time: Yes The last office visit in the department: 01-09-25 Does the patient have a future office visit with this provider/department: Yes Requested Prescriptions Pending Prescriptions Disp Refills sertraline (ZOLOFT) 50 mg tablet 60 tablet 0 Sig: Take 1 tablet by mouth once daily. Sera Velásquez February 03, 2025 9:19 AM [facility] 01-11-2025 Telephone encounter Note Patient calling she was in the office on 01/09/2025 for an appt, her right ear was red then. Patient said now her right ear hurts, no drainage, no fever, no other symptoms. Patient asking for an antibiotic rx to be sent to [facility] pharmacy please. Please advise [facility] 01-11-2025 Miscellaneous Notes Patient calling she was in the office on 01/09/2025 for an appt, her right ear was red then. Patient said now her right ear hurts, no drainage, no fever, no other symptoms. Patient asking for an antibiotic rx to be sent to [facility] pharmacy please. Please advise documented in this encounter [facility] 01-09-2025 Note HNO ID: [id number] Author: NAI MENDOZA APRN.GRETA Service: ? Author Type: Nurse Practitioner Type: Progress Notes Filed: 01/09/2025 10:10 Note Text: Tyler Casas is a 69 year old female here for a Medicare wellness visit. Medicare Health Risk Assessment General Health Very good Exercise: Minutes/Day 30 min Exercise: Days/Week 3 days Alcohol: Daily Use Never Alcohol: Drinks/Day Patient does not drink Alcohol: 6 or more drinks Never Feel off balance No Concerns: Teeth/Dentures No Concerns: Sexual function No Troubled by feelings Anxious Frequency: Eating healthy diet Nearly every day ADLs requiring help None of the above Safety precautions in home/vehicle Yes Smoke, vape, chews tobacco No Difficulty hearing No Difficulty seeing No Current Providers Specialists: I have reviewed specialist-related care of the patient in the medical record. Current care team: Patient Care Team: Juno Higginbotham MD as PCP - General (Family Medicine) Podlogar, ROSA Gardner.BD SPECIAL EDUCATION TEACHER as Systems Applications Programming Lead (Family Medicine) Medical/Family history review Reviewed and updated problem list, medical/surgical/family/social history, medications, and allergies. Opioid use review Opioid Medications (last 90 days) No data to display Anxiety/Depression screening KRISTIE-7 Score: 0 . Recommendation: no further intervention at this time Cognitive screening Cognitive screening reviewed and No further action needed (score 3-5). Functional Observation Was the patient's Timed Up AND Go test unsteady or >= 12 seconds? No Advance Care Planning Surrogate decision maker and/or advance care plan documented Measurements BP 138/75 Pulse (!) 58 Wt 72 kg (158 lb 11.7 oz) LMP 02/13/2005 BMI 27.78 kg/m? Vision Screening: Follows with optometry/ophthalmology Assessment/Plan Medicare annual wellness visit, subsequent (Z00.00) - Counseled on healthy diet and regular exercise - Fall avoidance information provided - Personalized prevention plan provided Chief Complaint Patient presents with: Medicare Wellness Exam HPI Tyler Casas is a 69 year old female who presents here today for Medicare Annual Visit. Denies any complaints at this time. Would like longer refill of Lisinopril. Denies ay CP, SOB, edema, palpitations. Cholesterol well controlled-has only been taking 40mg of Simvastatin. Anxiety- well controlled. Seroquel has helped with sleep and anxiety. Has been waking up groggy though. Has been sleeping 8-10 hours without waking up. Diet well controlled. Denies any caffeine intake. Past medical history, appointments, medications, allergies reviewed. Previous Medical History PAST MEDICAL HISTORY Diagnosis Date Essential hypertension 11/10/2024 Obesity Other and unspecified hyperlipidemia Snoring Previous Surgical History PAST SURGICAL HISTORY Procedure Laterality Date DELIVERY ONLY , low cervical COLONOSCOPY FLX DX W/COLLJ SPEC WHEN PFRMD 04/10/05 Colonoscopy COLONOSCOPY FLX DX W/COLLJ SPEC WHEN PFRMD 05-07-15 TONSILLECTOMY AND ADENOIDECTOMY T/A (under age 11 years) Family History FAMILY HISTORY Problem Relation Age of Onset Hypertension Mother Coronary Artery Disease Mother Stroke Mother Alzheimer's Disease Father Coronary Artery Disease Father Hypertension Father Stroke Father Diabetes Sister Hypertension Sister Breast Cancer Sister 59 Colon Cancer Maternal Grandfather Patient Allergies ALLERGIES Allergen Reactions Cleocin [Clindamyci* Tetracycline Current Medications Current Outpatient Medications on File Prior to Visit Medication Sig QUEtiapine (SEROQUEL) 25 mg tablet Take 1 tablet by mouth daily at bedtime. sertraline (ZOLOFT) 50 mg tablet Take 1 tablet by mouth once daily. lisinopril (ZESTRIL) 10 mg tablet Take 1 tablet by mouth once daily. simvastatin (ZOCOR) 80 mg tablet Take 1 tablet by mouth daily at bedtime. vit C,Q-Qb-xcajz-lutein-zeaxan (PRESERVISION AREDS-2) 250-90-40-1 mg Take 1 capsule by mouth twice daily with meals. calcium carbonate 600 mg-cholecalciferol 400 units (CALCIUM 600 + D) 600 mg(1,500mg) -400 unit tab Take 1 tablet by mouth twice daily. multivitamins(MULTIPLE VITAMIN TAB) Take one(1) tablet daily. No current facility-administered medications on file prior to visit. Social History Social History Tobacco Use Smoking status: Never Smokeless tobacco: Never Vaping Use Vaping status: Never Used Substance Use Topics Alcohol use: No Drug use: No Review of Symptoms REVIEW OF SYSTEMS GENERAL: No weight loss, malaise or fevers HEENT: Negative for frequent or significant headaches, No changes in hearing or vision, no nose bleeds or other nasal problems NECK: Negative for lumps, goiter, pain and significant neck swelling RESPIRATORY: Negative for cough, hemoptysis, wheezing, COPD, dyspnea or shortness of breath CARDIOVASCULAR: Negative for chest pain, l (more content not included)... [facility] 01-09-2025 History of Present illness Narrative Images from the original note were not included. Tyler Casas is a 69 year old female here for a Medicare wellness visit. Medicare Health Risk Assessment General Health Very good Exercise: Minutes/Day 30 min Exercise: Days/Week 3 days Alcohol: Daily Use Never Alcohol: Drinks/Day Patient does not drink Alcohol: 6 or more drinks Never Feel off balance No Concerns: Teeth/Dentures No Concerns: Sexual function No Troubled by feelings Anxious Frequency: Eating healthy diet Nearly every day ADLs requiring help None of the above Safety precautions in home/vehicle Yes Smoke, vape, chews tobacco No Difficulty hearing No Difficulty seeing No Current Providers Specialists: I have reviewed specialist-related care of the patient in the medical record. Current care team: Patient Care Team: Juno Higginbotham MD as PCP - General (Family Medicine) Podlogar, ROSA Gardner.BD SPECIAL EDUCATION TEACHER as Systems Applications Programming Lead (Family Medicine) Medical/Family history review Reviewed and updated problem list, medical/surgical/family/social history, medications, and allergies. Opioid use review Opioid Medications (last 90 days) No data to display Anxiety/Depression screening KRISTIE-7 Score: 0 . Recommendation: no further intervention at this time Cognitive screening Cognitive screening reviewed and No further action needed (score 3-5). Functional Observation Was the patient's Timed Up & Go test unsteady or >= 12 seconds? No Advance Care Planning Surrogate decision maker and/or advance care plan documented Measurements BP 138/75 Pulse (!) 58 Wt 72 kg (158 lb 11.7 oz) LMP 02/13/2005 BMI 27.78 kg/m Vision Screening: Follows with optometry/ophthalmology Assessment/Plan Medicare annual wellness visit, subsequent (Z00.00) - Counseled on healthy diet and regular exercise - Fall avoidance information provided - Personalized prevention plan provided Chief Complaint Patient presents with: Medicare Wellness Exam HPI Tyler Casas is a 69 year old female who presents here today for Medicare Annual Visit. Denies any complaints at this time. Would like longer refill of Lisinopril. Denies ay CP, SOB, edema, palpitations. Cholesterol well controlled-has only been taking 40mg of Simvastatin. Anxiety- well controlled. Seroquel has helped with sleep and anxiety. Has been waking up groggy though. Has been sleeping 8-10 hours without waking up. Diet well controlled. Denies any caffeine intake. Past medical history, appointments, medications, allergies reviewed. Previous Medical History PAST MEDICAL HISTORY Diagnosis Date Essential hypertension 11/10/2024 Obesity Other and unspecified hyperlipidemia Snoring Previous Surgical History PAST SURGICAL HISTORY Procedure Laterality Date DELIVERY ONLY , low cervical COLONOSCOPY FLX DX W/COLLJ SPEC WHEN PFRMD 04/10/05 Colonoscopy COLONOSCOPY FLX DX W/COLLJ SPEC WHEN PFRMD 05-07-15 TONSILLECTOMY & ADENOIDECTOMY <AGE 12 T/A (under age 11 years) Family History FAMILY HISTORY Problem Relation Age of Onset Hypertension Mother Coronary Artery Disease Mother Stroke Mother Alzheimer's Disease Father Coronary Artery Disease Father Hypertension Father Stroke Father Diabetes Sister Hypertension Sister Breast Cancer Sister 59 Colon Cancer Maternal Grandfather Patient Allergies ALLERGIES Allergen Reactions Cleocin [Clindamyci* Tetracycline Current Medications Current Outpatient Medications on File Prior to Visit Medication Sig QUEtiapine (SEROQUEL) 25 mg tablet Take 1 tablet by mouth daily at bedtime. sertraline (ZOLOFT) 50 mg tablet Take 1 tablet by mouth once daily. lisinopril (ZESTRIL) 10 mg tablet Take 1 tablet by mouth once daily. simvastatin (ZOCOR) 80 mg tablet Take 1 tablet by mouth daily at bedtime. vit C,G-Gc-lyhgf-lutein-zeaxan (PRESERVISION AREDS-2) 250-90-40-1 mg Take 1 capsule by mouth twice daily with meals. calcium carbonate 600 mg-cholecalciferol 400 units (CALCIUM 600 + D) 600 mg(1,500mg) -400 unit tab Take 1 tablet by mouth twice daily. multivitamins(MULTIPLE VITAMIN TAB) Take one(1) tablet daily. No current facility-administered medications on file prior to visit. Social History Social History Tobacco Use Smoking status: Never Smokeless tobacco: Never Vaping Use Vaping status: Never Used Substance Use Topics Alcohol use: No Drug use: No Review of Symptoms REVIEW OF SYSTEMS GENERAL: No weight loss, malaise or fevers HEENT: Negative for frequent or significant headaches, No changes in hearing or vision, no nose bleeds or other nasal problems NECK: Negative for lumps, goiter, pain and significant neck swelling RESPIRATORY: Negative for cough, hemoptysis, wheezing, COPD, dyspnea or shortness of breath CARDIOVASCULAR: Negative for chest pain, leg swelling, hypertension, CHF or palpitations GI: No nausea, vomiting, or diarrhea : No history of dysuria, frequency or incontinence MUSCULOSKELETAL: Negative for joint pain or swelling, back pain or muscle pain SKIN: Negative for lesions, rash, and itching NEURO: No history of headaches, syncope, paralysis, seizures or tremors EXAM: BP 138/75 Pulse (!) 58 Wt 72 kg (158 lb 11.7 oz) LMP 02/13/2005 BMI 27.78 kg/m General Appearance: Well appearing, alert, in no acute distress, well-hydrated, well nourished.. Skin: Skin color, texture, turgor normal, no suspicious rashes or lesions. Head: Normocephalic, no masses, lesions, tenderness or abnormalities. Eyes: Anicteric sclera. Pupils are equally round and reactive to light. Extraocular movements are intact.. Ears: External ears normal, cerumen noted in canals, TM normal with no bulging. Nose/Sinuses: Nares normal, septum midline, mucosa normal, no drainage or sinus tenderness. Oropharynx: Lips, mucosa, and tongue normal, teeth and gums normal, oropharynx normal. Neck: Supple, no adenopathy; thyroid symmetric, normal size. Lungs clear to auscultation. No wheezing, rhonchi, rales. Heart: RRR without murmur, gallop, or rubs. No ectopy. Abdomen: Normal abdominal exam, Abdomen soft, non-tender. Bowel sounds normal. No masses, organomegaly. Extremities: No deformities, edema, skin discoloration, clubbing or cyanosis. Good capillary refill. . Musculoskeletal: No joint swelling, deformity, or tenderness. Health Maintenance List DTaP,Tdap,Td Vaccine(3 - Tdap) due on 10/02/2020 Mammogram Screening due on 06/10/2024 Advance Directive Discussion due on 08/09/2024 Depression Screening due on 11/28/2024 Covid-19 Vaccine( season) due on 12/09/2024 Colorectal Cancer Screening due on 05/07/2025 Diabetes Screening due on 12/09/2027 Lipid Screening due on 12/08/2029 Bone Density Screening Completed Influenza Vaccine Completed RSV Vaccine Completed Shingrix Vaccine Completed Pneumococcal Vaccine: 50+ Completed Hepatitis C Screening Discontinued Data reviewed KRISTIE-7 11/29/2023 11/23/2024 11/30/2024 01/02/2025 KRISTIE-7 All Questions Feeling nervous, anxious, or on edge Not at all Not at all Several days Not at all Not being able to stop or control worrying Not at all Not at all Several days Not at all Worrying too much about different things - Not at all Not at all Not at all Trouble relaxing - Not at all Not at all Not at all Being so restless that it is hard to sit still - Not at all Not at all Not at all Becoming easily annoyed or irritable - Not at all Not at all Not at all Feeling afraid, as if something awful might happen - Not at all Not at all Not at all KRISTIE-7 Score - 0 0 2 0 Details Multiple values from one day are sorted in reverse-chronological order PHQ-9 More data exists 10/29/2020 11/12/2022 11/29/2023 11/23/2024 01/09/2025 PHQ-9 Scores Little interest or pleasure in doing things: Not at all Not at all Not at all Not at all Not at all Feeling down, depressed, or hopeless: Not at all Not at all Not at all Not at all Not at all Trouble falling or staying asleep, or sleeping too much Not at all - - More than half the days - Feeling tired or having little energy Not at all - - Not at all - Poor appetite or overeating Not at all - - Not at all - Feeling bad about yourself - or that you are a failure or have let yourself or your family down Not at all - - Not at all - Trouble concentrating on things, such as reading the newspaper or watching television Not at all - - Not at all - Moving or speaking so slowly that other people could have noticed. Or the opposite - being so fidgety or restless that you have been moving around a lot more than usual Not at all - - Not at all - Thoughts that you would be better off , or of hurting yourself in some way Not at all - - Not at all - PHQ-9 Score 0 - - 2 2 - Details Multiple values from one day are sorted in reverse-chronological order ASSESSMENT/PLAN: 1. Medicare annual wellness visit, subsequent - ICD9: V70.0, ICD10: Z00.00 (primary diagnosis) - Counseled on healthy diet and regular exercise - Discussed need and benefit for weight loss. BMI 27.78 kg/(m^2) - Breast cancer screening - ordered mammogram - Patient counseled on and acknowledged vaccine benefits/risks/side effects; VIS provided: COVID-19 - Follow up for annual exam in one year 2. Screening for depression - ICD9: V79.0, ICD10: Z13.31 - DEPRESSION SCREENING 3. Encounter for immunization - ICD9: V03.89, ICD10: Z23 - PFIZER-BIONTECH COVID-19 VACCINE AGE 12+ YR (COMIRNATY) 4. Hyperlipidemia, mixed - ICD9: 272.2, ICD10: E78.2 - Controlled - Continue current medications - Counseled on healthy diet and regular exercise - SIMVASTATIN 40 MG TABLET 5. Hypertension, essential - ICD9: 401.9, ICD10: I10 - Controlled - Continue current medications - Recommend home blood pressure monitoring, to bring results to next visit - Encouraged sodium restriction, DASH or Mediterranean diet - Recommend regular aerobic exercise - LISINOPRIL 10 MG TABLET 6. Advance directive discussed with patient - ICD9: V65.49, ICD10: Z71.89 - ADVANCE CARE PLAN DISCUSSION 7. Anxiety - ICD9: 300.00, ICD10: F41.9 -Decrease seroquel to 12.5mg nightly x1 week. If improved grogginess and adequate sleep will continue half tab. If no improvement or increased insomnia would consider transition to remeron. I have personally seen and examined the patient and performed the medical-decision making components. I have reviewed the Advanced Practice Registered Nurse (EXECUTIVE CYBER LEADER) student's documentation and verified the findings in the note as written. Any additions or changes are noted in bold/italics. Nai Mendoza APRN.BD SPECIAL EDUCATION TEACHER documented in this encounter [facility] 01-09-2025 Instructions Nai Mendoza APRN.BD SPECIAL EDUCATION TEACHER - 01/09/2025 8:49 AM EDT You can update your Tdap at the pharmacy. Screening schedule The following prevention plan is recommended: DTaP,Tdap,Td Vaccine(3 - Tdap) due on 10/02/2020 Mammogram Screening due on 06/10/2024 Advance Directive Discussion due on 08/09/2024 Depression Screening due on 11/28/2024 Covid-19 Vaccine( season) due on 12/09/2024 WHAT YOU CAN DO TO PREVENT FALLS Many falls can be prevented. By making some changes, you can lower your chances of falling. Four things YOU can do to prevent falls for you* and your caregiver 1. Begin a regular exercise program Exercise is one of the most important ways to lower your chances of falling. It makes you stronger and helps you feel better. Exercises that improve balance and coordination (like Wade Chi) are the most helpful. Lack of exercise leads to weakness and increases your chances of falling. Ask your doctor or health care provider about the best type of exercise program for you. 2. Have your health care provider review your medicines Have your doctor or pharmacist review all the medicines you take, even jmwn-gdu-lzxtqvu medicines. As you get older, the way medicines work in your body can change. Some medicines, or combinations of medicines, can make you sleepy or dizzy and can cause you to fall. 3. Have your vision checked Have your eyes checked by an eye doctor at least once a year. You may be wearing the wrong glasses or have a condition like glaucoma or cataracts that limits your vision. Poor vision can increase your chances of falling. 4. Make your home safer About half of all falls happen at home. To make your home safer: Remove things you can trip over (like papers, books, clothes, and shoes) from stairs and places where you walk. Remove small throw rugs or use double-sided tape to keep the rugs from slipping. Keep items you use often in cabinets you can reach easily without using a step stool. Have grab bars put in next to your toilet and in the tub or shower. Use non-slip mats in the bathtub and on shower floors. Improve the lighting in your home. As you get older, you need brighter lights to see well. Hang light-weight curtains or shades to reduce glare. Have handrails and lights put in on all staircases. Wear shoes both inside and outside the house. Avoid going barefoot or wearing slippers. For more information, contact: Centers for Disease Control and Prevention www.cdc.gov/injury * This information may not apply if you have certain medical conditions. documented in this encounter [facility] 12-25-2024 Telephone encounter Note Removed Lisinopril as Pt has another refill good through 02/07/25. Rowena Washington, RN [facility] 12-25-2024 Miscellaneous Notes Removed Lisinopril as Pt has another refill good through 02/07/25. Rowena Washington RN Prescription Refill Information The patient has been identified by name and date of : Yes Caregiver verified no other encounters exist for this prescription request: Yes Caregiver confirmed with patient/requestor that no other refills are due, in the near future, with this provider at this time: Yes The last office visit in the department: 12/07/2024 Does the patient have a future office visit with this provider/department: Yes Requested Prescriptions Pending Prescriptions Disp Refills QUEtiapine (SEROQUEL) 25 mg tablet 30 tablet 0 Sig: Take 1 tablet by mouth daily at bedtime. Teresa Velásquez December 25, 2024 3:31 PM documented in this encounter [facility] 12-25-2024 Telephone encounter Note Prescription Refill Information The patient has been identified by name and date of : Yes Caregiver verified no other encounters exist for this prescription request: Yes Caregiver confirmed with patient/requestor that no other refills are due, in the near future, with this provider at this time: Yes The last office visit in the department: 12/07/2024 Does the patient have a future office visit with this provider/department: Yes Requested Prescriptions Pending Prescriptions Disp Refills QUEtiapine (SEROQUEL) 25 mg tablet 30 tablet 0 Sig: Take 1 tablet by mouth daily at bedtime. Teresa Velásquez December 25, 2024 3:31 PM [facility] 12-12-2024 Telephone encounter Note See mychart message. Michelle Helton MA [facility] 12-12-2024 Miscellaneous Notes See mychart message. Michelle Helton MA documented in this encounter [facility] 12-12-2024 Telephone encounter Note Cori notified of provider's instructions. Cori verbalizes understanding. Sofiya Hyatt RN [facility] 12-12-2024 Miscellaneous Notes Cori notified of provider's instructions. Cori verbalizes understanding. Sofiya Hyatt RN It appears patient was on lorazepam in the past which is not a good snf option. I can refer to psychiatry for further evaluation which I would encourage due to sudden worsening of symptoms as well as normal lab and imaging findings. [facility] [address] [place] [address] [facility] [address] [place] [address] [facility] [address] [place], [place] [address] [facility] [address] [place], [place] [id number] [place] [id number] [address] [facility] [place], [address] Patient's daughter in law Cori calls and notified of results and provider's instructions. Cori verbalizes understanding. Cori states that Seroquel is helping the patient sleep better. Patient's anxiety is still horrible. Cori asking if something can be sent in for anxiety? Patient had told Cori that she had taken something previous for anxiety and it worked. Cori asking if patient can maybe be put on that? Please give Cori a call back with response. Sofiya Hyatt RN Please let patient know her MRI is normal. Her TSH is very minimally elevated but her T3 and T4 are normal so likely not the cause of her symptoms. The rest of her labs are normal. Is she sleeping better with the seroquel? documented in this encounter [facility] 12-12-2024 Telephone encounter Note It appears patient was on lorazepam in the past which is not a good adjunct faculty for medical terminology option. I can refer to psychiatry for further evaluation which I would encourage due to sudden worsening of symptoms as well as normal lab and imaging findings. [facility] Medication Management [facility]) [address] [place] [address] [facility] [address] [place] [address] [facility] [address] [place] [id number] [facility] [address] [place], [place] [id number] [address], [facility] [phone] [facility] 12-11-2024 Telephone encounter Note Patient's daughter in law Cori calls and notified of results and provider's instructions. Cori verbalizes understanding. Cori states that Seroquel is helping the patient sleep better. Patient's anxiety is still horrible. Cori asking if something can be sent in for anxiety? Patient had told Cori that she had taken something previous for anxiety and it worked. Vernell asking if patient can maybe be put on that? Please give Vernell a call back with response. Sofiya Hyatt RN [facility] 12-11-2024 Telephone encounter Note Please let patient know her MRI is normal. Her TSH is very minimally elevated but her T3 and T4 are normal so likely not the cause of her symptoms. The rest of her labs are normal. Is she sleeping better with the seroquel? [facility] 12-09-2024 History of Present illness Narrative Radiology Service Progress Note PATIENT NAME: Tyler Casas DATE OF SERVICE: December 09, 2024 TIME: 11:17 AM PATIENT IDENTITY VERIFICATION COMPLETED USING TWO (2) IDENTIFIERS: Name and Date of confirmed by patient verbally. FALL SCREENING: Has the patient had 2 falls in the last year or 1 fall with injury or currently using an Ambulatory Assistive Device (Walker, Cane, Wheelchair, Crutches, etc.)? No PATIENT GENDER DATA: Assigned female at . status: : No status: NO. PATIENT RELEVANT IMPLANT DATA REVIEWED: Not Applicable PATIENT PRESENTS WITH AN IMPLANTABLE OR ATTACHED MARINE DESIGNER: No RADIOLOGY DEPARTMENT: MR; Exam(s) Completed: Head: Routine Brain. Lavender Administered: No PERIPHERAL IV DATA: Not applicable SIGNED BY: RT Scott(Teo) December 09, 2024 11:17 AM documented in this encounter [facility] 12-09-2024 Note HNO ID: [id number] Author: KANNAN GUILLERMO RT(Teo) Service: ? Author Type: Scarfer Type: Progress Notes Filed: 12/09/2024 11:18 Note Text: Radiology Service Progress Note PATIENT NAME: Tyler Casas DATE OF SERVICE: December 09, 2024 TIME: 11:17 AM PATIENT IDENTITY VERIFICATION COMPLETED USING TWO (2) IDENTIFIERS: Name and Date of confirmed by patient verbally. FALL SCREENING: Has the patient had 2 falls in the last year or 1 fall with injury or currently using an Ambulatory Assistive Device (Walker, Cane, Wheelchair, Crutches, etc.)? No PATIENT GENDER DATA: Assigned female at . status: : No status: NO. PATIENT RELEVANT IMPLANT DATA REVIEWED: Not Applicable PATIENT PRESENTS WITH AN IMPLANTABLE OR ATTACHED MARINE DESIGNER: No RADIOLOGY DEPARTMENT: MR; Exam(s) Completed: Head: Routine Brain. Lavender Administered: No PERIPHERAL IV DATA: Not applicable SIGNED BY: RT Scott(R) December 09, 2024 11:17 AM [facility] 12-08-2024 Telephone encounter Note See patient MC message. Patient was in office 12/07 for memory loss and BP check was cancelled for next day. BP at 12/07 appointment 111/68. Please advise. Tyra Yeager LPN [facility] 12-08-2024 Miscellaneous Notes See patient MC message. Patient was in office 12/07 for memory loss and BP check was cancelled for next day. BP at 12/07 appointment 111/68. Please advise. Tyra Yeager LPN documented in this encounter [facility] 12-07-2024 Instructions Nai Mendoza APRN.[facility] - 12/07/2024 4:47 PM EDT You will stop taking trazodone and start taking Seroquel 25 mg at bedtime to help with sleep and anxiety. You have been prescribed Ativan 1 mg to take one hour before your brain MRI. This is to help you feel more relaxed during the scan at the [facility]. Please come in for fasting lab tests tomorrow morning. Do not eat or drink anything (except water, black coffee, or plain tea) after midnight tonight. Your labs will include a syphilis test, thyroid function, urine study, and vitamin B levels, among other tests. Complete the online Bach facial recognition test via [employer] when you feel rested at home. We will review your lab results on Wednesday and call you (and/or your ) if any findings need attention. documented in this encounter [facility] 12-07-2024 Note HNO ID: [id number] Author: NAI MENDOZA APRN.[facility] Service: ? Author Type: Nurse Practitioner Type: Progress Notes Filed: 12/07/2024 16:56 Note Text: Chief Complaint Patient presents with: Anxiety memory concern HPI Tyler Casas is a 69 year old female who presents here today for Above Complaints. Memory Issues: - Onset of memory issues after resuming trazodone. - Difficulty remembering recent events, such as what she just ate. - MMSE score: 27/30. Anxiety: - Increased anxiety episodes, including feeling like the room is closing in. - Episodes require going outside to calm down. - Anxiety episodes have become more frequent. Insomnia: - Poor sleep quality, even while taking trazodone. - Sleep is fragmented and restless. - Difficulty falling asleep; experiences anxiety when trying to sleep. - Reports feeling tired but unable to sleep due to a racing mind. - Has tried breathing exercises with variable success. - Longstanding history of insomnia. - Goes to bed around 20:00-22:00. Past medical history, appointments, medications, allergies reviewed. Previous Medical History PAST MEDICAL HISTORY Diagnosis Date Essential hypertension 11/10/2024 Obesity Other and unspecified hyperlipidemia Snoring Previous Surgical History PAST SURGICAL HISTORY Procedure Laterality Date DELIVERY ONLY , low cervical COLONOSCOPY FLX DX W/COLLJ SPEC WHEN PFRMD 04/10/05 Colonoscopy COLONOSCOPY FLX DX W/COLLJ SPEC WHEN PFRMD 05-07-15 TONSILLECTOMY AND ADENOIDECTOMY T/A (under age 11 years) Family History FAMILY HISTORY Problem Relation Age of Onset Hypertension Mother Coronary Artery Disease Mother Stroke Mother Alzheimer's Disease Father Coronary Artery Disease Father Hypertension Father Stroke Father Diabetes Sister Hypertension Sister Breast Cancer Sister 59 Colon Cancer Maternal Grandfather Patient Allergies ALLERGIES Allergen Reactions Cleocin [Clindamyci* Tetracycline Current Medications Current Outpatient Medications on File Prior to Visit Medication Sig traZODone (DESYREL) 50 mg tablet TAKE 1 TABLET BY MOUTH EVERYDAY AT BEDTIME lisinopril (ZESTRIL) 10 mg tablet Take 1 tablet by mouth once daily. simvastatin (ZOCOR) 80 mg tablet Take 1 tablet by mouth daily at bedtime. vit C,S-Dw-jhlot-lutein-zeaxan (PRESERVISION AREDS-2) 250-90-40-1 mg Take 1 capsule by mouth twice daily with meals. calcium carbonate 600 mg-cholecalciferol 400 units (CALCIUM 600 + D) 600 mg(1,500mg) -400 unit tab Take 1 tablet by mouth twice daily. multivitamins(MULTIPLE VITAMIN TAB) Take one(1) tablet daily. No current facility-administered medications on file prior to visit. Social History Social History Tobacco Use Smoking status: Never Smokeless tobacco: Never Vaping Use Vaping status: Never Used Substance Use Topics Alcohol use: No Drug use: No Review of Symptoms REVIEW OF SYSTEMS SEE HPI EXAM: BP 111/68 Pulse 63 Wt 73 kg (160 lb 15 oz) LMP 02/13/2005 BMI 28.16 kg/m? General Appearance: Well appearing, alert, in no acute distress, well-hydrated, well nourished. Neurologic: Gait normal. Reflexes normal and symmetric. Sensation grossly intact.. Health Maintenance List DTaP,Tdap,Td Vaccine(3 - Tdap) due on 10/02/2020 Mammogram Screening due on 06/10/2024 Advance Directive Discussion due on 08/09/2024 Depression Screening due on 11/28/2024 Covid-19 Vaccine() due on 12/09/2024 Colorectal Cancer Screening due on 05/07/2025 Diabetes Screening due on 12/05/2026 Lipid Screening due on 12/05/2028 Bone Density Screening Completed Influenza Vaccine Completed RSV Vaccine Completed Shingrix Vaccine Completed Pneumococcal Vaccine: 50+ Completed Hepatitis C Screening Discontinued ASSESSMENT/PLAN: 1. Memory loss - ICD9: 780.93, ICD10: R41.3 (primary diagnosis) - SYPHILIS TREPONEMAL W/REFLEX - THYROID STIMULATING HORMONE - T3 - T4 FREE/FREE THYROXINE - URINALYSIS, WITH MICROSCOPIC - VITAMIN B12 - FOLATE, SERUM - MRI BRAIN WO IVCON - BACH SCREENING TEST - UA DIP, URINE (POC) 2. Chronic insomnia - ICD9: 780.52, ICD10: F51.04 - QUETIAPINE 25 MG TABLET 3. Claustrophobia - ICD9: 300.29, ICD10: F40.240 - LORAZEPAM 1 MG TABLET 4. Hyperlipidemia, mixed - ICD9: 272.2, ICD10: E78.2 - Control undetermined, due for labs - Continue current medications - Counseled on healthy diet and regular exercise - LIPID PANEL, FASTING 5. Medication management - ICD9: V58.69, ICD10: Z79.899 - COMPLETE BLOOD COUNT AND DIFFERENTIAL - COMPREHENSIVE METABOLIC PANEL 6. Screening for diabetes mellitus - ICD9: V77.1, ICD10: Z13.1 - HEMOGLOBIN A1C Follow up in 1 month for medicare wellness. Nai Mendoza APRN.[facility] 12-07-2024 History of Present illness Narrative Chief Complaint Patient presents with: Anxiety memory concern HPI Tyler Casas is a 69 year old female who presents here today for Above Complaints. Memory Issues: - Onset of memory issues after resuming trazodone. - Difficulty remembering recent events, such as what she just ate. - MMSE score: 27/30. Anxiety: - Increased anxiety episodes, including feeling like the room is closing in. - Episodes require going outside to calm down. - Anxiety episodes have become more frequent. Insomnia: - Poor sleep quality, even while taking trazodone. - Sleep is fragmented and restless. - Difficulty falling asleep; experiences anxiety when trying to sleep. - Reports feeling tired but unable to sleep due to a racing mind. - Has tried breathing exercises with variable success. - Longstanding history of insomnia. - Goes to bed around 20:00-22:00. Past medical history, appointments, medications, allergies reviewed. Previous Medical History PAST MEDICAL HISTORY Diagnosis Date Essential hypertension 11/10/2024 Obesity Other and unspecified hyperlipidemia Snoring Previous Surgical History PAST SURGICAL HISTORY Procedure Laterality Date DELIVERY ONLY , low cervical COLONOSCOPY FLX DX W/COLLJ SPEC WHEN PFRMD 04/10/05 Colonoscopy COLONOSCOPY FLX DX W/COLLJ SPEC WHEN PFRMD 05-07-15 TONSILLECTOMY & ADENOIDECTOMY <AGE 12 T/A (under age 11 years) Family History FAMILY HISTORY Problem Relation Age of Onset Hypertension Mother Coronary Artery Disease Mother Stroke Mother Alzheimer's Disease Father Coronary Artery Disease Father Hypertension Father Stroke Father Diabetes Sister Hypertension Sister Breast Cancer Sister 59 Colon Cancer Maternal Grandfather Patient Allergies ALLERGIES Allergen Reactions Cleocin [Clindamyci* Tetracycline Current Medications Current Outpatient Medications on File Prior to Visit Medication Sig traZODone (DESYREL) 50 mg tablet TAKE 1 TABLET BY MOUTH EVERYDAY AT BEDTIME lisinopril (ZESTRIL) 10 mg tablet Take 1 tablet by mouth once daily. simvastatin (ZOCOR) 80 mg tablet Take 1 tablet by mouth daily at bedtime. vit C,M-Fp-uivei-lutein-zeaxan (PRESERVISION AREDS-2) 250-90-40-1 mg Take 1 capsule by mouth twice daily with meals. calcium carbonate 600 mg-cholecalciferol 400 units (CALCIUM 600 + D) 600 mg(1,500mg) -400 unit tab Take 1 tablet by mouth twice daily. multivitamins(MULTIPLE VITAMIN TAB) Take one(1) tablet daily. No current facility-administered medications on file prior to visit. Social History Social History Tobacco Use Smoking status: Never Smokeless tobacco: Never Vaping Use Vaping status: Never Used Substance Use Topics Alcohol use: No Drug use: No Review of Symptoms REVIEW OF SYSTEMS SEE HPI EXAM: BP 111/68 Pulse 63 Wt 73 kg (160 lb 15 oz) LMP 02/13/2005 BMI 28.16 kg/m General Appearance: Well appearing, alert, in no acute distress, well-hydrated, well nourished. Neurologic: Gait normal. Reflexes normal and symmetric. Sensation grossly intact.. Health Maintenance List DTaP,Tdap,Td Vaccine(3 - Tdap) due on 10/02/2020 Mammogram Screening due on 06/10/2024 Advance Directive Discussion due on 08/09/2024 Depression Screening due on 11/28/2024 Covid-19 Vaccine( season) due on 12/09/2024 Colorectal Cancer Screening due on 05/07/2025 Diabetes Screening due on 12/05/2026 Lipid Screening due on 12/05/2028 Bone Density Screening Completed Influenza Vaccine Completed RSV Vaccine Completed Shingrix Vaccine Completed Pneumococcal Vaccine: 50+ Completed Hepatitis C Screening Discontinued ASSESSMENT/PLAN: 1. Memory loss - ICD9: 780.93, ICD10: R41.3 (primary diagnosis) - SYPHILIS TREPONEMAL W/REFLEX - THYROID STIMULATING HORMONE - T3 - T4 FREE/FREE THYROXINE - URINALYSIS, WITH MICROSCOPIC - VITAMIN B12 - FOLATE, SERUM - MRI BRAIN WO IVCON - BACH SCREENING TEST - UA DIP, URINE (POC) 2. Chronic insomnia - ICD9: 780.52, ICD10: F51.04 - QUETIAPINE 25 MG TABLET 3. Claustrophobia - ICD9: 300.29, ICD10: F40.240 - LORAZEPAM 1 MG TABLET 4. Hyperlipidemia, mixed - ICD9: 272.2, ICD10: E78.2 - Control undetermined, due for labs - Continue current medications - Counseled on healthy diet and regular exercise - LIPID PANEL, FASTING 5. Medication management - ICD9: V58.69, ICD10: Z79.899 - COMPLETE BLOOD COUNT AND DIFFERENTIAL - COMPREHENSIVE METABOLIC PANEL 6. Screening for diabetes mellitus - ICD9: V77.1, ICD10: Z13.1 - HEMOGLOBIN A1C Follow up in 1 month for medicare wellness. Nai Mendoza APRN.[employer] documented in this encounter [facility] 11-28-2024 Telephone encounter Note Called MICHELLE and reviewed message with her. She voiced understanding. Teresa Davison LPN [facility] 11-28-2024 Miscellaneous Notes Called MICHELLE and reviewed message with her. She voiced understanding. Teresa Davison LPN With these complaints, I would recommend waiting until OV to order labs. Should be made aware that new complaints such as anxiety and memory concerns are not covered under medicare wellness exam. May need to address these first and reschedule medicare wellness. Pt's MICHELLE Matt calls to report pt has an appt on 11/30 for Medicare Wellness. Asking if pt can get labs done before appt. If so call Cori back with lab orders. Vernell also reports pt cut cholesterol dose in half on her own. Cori wanted to let dr know this before labs resulted. Cori also reports pt is having anxiety issues and memory issues. CAlled pt to ask if pt gives permission for Vernell to talk about and receive medical information. Pt gave permission. Mag Roland LPN documented in this encounter [facility] 11-28-2024 Telephone encounter Note With these complaints, I would recommend waiting until OV to order labs. Should be made aware that new complaints such as anxiety and memory concerns are not covered under medicare wellness exam. May need to address these first and reschedule medicare wellness. [facility] 11-28-2024 Telephone encounter Note Pt's MICHELLE Matt calls to report pt has an appt on 11/30 for Medicare Wellness. Asking if pt can get labs done before appt. If so call Cori back with lab orders. Vernell also reports pt cut cholesterol dose in half on her own. Tji wanted to let dr know this before labs resulted. Tji also reports pt is having anxiety issues and memory issues. CAlled pt to ask if pt gives permission for Vernell to talk about and receive medical information. Pt gave permission. Mag Roland LPN [facility] 11-10-2024 History of Present illness Narrative 11/10/2024 Patient presents with: BP Check SUBJECTIVE: This is a 69 year old that is here today for Above Complaints. BP elevated at last office appointment. Not checking BP at home. Denies visual changes, headaches lightheadedness, dizziness, slurred speech, facial drooping, extremity numbness tingling or weakness PAST MEDICAL HISTORY Diagnosis Date Obesity Other and unspecified hyperlipidemia Snoring ALLERGIES Cleocin [Clindamycin Hcl] and Tetracycline MEDICATIONS Current Outpatient Medications Medication Sig traZODone (DESYREL) 50 mg tablet Take 1 tablet by mouth daily at bedtime. simvastatin (ZOCOR) 80 mg tablet Take 1 tablet by mouth daily at bedtime. vit C,E-Ga-dyenh-lutein-zeaxan (PRESERVISION AREDS-2) 250-90-40-1 mg Take 1 capsule by mouth twice daily with meals. calcium carbonate 600 mg-cholecalciferol 400 units (CALCIUM 600 + D) 600 mg(1,500mg) -400 unit tab Take 1 tablet by mouth twice daily. multivitamins(MULTIPLE VITAMIN TAB) Take one(1) tablet daily. No current facility-administered medications for this visit. Medications and allergies reviewed by this provider. SOCIAL HISTORY Social History Tobacco Use Smoking status: Never Smokeless tobacco: Never Vaping Use Vaping status: Never Used Substance Use Topics Alcohol use: No Drug use: No REVIEW OF SYSTEMS All other reviewed and negative other than HPI. OBJECTIVE: BP 150/70 Pulse (!) 54 Resp 18 Wt 75.3 kg (166 lb) LMP 02/13/2005 SpO2 97% BMI 29.05 kg/m . Vital signs reviewed by this provider. APPEARANCE Well appearing, alert, in no acute distress, well-hydrated, well nourished. EYES conjunctiva and sclera normal. NECK Supple, no adenopathy; thyroid symmetric, normal size, no bruits HEART RRR with normal S1 and S2, no murmurs, no gallops, no JVD appreciated LUNG clear to auscultation. No wheezes, rhonchi or rales EXTREMITIES Extremities normal, No deformities, No skin discoloration, and No edema SKIN Skin color, texture, turgor normal, no suspicious rashes or lesions to exposed skin Latest Ref Rng 12/06/2023 WBC 3.70 - 11.00 k/uL 3.88 RBC 3.90 - 5.20 m/uL 4.62 Hemoglobin 11.5 - 15.5 g/dL 14.9 Hematocrit 36.0 - 46.0 % 45.4 MCV 80.0 - 100.0 fL 98.3 MCH 26.0 - 34.0 pg 32.3 MCHC 30.5 - 36.0 g/dL 32.8 RDW-CV 11.5 - 15.0 % 13.1 Platelet Count 150 - 400 k/uL 284 MPV 9.0 - 12.7 fL 8.6 (L) Neut% % 49.7 Abs Neut (ANC) 1.45 - 7.50 k/uL 1.93 Lymph% % 36.6 Abs Lymph 1.00 - 4.00 k/uL 1.42 Early% % 9.8 Abs Early <0.87 k/uL 0.38 Eosin% % 2.8 Abs Eosin <0.46 k/uL 0.11 Baso% % 0.8 Abs Baso <0.11 k/uL 0.03 Immature Gran % % 0.3 IMMATURE GRANS (ABS) <0.10 k/uL <0.03 NRBC /100 WBC 0.0 Absolute nRBC <0.01 k/uL <0.01 DTYPE Auto Protein, Total 6.3 - 8.0 g/dL 6.9 Albumin 3.9 - 4.9 g/dL 4.3 Calcium 8.5 - 10.2 mg/dL 9.5 Bilirubin, Total 0.2 - 1.3 mg/dL 0.4 Alkaline Phosphatase 34 - 123 U/L 90 AST 13 - 35 U/L 27 ALT 7 - 38 U/L 18 Glucose 74 - 99 mg/dL 86 BUN 7 - 21 mg/dL 8 Creatinine 0.58 - 0.96 mg/dL 0.49 (L) Sodium 136 - 144 mmol/L 142 Potassium 3.7 - 5.1 mmol/L 4.2 Chloride 97 - 105 mmol/L 105 CO2 22 - 30 mmol/L 25 Anion Gap 9 - 18 mmol/L 12 eGFR >=60 mL/min/1.73m 102 Cholesterol, Total <200 mg/dL 176 Triglyceride <150 mg/dL 67 HDL Cholesterol >39 mg/dL 68 Non HDL Cholesterol <130 mg/dL 108 Fasting Time hrs 12 VLDL Cholesterol <30 mg/dL 13 TC:HDL Ratio <5.10 2.59 LDL Cholesterol <100 mg/dL 95 LDL:HDL Ratio <2.54 1.40 Hemoglobin A1C 4.3 - 5.6 % 4.8 Estimated Average Glucose mg/dL 91 Legend: (L) Low DTaP,Tdap,Td Vaccine(3 - Tdap) due on 10/02/2020 Mammogram Screening due on 06/10/2024 Advance Directive Discussion due on 08/09/2024 Depression Screening due on 11/28/2024 Covid-19 Vaccine( season) due on 12/09/2024 Colorectal Cancer Screening due on 05/07/2025 Diabetes Screening due on 12/05/2026 Lipid Screening due on 12/05/2028 Bone Density Screening Completed Influenza Vaccine Completed RSV Vaccine Completed Shingrix Vaccine Completed Pneumococcal Vaccine: 50+ Completed Hepatitis C Screening Discontinued ASSESSMENT/PLAN: 1. Hypertension, essential - ICD9: 401.9, ICD10: I10 - New diagnosis - Start lisinopril - Recommend home blood pressure monitoring, to bring results to next visit - Encouraged sodium restriction, DASH or Mediterranean diet - Recommend regular aerobic exercise - Follow up in 4 weeks for hypertension visit - LISINOPRIL 10 MG TABLET Kendra Murphy APRN.[facility] Prescription instructions reviewed with patient as applicable. Patient advised if symptoms do not improve or if symptoms worsen sooner, to contact their primary care physician. Potential red flag symptoms discussed with the patient. Reviewed appropriate action plan to take if red flag symptoms occur. Patient agreeable to treatment plan. Medical Decision Making: Problems: Moderate: New problem with uncertain prognosis Risk: Moderate: Drug management Medical Decision Making Level: 4 - Moderate documented in this encounter [facility] 11-10-2024 Note HNO ID: [id number] Author: KENDRA MURPHY APRN.[facility] Service: ? Author Type: Nurse Practitioner Type: Progress Notes Filed: 11/10/2024 09:57 Note Text: 11/10/2024 Patient presents with: BP Check SUBJECTIVE: This is a 69 year old that is here today for Above Complaints. BP elevated at last office appointment. Not checking BP at home. Denies visual changes, headaches lightheadedness, dizziness, slurred speech, facial drooping, extremity numbness tingling or weakness PAST MEDICAL HISTORY Diagnosis Date Obesity Other and unspecified hyperlipidemia Snoring ALLERGIES Cleocin [Clindamycin Hcl] and Tetracycline MEDICATIONS Current Outpatient Medications Medication Sig traZODone (DESYREL) 50 mg tablet Take 1 tablet by mouth daily at bedtime. simvastatin (ZOCOR) 80 mg tablet Take 1 tablet by mouth daily at bedtime. vit C,P-Wx-bvzhc-lutein-zeaxan (PRESERVISION AREDS-2) 250-90-40-1 mg Take 1 capsule by mouth twice daily with meals. calcium carbonate 600 mg-cholecalciferol 400 units (CALCIUM 600 + D) 600 mg(1,500mg) -400 unit tab Take 1 tablet by mouth twice daily. multivitamins(MULTIPLE VITAMIN TAB) Take one(1) tablet daily. No current facility-administered medications for this visit. Medications and allergies reviewed by this provider. SOCIAL HISTORY Social History Tobacco Use Smoking status: Never Smokeless tobacco: Never Vaping Use Vaping status: Never Used Substance Use Topics Alcohol use: No Drug use: No REVIEW OF SYSTEMS All other reviewed and negative other than HPI. OBJECTIVE: BP 150/70 Pulse (!) 54 Resp 18 Wt 75.3 kg (166 lb) LMP 02/13/2005 SpO2 97% BMI 29.05 kg/m? . Vital signs reviewed by this provider. APPEARANCE Well appearing, alert, in no acute distress, well-hydrated, well nourished. EYES conjunctiva and sclera normal. NECK Supple, no adenopathy; thyroid symmetric, normal size, no bruits HEART RRR with normal S1 and S2, no murmurs, no gallops, no JVD appreciated LUNG clear to auscultation. No wheezes, rhonchi or rales EXTREMITIES Extremities normal, No deformities, No skin discoloration, and No edema SKIN Skin color, texture, turgor normal, no suspicious rashes or lesions to exposed skin Latest Ref [facility] 12/06/2023 WBC 3.70 - 11.00 k/uL 3.88 RBC 3.90 - 5.20 m/uL 4.62 Hemoglobin 11.5 - 15.5 g/dL 14.9 Hematocrit 36.0 - 46.0 % 45.4 MCV 80.0 - 100.0 fL 98.3 MCH 26.0 - 34.0 pg 32.3 MCHC 30.5 - 36.0 g/dL 32.8 RDW-CV 11.5 - 15.0 % 13.1 Platelet Count 150 - 400 k/uL 284 MPV 9.0 - 12.7 fL 8.6 (L) Neut% % 49.7 Abs Neut (ANC) 1.45 - 7.50 k/uL 1.93 Lymph% % 36.6 Abs Lymph 1.00 - 4.00 k/uL 1.42 Early% % 9.8 Abs Early <0.87 k/uL 0.38 Eosin% % 2.8 Abs Eosin <0.46 k/uL 0.11 Baso% % 0.8 Abs Baso <0.11 k/uL 0.03 Immature Gran % % 0.3 IMMATURE GRANS (ABS) <0.10 k/uL <0.03 NRBC /100 WBC 0.0 Absolute nRBC <0.01 k/uL <0.01 DTYPE Auto Protein, Total 6.3 - 8.0 g/dL 6.9 Albumin 3.9 - 4.9 g/dL 4.3 Calcium 8.5 - 10.2 mg/dL 9.5 Bilirubin, Total 0.2 - 1.3 mg/dL 0.4 Alkaline Phosphatase 34 - 123 U/L 90 AST 13 - 35 U/L 27 ALT 7 - 38 U/L 18 Glucose 74 - 99 mg/dL 86 BUN 7 - 21 mg/dL 8 Creatinine 0.58 - 0.96 mg/dL 0.49 (L) Sodium 136 - 144 mmol/L 142 Potassium 3.7 - 5.1 mmol/L 4.2 Chloride 97 - 105 mmol/L 105 CO2 22 - 30 mmol/L 25 Anion Gap 9 - 18 mmol/L 12 eGFR >=60 mL/min/1.73m? 102 Cholesterol, Total <200 mg/dL 176 Triglyceride <150 mg/dL 67 HDL Cholesterol >39 mg/dL 68 Non HDL Cholesterol <130 mg/dL 108 Fasting Time hrs 12 VLDL Cholesterol <30 mg/dL 13 TC:HDL Ratio <5.10 2.59 LDL Cholesterol <100 mg/dL 95 LDL:HDL Ratio <2.54 1.40 Hemoglobin A1C 4.3 - 5.6 % 4.8 Estimated Average Glucose mg/dL 91 Legend: (L) Low DTaP,Tdap,Td Vaccine(3 - Tdap) due on 10/02/2020 Mammogram Screening due on 06/10/2024 Advance Directive Discussion due on 08/09/2024 Depression Screening due on 11/28/2024 Covid-19 Vaccine() due on 12/09/2024 Colorectal Cancer Screening due on 05/07/2025 Diabetes Screening due on 12/05/2026 Lipid Screening due on 12/05/2028 Bone Density Screening Completed Influenza Vaccine Completed RSV Vaccine Completed Shingrix Vaccine Completed Pneumococcal Vaccine: 50+ Completed Hepatitis C Screening Discontinued ASSESSMENT/PLAN: 1. Hypertension, essential - ICD9: 401.9, ICD10: I10 - New diagnosis - Start lisinopril - Recommend home blood pressure monitoring, to bring results to next visit - Encouraged sodium restriction, DASH or Mediterranean diet - Recommend regular aerobic exercise - Follow up in 4 weeks for hypertension visit - LISINOPRIL 10 MG TABLET Kendra Murphy, [employer] Prescription instructions reviewed with patient as applicable. Patient advised if symptoms do not improve or if symptoms worsen sooner, to contact their primary care physician. Potential red flag symptoms discussed with the patient. Reviewed appropriate action plan (more content not included)... [facility] 11-06-2024 Note HNO ID: [id number] Author: NAI MENDOZA APRN.[employer] Service: ? Author Type: Nurse Practitioner Type: Progress Notes Filed: 11/06/2024 09:32 Note Text: Chief Complaint Patient presents with: Sleep Problem HPI Tyler Casas is a 69 year old female who presents here today for Above Complaints.. Patient presents for sleeping concerns. Patient reports she has chronic insomnia and takes melatonin occasionally for sleep. Denies ever trying medication to help her sleep. Past medical history, appointments, medications, allergies reviewed. Previous Medical History PAST MEDICAL HISTORY Diagnosis Date Obesity Other and unspecified hyperlipidemia Snoring Previous Surgical History PAST SURGICAL HISTORY Procedure Laterality Date DELIVERY ONLY , low cervical COLONOSCOPY FLX DX W/COLLJ SPEC WHEN PFRMD 04/10/05 Colonoscopy COLONOSCOPY FLX DX W/COLLJ SPEC WHEN PFRMD 05-07-15 TONSILLECTOMY AND ADENOIDECTOMY T/A (under age 12 years) Family History FAMILY HISTORY Problem Relation Age of Onset Hypertension Mother Coronary Artery Disease Mother Stroke Mother Alzheimer's Disease Father Coronary Artery Disease Father Hypertension Father Stroke Father Diabetes Sister Hypertension Sister Breast Cancer Sister 59 Colon Cancer Maternal Grandfather Patient Allergies ALLERGIES Allergen Reactions Cleocin [Clindamyci* Tetracycline Current Medications Current Outpatient Medications on File Prior to Visit Medication Sig simvastatin (ZOCOR) 80 mg tablet Take 1 tablet by mouth daily at bedtime. vit C,S-Ij-dlbfm-lutein-zeaxan (PRESERVISION AREDS-2) 250-90-40-1 mg Take 1 capsule by mouth twice daily with meals. calcium carbonate 600 mg-cholecalciferol 400 units (CALCIUM 600 + D) 600 mg(1,500mg) -400 unit tab Take 1 tablet by mouth twice daily. multivitamins(MULTIPLE VITAMIN TAB) Take one(1) tablet daily. No current facility-administered medications on file prior to visit. Social History Social History Tobacco Use Smoking status: Never Smokeless tobacco: Never Vaping Use Vaping status: Never Used Substance Use Topics Alcohol use: No Drug use: No Review of Symptoms REVIEW OF SYSTEMS SEE HPI EXAM: BP 151/71 Pulse 66 Wt 75 kg (165 lb 5.5 oz) LMP 02/13/2005 BMI 28.93 kg/m? General Appearance: Well appearing, alert, in no acute distress, well-hydrated, well nourished. Lungs: Lungs clear to auscultation. No wheezing, rhonchi, rales.. Heart: RRR without murmur, gallop, or rubs. No ectopy. Health Maintenance List DTaP,Tdap,Td Vaccine(3 - Tdap) due on 10/02/2020 Mammogram Screening due on 06/10/2024 Advance Directive Discussion due on 08/09/2024 Depression Screening due on 11/28/2024 Covid-19 Vaccine( season) due on 12/09/2024 Colorectal Cancer Screening due on 05/07/2025 Diabetes Screening due on 12/05/2026 Lipid Screening due on 12/05/2028 Bone Density Screening Completed Influenza Vaccine Completed RSV Vaccine Completed Shingrix Vaccine Completed Pneumococcal Vaccine: 50+ Completed Hepatitis C Screening Discontinued ASSESSMENT/PLAN: 1. Chronic insomnia - ICD9: 780.52, ICD10: F51.04 (primary diagnosis) - TRAZODONE 50 MG TABLET 2. Elevated BP without diagnosis of hypertension - ICD9: 796.2, ICD10: R03.0 Transient BP elevation - Encouraged dietary sodium restriction/DASH diet - Recommended regular aerobic exercise. - Recommend home blood pressure monitoring, to bring results in on next visit - Follow up in 1 month for BP recheck. - Goal of BP <130/80 Nai Mendoza APRN.[facility] 11-06-2024 History of Present illness Narrative Chief Complaint Patient presents with: Sleep Problem HPI Tyler Casas is a 69 year old female who presents here today for Above Complaints.. Patient presents for sleeping concerns. Patient reports she has chronic insomnia and takes melatonin occasionally for sleep. Denies ever trying medication to help her sleep. Past medical history, appointments, medications, allergies reviewed. Previous Medical History PAST MEDICAL HISTORY Diagnosis Date Obesity Other and unspecified hyperlipidemia Snoring Previous Surgical History PAST SURGICAL HISTORY Procedure Laterality Date DELIVERY ONLY , low cervical COLONOSCOPY FLX DX W/COLLJ SPEC WHEN PFRMD 04/10/05 Colonoscopy COLONOSCOPY FLX DX W/COLLJ SPEC WHEN PFRMD 05-07-15 TONSILLECTOMY & ADENOIDECTOMY <AGE 11 T/A (under age 11 years) Family History FAMILY HISTORY Problem Relation Age of Onset Hypertension Mother Coronary Artery Disease Mother Stroke Mother Alzheimer's Disease Father Coronary Artery Disease Father Hypertension Father Stroke Father Diabetes Sister Hypertension Sister Breast Cancer Sister 59 Colon Cancer Maternal Grandfather Patient Allergies ALLERGIES Allergen Reactions Cleocin [Clindamyci* Tetracycline Current Medications Current Outpatient Medications on File Prior to Visit Medication Sig simvastatin (ZOCOR) 80 mg tablet Take 1 tablet by mouth daily at bedtime. vit C,Y-Vd-agfft-lutein-zeaxan (PRESERVISION AREDS-2) 250-90-40-1 mg Take 1 capsule by mouth twice daily with meals. calcium carbonate 600 mg-cholecalciferol 400 units (CALCIUM 600 + D) 600 mg(1,500mg) -400 unit tab Take 1 tablet by mouth twice daily. multivitamins(MULTIPLE VITAMIN TAB) Take one(1) tablet daily. No current facility-administered medications on file prior to visit. Social History Social History Tobacco Use Smoking status: Never Smokeless tobacco: Never Vaping Use Vaping status: Never Used Substance Use Topics Alcohol use: No Drug use: No Review of Symptoms REVIEW OF SYSTEMS SEE HPI EXAM: BP 151/71 Pulse 66 Wt 75 kg (165 lb 5.5 oz) LMP 02/13/2005 BMI 28.93 kg/m General Appearance: Well appearing, alert, in no acute distress, well-hydrated, well nourished. Lungs: Lungs clear to auscultation. No wheezing, rhonchi, rales.. Heart: RRR without murmur, gallop, or rubs. No ectopy. Health Maintenance List DTaP,Tdap,Td Vaccine(3 - Tdap) due on 10/02/2020 Mammogram Screening due on 06/10/2024 Advance Directive Discussion due on 08/09/2024 Depression Screening due on 11/28/2024 Covid-19 Vaccine( season) due on 12/09/2024 Colorectal Cancer Screening due on 05/07/2025 Diabetes Screening due on 12/05/2026 Lipid Screening due on 12/05/2028 Bone Density Screening Completed Influenza Vaccine Completed RSV Vaccine Completed Shingrix Vaccine Completed Pneumococcal Vaccine: 50+ Completed Hepatitis C Screening Discontinued ASSESSMENT/PLAN: 1. Chronic insomnia - ICD9: 780.52, ICD10: F51.04 (primary diagnosis) - TRAZODONE 50 MG TABLET 2. Elevated BP without diagnosis of hypertension - ICD9: 796.2, ICD10: R03.0 Transient BP elevation - Encouraged dietary sodium restriction/DASH diet - Recommended regular aerobic exercise. - Recommend home blood pressure monitoring, to bring results in on next visit - Follow up in 1 month for BP recheck. - Goal of BP <130/80 Nai Mendoza APRN.BD [employer]ATION [employer] documented in this encounter [facility] 10-17-2024 Telephone encounter Note Pt notified of results and provider message. Mag Roland LPN [facility] 10-17-2024 Miscellaneous Notes Pt notified of results and provider message. Mag Roland LPN Message left for patient to return call to review results. Teresa Davison LPN ----- Message from Juno Higginbotham MD sent at 10/17/2024 9:16 AM EDT ----- CT scan of neck without IV contrast is negative for mass or suspicious adenopathy. documented in this encounter [facility] 10-17-2024 Telephone encounter Note Message left for patient to return call to review results. Teresa Davison LPN [facility] 10-17-2024 Telephone encounter Note ----- Message from Juno Higginbotham MD sent at 10/17/2024 9:16 AM EDT ----- CT scan of neck without IV contrast is negative for mass or suspicious adenopathy. [facility] 10-17-2024 History of Present illness Narrative Radiology Service Progress Note PATIENT NAME: Tyler Casas DATE OF SERVICE: October 17, 2024 TIME: 3:16 PM PATIENT IDENTITY VERIFICATION COMPLETED USING TWO (2) IDENTIFIERS: Name and Date of confirmed by patient verbally. FALL SCREENING: Has the patient had 2 falls in the last year or 1 fall with injury or currently using an Ambulatory Assistive Device (Walker, Cane, Wheelchair, Crutches, etc.)? Yes, Patient High Risk for Falls What interventions were put in place to prevent falls during this visit? Non-Skid Socks Used PATIENT GENDER DATA: Assigned female at . status: : No status: NO. PATIENT RELEVANT IMPLANT DATA REVIEWED: Not Applicable PATIENT PRESENTS WITH AN IMPLANTABLE OR ATTACHED MARINE DESIGNER: No RADIOLOGY DEPARTMENT: CT; Exam(s) Completed: Neck PERIPHERAL IV DATA: Not applicable SIGNED BY: RT Isauro(R) October 17, 2024 3:16 PM documented in this encounter [facility] 10-17-2024 Note HNO ID: [id number] Author: DENITA WILLETT RT(R) Service: ? Author Type: Scarfer Type: Progress Notes Filed: 10/17/2024 15:16 Note Text: Radiology Service Progress Note PATIENT NAME: Tyler Casas DATE OF SERVICE: October 17, 2024 TIME: 3:16 PM PATIENT IDENTITY VERIFICATION COMPLETED USING TWO (2) IDENTIFIERS: Name and Date of confirmed by patient verbally. FALL SCREENING: Has the patient had 2 falls in the last year or 1 fall with injury or currently using an Ambulatory Assistive Device (Walker, Cane, Wheelchair, Crutches, etc.)? Yes, Patient High Risk for Falls What interventions were put in place to prevent falls during this visit? Non-Skid Socks Used PATIENT GENDER DATA: Assigned female at . status: : No status: NO. PATIENT RELEVANT IMPLANT DATA REVIEWED: Not Applicable PATIENT PRESENTS WITH AN IMPLANTABLE OR ATTACHED MARINE DESIGNER: No RADIOLOGY DEPARTMENT: CT; Exam(s) Completed: Neck PERIPHERAL IV DATA: Not applicable SIGNED BY: RT Isauro(R) October 17, 2024 3:16 PM [facility] 10-12-2024 Telephone encounter Note Patient returned call and went over notes below, assisted with transfer to machine boss to get YASMIN CT neck soft tissue appt scheduled. [facility] 10-12-2024 Miscellaneous Notes Patient returned call and went over notes below, assisted with transfer to machine boss to get YASMIN CT neck soft tissue appt scheduled. 1st attempt - left messages on both home and mobile to return call. When patient calls, please schedule YASMIN CT. Sofiya Forman Took order to PSS as it was put in as YASMIN. Rowena Washington RN CT scan ordered. Please assist with scheduling. Patient calling to give J. Podlogar BD SPECIAL EDUCATION TEACHER a message. Patient was seen by Kendra on 08/29/2024 for neck swelling. Pt had US on 09/21/2024 and it did not show any abnormality in area. Pt was told that if issue worsened that a repeat ultrasound or CT could be done. Patient states her sx's are not worse, but are no better. Same sx's as 08/29/24 OV. Please advise patient. Pat Song RN documented in this encounter [facility] 10-12-2024 Telephone encounter Note 1st attempt - left messages on both home and mobile to return call. When patient calls, please schedule YASMIN CT. Sofiya Forman [facility] 10-12-2024 Telephone encounter Note Took order to PSS as it was put in as YASMIN. Rowena Washington RN [facility] 10-12-[address] scan ordered. Please assist with scheduling. [facility] 10-12-2024 Telephone encounter Note Patient calling to give J. Podlogar BD SPECIAL EDUCATION TEACHER a message. Patient was seen by Kendra on 08/29/2024 for neck swelling. Pt had US on 09/21/2024 and it did not show any abnormality in area. Pt was told that if issue worsened that a repeat ultrasound or CT could be done. Patient states her sx's are not worse, but are no better. Same sx's as 08/29/24 OV. Please advise patient. Pat Song RN [facility] 09-21-2024 History of Present illness Narrative Radiology Service Progress Note PATIENT NAME: Tyler Casas DATE OF SERVICE: September 21, 2024 TIME: 10:48 AM PATIENT IDENTITY VERIFICATION COMPLETED USING TWO (2) IDENTIFIERS: Name and Date of confirmed by patient verbally. FALL SCREENING: Has the patient had 2 falls in the last year or 1 fall with injury or currently using an Ambulatory Assistive Device (Walker, Cane, Wheelchair, Crutches, etc.)? No PATIENT GENDER DATA: Assigned female at . status: : No status: NO. PATIENT RELEVANT IMPLANT DATA REVIEWED: Not Applicable PATIENT PRESENTS WITH AN IMPLANTABLE OR ATTACHED MARINE DESIGNER: No RADIOLOGY DEPARTMENT: Ultrasound PERIPHERAL IV DATA: Not applicable SIGNED BY: Nanci Koch RDMS September 21, 2024 10:48 AM documented in this encounter [facility] 09-21-2024 Note HNO ID: [id number] Author: NANCI KOCH RDMS Service: ? Author Type: Scarfer Type: Progress Notes Filed: 09/21/2024 10:48 Note Text: Radiology Service Progress Note PATIENT NAME: Tyler Casas DATE OF SERVICE: September 21, 2024 TIME: 10:48 AM PATIENT IDENTITY VERIFICATION COMPLETED USING TWO (2) IDENTIFIERS: Name and Date of confirmed by patient verbally. FALL SCREENING: Has the patient had 2 falls in the last year or 1 fall with injury or currently using an Ambulatory Assistive Device (Walker, Cane, Wheelchair, Crutches, etc.)? No PATIENT GENDER DATA: Assigned female at . status: : No status: NO. PATIENT RELEVANT IMPLANT DATA REVIEWED: Not Applicable PATIENT PRESENTS WITH AN IMPLANTABLE OR ATTACHED MARINE DESIGNER: No RADIOLOGY DEPARTMENT: Ultrasound PERIPHERAL IV DATA: Not applicable SIGNED BY: Nanci Koch RDMS September 21, 2024 10:48 AM [facility] 09-18-2024 Telephone encounter Note Patient aware of US. Please call and assist with scheduling. Tyra Yeager LPN [facility] 09-18-2024 Miscellaneous Notes Patient aware of US. Please call and assist with scheduling. Tyra Yeager LPN Order for Ultrasound placed, please assist in scheduling. Kendra Murphy APRN.CNP Patient called to report that the swollen lymph node on right side of neck has not improved. She would like to move forward with having the US that was discussed during last OV on 08/29/24. Please notify patient of plan of care. documented in this encounter [facility] 09-18-2024 Telephone encounter Note Order for Ultrasound placed, please assist in scheduling. Kendra Murphy APRN.BD SPECIAL EDUCATION TEACHER [facility] 09-18-2024 Telephone encounter Note Patient called to report that the swollen lymph node on right side of neck has not improved. She would like to move forward with having the US that was discussed during last OV on 08/29/24. Please notify patient of plan of care. [facility] 08-29-2024 Instructions Kendra Murphy APRN.CNP - 08/29/2024 9:24 AM EST If area persists to be swollen would Ultrasound in a month- if enlarging return to office . documented in this encounter [facility] 08-29-2024 Note HNO ID: [id number] Author: KENDRA MURPHY APRN.CNP Service: ? Author Type: Nurse Practitioner Type: Progress Notes Filed: 08/29/2024 09:46 Note Text: 08/29/2024 Patient presents with: Acute Visit: Swollen lymph node to right side of neck with right ear discomfort x3 days SUBJECTIVE: This is a 69 year old that is here today for Above Complaints.. Over the weekend noticed an area to right neck that was swollen thinks maybe a lymph node. Does have some on and off right ear pain which has been since April. Using Flonase nasal spray which helps some. No recent illnesses or known sick contacts. Denies pain to area, weight loss, trauma to area, fevers, chills, muscle aches, headaches, rhinorrhea, nasal congestion, sore throat, difficulty swallowing, SOB, dyspnea, wheezing or cough. PAST MEDICAL HISTORY Diagnosis Date Obesity Other and unspecified hyperlipidemia Snoring ALLERGIES Cleocin [Clindamycin Hcl] and Tetracycline MEDICATIONS Current Outpatient Medications Medication Sig simvastatin (ZOCOR) 80 mg tablet Take 1 tablet by mouth daily at bedtime. vit C,W-Nm-ylesn-lutein-zeaxan (PRESERVISION AREDS-2) 250-90-40-1 mg Take 1 capsule by mouth twice daily with meals. calcium carbonate 600 mg-cholecalciferol 400 units (CALCIUM 600 + D) 600 mg(1,500mg) -400 unit tab Take 1 tablet by mouth twice daily. multivitamins(MULTIPLE VITAMIN TAB) Take one(1) tablet daily. No current facility-administered medications for this visit. Medications and allergies reviewed by this provider. SOCIAL HISTORY Social History Tobacco Use Smoking status: Never Smokeless tobacco: Never Vaping Use Vaping status: Never Used Substance Use Topics Alcohol use: No Drug use: No REVIEW OF SYSTEMS All other reviewed and negative other than HPI. OBJECTIVE: BP 140/82 Pulse 68 Temp 36.7 ?C (98.1 ?F) Resp 16 Wt 76.7 kg (169 lb) LMP 02/13/2005 SpO2 94% BMI 29.57 kg/m? . Vital signs reviewed by this provider. APPEARANCE Well appearing, alert, in no acute distress, well-hydrated, well nourished. EYES conjunctiva and sclera normal. EARS External ears normal, canals clear THROAT normal, no erythema NECK FROM. Approximately half dollar sized area of mild swelling subcutaneously to right sternocleidomastoid muscle without any distinct feeling of lymph node or mobile/fixed mass. No erythema, fluctuance, TTP or open wounds HEART RRR with normal S1 and S2, no murmurs, no gallops, no JVD appreciated LUNG clear to auscultation. No wheezes rhonchi or rales SKIN Skin color, texture, turgor normal, no suspicious rashes or lesions to exposed skin DTaP,Tdap,Td Vaccine(3 - Tdap) due on 10/02/2020 Mammogram Screening due on 06/10/2024 Advance Directive Discussion due on 08/09/2024 Depression Screening due on 11/28/2024 Colorectal Cancer Screening due on 05/07/2025 Diabetes Screening due on 12/05/2026 Lipid Screening due on 12/05/2028 Bone Density Screening Completed Influenza Vaccine Completed RSV Vaccine Completed Shingrix Vaccine Completed Covid-19 Vaccine Completed Pneumococcal Vaccine: 50+ Completed Hepatitis C Screening Discontinued ASSESSMENT/PLAN: 1. Neck swelling - ICD9: 784.2, ICD10: R22.1 - consider muscular vs lymph node - no red flag symptoms or exam findings - red flag symptoms discussed, verbalizes understanding - discussed US vs close monitoring - patient will monitor area and return to office if enlarging or area still with swollen in one month would recommend US to ER with red flag symptoms Kendra Murphy, ROSA.BD SPECIAL EDUCATION TEACHER Prescription instructions reviewed with patient as applicable. Patient advised if symptoms do not improve or if symptoms worsen sooner, to contact their primary care physician. Potential red flag symptoms discussed with the patient. Reviewed appropriate action plan to take if red flag symptoms occur. Patient agreeable to treatment plan. I spent a total of 20 minutes on the date of the service which included preparing to see the patient, [id number] patient care, completing clinical documentation, obtaining and/or reviewing separately obtained history, performing a medically appropriate examination, and counseling and educating the patient/family/caregiver. [facility] 08-29-2024 History of Present illness Narrative 08/29/2024 Patient presents with: Acute Visit: Swollen lymph node to right side of neck with right ear discomfort x3 days SUBJECTIVE: This is a 69 year old that is here today for Above Complaints.. Over the weekend noticed an area to right neck that was swollen thinks maybe a lymph node. Does have some on and off right ear pain which has been since April. Using Flonase nasal spray which helps some. No recent illnesses or known sick contacts. Denies pain to area, weight loss, trauma to area, fevers, chills, muscle aches, headaches, rhinorrhea, nasal congestion, sore throat, difficulty swallowing, SOB, dyspnea, wheezing or cough. PAST MEDICAL HISTORY Diagnosis Date Obesity Other and unspecified hyperlipidemia Snoring ALLERGIES Cleocin [Clindamycin Hcl] and Tetracycline MEDICATIONS Current Outpatient Medications Medication Sig simvastatin (ZOCOR) 80 mg tablet Take 1 tablet by mouth daily at bedtime. vit C,B-Aa-ynaxi-lutein-zeaxan (PRESERVISION AREDS-2) 250-90-40-1 mg Take 1 capsule by mouth twice daily with meals. calcium carbonate 600 mg-cholecalciferol 400 units (CALCIUM 600 + D) 600 mg(1,500mg) -400 unit tab Take 1 tablet by mouth twice daily. multivitamins(MULTIPLE VITAMIN TAB) Take one(1) tablet daily. No current facility-administered medications for this visit. Medications and allergies reviewed by this provider. SOCIAL HISTORY Social History Tobacco Use Smoking status: Never Smokeless tobacco: Never Vaping Use Vaping status: Never Used Substance Use Topics Alcohol use: No Drug use: No REVIEW OF SYSTEMS All other reviewed and negative other than HPI. OBJECTIVE: BP 140/82 Pulse 68 Temp 36.7 C (98.1 F) Resp 16 Wt 76.7 kg (169 lb) LMP 02/13/2005 SpO2 94% BMI 29.57 kg/m . Vital signs reviewed by this provider. APPEARANCE Well appearing, alert, in no acute distress, well-hydrated, well nourished. EYES conjunctiva and sclera normal. EARS External ears normal, canals clear THROAT normal, no erythema NECK FROM. Approximately half dollar sized area of mild swelling subcutaneously to right sternocleidomastoid muscle without any distinct feeling of lymph node or mobile/fixed mass. No erythema, fluctuance, TTP or open wounds HEART RRR with normal S1 and S2, no murmurs, no gallops, no JVD appreciated LUNG clear to auscultation. No wheezes rhonchi or rales SKIN Skin color, texture, turgor normal, no suspicious rashes or lesions to exposed skin DTaP,Tdap,Td Vaccine(3 - Tdap) due on 10/02/2020 Mammogram Screening due on 06/10/2024 Advance Directive Discussion due on 08/09/2024 Depression Screening due on 11/28/2024 Colorectal Cancer Screening due on 05/07/2025 Diabetes Screening due on 12/05/2026 Lipid Screening due on 12/05/2028 Bone Density Screening Completed Influenza Vaccine Completed RSV Vaccine Completed Shingrix Vaccine Completed Covid-19 Vaccine Completed Pneumococcal Vaccine: 50+ Completed Hepatitis C Screening Discontinued ASSESSMENT/PLAN: 1. Neck swelling - ICD9: 784.2, ICD10: R22.1 - consider muscular vs lymph node - no red flag symptoms or exam findings - red flag symptoms discussed, verbalizes understanding - discussed US vs close monitoring - patient will monitor area and return to office if enlarging or area still with swollen in one month would recommend US to ER with red flag symptoms Kendra Murphy APRN.[facility] Prescription instructions reviewed with patient as applicable. Patient advised if symptoms do not improve or if symptoms worsen sooner, to contact their primary care physician. Potential red flag symptoms discussed with the patient. Reviewed appropriate action plan to take if red flag symptoms occur. Patient agreeable to treatment plan. I spent a total of 20 minutes on the date of the service which included preparing to see the patient, [id number] patient care, completing clinical documentation, obtaining and/or reviewing separately obtained history, performing a medically appropriate examination, and counseling and educating the patient/family/caregiver. documented in this encounter [facility] 07-26-2024 Note Patient Outreach (IN [facility]) YESSENIATYLER ([id number]) 1955 F Date Time Provider Department 07/26/24 JUNO HIGGINBOTHAM During your visit today, we recorded the following information about you: Allergies As of Date: 07/26/2024 Noted Allergy Reaction CLEOCIN (CLINDAMYCIN HCL) 08/19/2005 TETRACYCLINE 08/19/2005 Date Reviewed: 04/11/2024 Reviewed by: Teresa Davison LPN - Fully Assessed Visit Diagnosis:Encounter for screening mammogram for breast cancer [Z12.31] Order(s):[facility] [[id number]] Order #: [id number] FUTURE Prescriptions as of 07/31/2024 - simvastatin (ZOCOR) 80 mg tablet Take 1 tablet by mouth daily at bedtime. - vit C,A-Ks-shadq-lutein-zeaxan (PRESERVISION AREDS-2) 250-90-40-1 mg Take 1 capsule by mouth twice daily with meals. - calcium carbonate 600 mg-cholecalciferol 400 units (CALCIUM 600 + D) 600 mg(1,500mg) -400 unit tab Take 1 tablet by mouth twice daily. - multivitamins(MULTIPLE VITAMIN TAB) Take one(1) tablet daily. Problem List As Of Date 07/26/2024 Noted Resolved Umbilical hernia without mention of obstruction*07/17/2010 12/06/2014 Fracture of fibula, distal, right, closed [S82.*06/07/2012 12/06/2014 Arthritis of knee, left [M17.12] 12/06/2014 Anxiety [F41.9] 12/06/2014 Special screening for malignant neoplasms, colo*03/26/2015 Hyperlipidemia LDL goal <100 [E78.5] 03/10/2017 Family history of breast cancer in sister [Z80.*03/10/2017 Family history of heart disease [Z82.49] 03/10/2017 Obesity [E66.9] 11/12/2022 Encounter Status:Closed by EPIC, PRODUSER on 07/31/24 [facility] 04-11-2024 Note HNO ID: [id number] Author: JUNO HIGGINBOTHAM MD Service: ? Author Type: Physician Type: Progress Notes Filed: 04/11/2024 09:50 Note Text: Chief Complaint Patient presents with: Ear Problem: Right x 2 days pain HPI Tyler Casas is a 68 year old female who presents here today for Above Complaints. Patient complaining of right ear pain for the last 2 days. Described as constant aching pain, current 12/16, without radiation. Tried OTC ear drops without improvement in symptoms. Denies fever/chills, drainage, hearing loss, erythema, swelling, nasal congestion, rhinorrhea, swollen glands, sinus pain/pressure. Past medical history, appointments, medications, allergies reviewed. Previous Medical History PAST MEDICAL HISTORY No date: Obesity No date: Other and unspecified hyperlipidemia No date: Snoring Previous Surgical History PAST SURGICAL HISTORY No date: DELIVERY ONLY Comment: , low cervical 04/10/05: COLONOSCOPY FLX DX W/COLLJ SPEC WHEN PFRMD Comment: Colonoscopy 05-07-15: COLONOSCOPY FLX DX W/COLLJ SPEC WHEN PFRMD No date: TONSILLECTOMY AND ADENOIDECTOMY Comment: T/A (under age 11 years) Family History FAMILY HISTORY Problem Relation Age of Onset Hypertension Mother Coronary Artery Disease Mother Stroke Mother Alzheimer's Disease Father Coronary Artery Disease Father Hypertension Father Stroke Father Diabetes Sister Hypertension Sister Breast Cancer Sister 59 Colon Cancer Maternal Grandfather Patient Allergies ALLERGIES Allergen Reactions Cleocin [Clindamyci* Tetracycline Current Medications Current Outpatient Medications on File Prior to Visit Medication Sig simvastatin (ZOCOR) 80 mg tablet Take 1 tablet by mouth daily at bedtime. vit C,O-Eh-tywfn-lutein-zeaxan (PRESERVISION AREDS-2) 250-90-40-1 mg Take 1 capsule by mouth twice daily with meals. calcium carbonate 600 mg-cholecalciferol 400 units (CALCIUM 600 + D) 600 mg(1,500mg) -400 unit tab Take 1 tablet by mouth twice daily. multivitamins(MULTIPLE VITAMIN TAB) Take one(1) tablet daily. No current facility-administered medications on file prior to visit. Social History Social History Tobacco Use Smoking status: Never Smokeless tobacco: Never Vaping Use Vaping status: Never Used Substance Use Topics Alcohol use: No Drug use: No Review of Symptoms REVIEW OF SYSTEMS See HPI EXAM: BP 128/76 Pulse 62 Temp 36.4 ?C (97.6 ?F) Resp 16 Wt 79.4 kg (175 lb) LMP 02/13/2005 SpO2 97% BMI 30.62 kg/m? General Appearance: Well appearing, alert, in no acute distress, well-hydrated, well nourished.. Skin: Skin color, texture, turgor normal, no suspicious rashes or lesions. Head: Normocephalic, no masses, lesions, tenderness or abnormalities. Eyes: Anicteric sclera. Pupils are equally round and reactive to light. Extraocular movements are intact. . Ears: Serous effusion of right TM without erythema. Left TM normal. Canals normal. Oropharynx: Lips, mucosa, and tongue normal, teeth and gums normal, oropharynx normal. Neck: Supple, no adenopathy; thyroid symmetric, normal size, no bruits. Lungs: Lungs clear to auscultation. No wheezing, rhonchi, rales.. Heart: RRR without murmur, gallop, or rubs. No ectopy. Health Maintenance List DTaP,Tdap,Td Vaccine(3 - Tdap) due on 10/02/2020 Advance Directive Discussion due on 08/09/2023 Covid-19 Vaccine(2022- season) due on 04/09/2024 Influenza Vaccine(1) due on 04/09/2024 Mammogram Screening due on 06/10/2024 Depression Screening due on 11/28/2024 Colorectal Cancer Screening due on 05/07/2025 Diabetes Screening due on 12/05/2026 Lipid Screening due on 12/05/2028 Bone Density Screening Completed RSV Vaccine Completed Shingrix Vaccine Completed Pneumococcal Vaccine: 65+ Completed Hepatitis C Screening Discontinued ASSESSMENT/PLAN: 1. Non-recurrent acute serous otitis media of right ear - ICD9: 381.01, ICD10: H65.01 Will treat with flonase OTC daily for 1-2 weeks. Discussed ear popping exercises. Red flags for re-assessment reviewed with patient in detail. Juno Higginbotham MD [facility] 04-11-2024 History of Present illness Narrative Chief Complaint Patient presents with: Ear Problem: Right x 2 days pain HPI Tyler Casas is a 68 year old female who presents here today for Above Complaints. Patient complaining of right ear pain for the last 2 days. Described as constant aching pain, current 5/10, without radiation. Tried OTC ear drops without improvement in symptoms. Denies fever/chills, drainage, hearing loss, erythema, swelling, nasal congestion, rhinorrhea, swollen glands, sinus pain/pressure. Past medical history, appointments, medications, allergies reviewed. Previous Medical History PAST MEDICAL HISTORY No date: Obesity No date: Other and unspecified hyperlipidemia No date: Snoring Previous Surgical History PAST SURGICAL HISTORY No date: DELIVERY ONLY Comment: , low cervical 04/10/05: COLONOSCOPY FLX DX W/COLLJ SPEC WHEN PFRMD Comment: Colonoscopy 05-07-15: COLONOSCOPY FLX DX W/COLLJ SPEC WHEN PFRMD No date: TONSILLECTOMY & ADENOIDECTOMY <AGE 12 Comment: T/A (under age 11 years) Family History FAMILY HISTORY Problem Relation Age of Onset Hypertension Mother Coronary Artery Disease Mother Stroke Mother Alzheimer's Disease Father Coronary Artery Disease Father Hypertension Father Stroke Father Diabetes Sister Hypertension Sister Breast Cancer Sister 59 Colon Cancer Maternal Grandfather Patient Allergies ALLERGIES Allergen Reactions Cleocin [Clindamyci* Tetracycline Current Medications Current Outpatient Medications on File Prior to Visit Medication Sig simvastatin (ZOCOR) 80 mg tablet Take 1 tablet by mouth daily at bedtime. vit C,R-Ib-uiafh-lutein-zeaxan (PRESERVISION AREDS-2) 250-90-40-1 mg Take 1 capsule by mouth twice daily with meals. calcium carbonate 600 mg-cholecalciferol 400 units (CALCIUM 600 + D) 600 mg(1,500mg) -400 unit tab Take 1 tablet by mouth twice daily. multivitamins(MULTIPLE VITAMIN TAB) Take one(1) tablet daily. No current facility-administered medications on file prior to visit. Social History Social History Tobacco Use Smoking status: Never Smokeless tobacco: Never Vaping Use Vaping status: Never Used Substance Use Topics Alcohol use: No Drug use: No Review of Symptoms REVIEW OF SYSTEMS See HPI EXAM: BP 128/76 Pulse 62 Temp 36.4 C (97.6 F) Resp 16 Wt 79.4 kg (175 lb) LMP 02/13/2005 SpO2 97% BMI 30.62 kg/m General Appearance: Well appearing, alert, in no acute distress, well-hydrated, well nourished.. Skin: Skin color, texture, turgor normal, no suspicious rashes or lesions. Head: Normocephalic, no masses, lesions, tenderness or abnormalities. Eyes: Anicteric sclera. Pupils are equally round and reactive to light. Extraocular movements are intact. . Ears: Serous effusion of right TM without erythema. Left TM normal. Canals normal. Oropharynx: Lips, mucosa, and tongue normal, teeth and gums normal, oropharynx normal. Neck: Supple, no adenopathy; thyroid symmetric, normal size, no bruits. Lungs: Lungs clear to auscultation. No wheezing, rhonchi, rales.. Heart: RRR without murmur, gallop, or rubs. No ectopy. Health Maintenance List DTaP,Tdap,Td Vaccine(3 - Tdap) due on 10/02/2020 Advance Directive Discussion due on 08/09/2023 Covid-19 Vaccine( season) due on 04/09/2024 Influenza Vaccine(1) due on 04/09/2024 Mammogram Screening due on 06/10/2024 Depression Screening due on 11/28/2024 Colorectal Cancer Screening due on 05/07/2025 Diabetes Screening due on 12/05/2026 Lipid Screening due on 12/05/2028 Bone Density Screening Completed RSV Vaccine Completed Shingrix Vaccine Completed Pneumococcal Vaccine: 65+ Completed Hepatitis C Screening Discontinued ASSESSMENT/PLAN: 1. Non-recurrent acute serous otitis media of right ear - ICD9: 381.01, ICD10: H65.01 Will treat with flonase OTC daily for 1-2 weeks. Discussed ear popping exercises. Red flags for re-assessment reviewed with patient in detail. Juno Higginbotham MD documented in this encounter [facility] 12-07-2023 Telephone encounter Note Pt notified. Michelle Helton MA [facility] 12-07-2023 Miscellaneous Notes Pt notified. Michelle Helton MA ----- Message from Kendra Murphy APRN.CNP sent at 12/07/2023 8:46 AM EDT ----- Blood work within acceptable ranges. Continue current medications. Kendra Murphy APRN.CNP documented in this encounter [facility] 12-07-2023 Telephone encounter Note ----- Message from Kendra Murphy APRN.CNP sent at 12/07/2023 8:46 AM EDT ----- Blood work within acceptable ranges. Continue current medications. Kendra Murphy APRN.CNP [facility] 11-29-2023 Kendra Reddy APRN.CNP - 11/29/2023 2:14 PM EDT Screening schedule The following prevention plan is recommended: DTaP,Tdap,Td Vaccine(3 - Tdap) due on 10/02/2020 Advance Directive Discussion due on 08/09/2023 Behavioral Health Screening Never done WHAT YOU CAN DO TO PREVENT FALLS Many falls can be prevented. By making some changes, you can lower your chances of falling. Four things YOU can do to prevent falls for you* and your caregiver 1. Begin a regular exercise program Exercise is one of the most important ways to lower your chances of falling. It makes you stronger and helps you feel better. Exercises that improve balance and coordination (like Wade Chi) are the most helpful. Lack of exercise leads to weakness and increases your chances of falling. Ask your doctor or health care provider about the best type of exercise program for you. 2. Have your health care provider review your medicines Have your doctor or pharmacist review all the medicines you take, even [id number]-[id number] medicines. As you get older, the way medicines work in your body can change. Some medicines, or combinations of medicines, can make you sleepy or dizzy and can cause you to fall. 3. Have your vision checked Have your eyes checked by an eye doctor at least once a year. You may be wearing the wrong glasses or have a condition like glaucoma or cataracts that limits your vision. Poor vision can increase your chances of falling. 4. Make your home safer About half of all falls happen at home. To make your home safer: Remove things you can trip over (like papers, books, clothes, and shoes) from stairs and places where you walk. Remove small throw rugs or use double-sided tape to keep the rugs from slipping. Keep items you use often in cabinets you can reach easily without using a step stool. Have grab bars put in next to your toilet and in the tub or shower. Use non-slip mats in the bathtub and on shower floors. Improve the lighting in your home. As you get older, you need brighter lights to see well. Hang light-weight curtains or shades to reduce glare. Have handrails and lights put in on all staircases. Wear shoes both inside and outside the house. Avoid going barefoot or wearing slippers. For more information, contact: Centers for Disease Control and Prevention www.cdc.gov/injury * This information may not apply if you have certain medical conditions. documented in this encounter [facility] 11-29-2023 History of Present illness Narrative Images from the original note were not included. Tyler Casas is a 68 year old female here for a Medicare wellness visit. Medicare Health Risk Assessment General Health Excellent Exercise: Minutes/Day 30 minutes Exercise: Days/Week 7 days Alcohol: Daily Use none Alcohol: Drinks/Day N/A Alcohol: 6 or more drinks N/A Feel off balance No Concerns: Teeth/Dentures No Concerns: Sexual function No Troubled by feelings None of the above Frequency: Eating healthy diet Early every day ADLs requiring help None of the above Safety precautions in home/vehicle No- lacks grab bars in bathroom Smoke, vape, chews tobacco No Difficulty hearing No Difficulty seeing No Current Providers Specialists: Current care team: Patient Care Team: Juno Higginbotham MD as PCP - General (Family Medicine) Medical/Family history review Reviewed and updated problem list, medical/surgical/family/social history, medications, and allergies. Opioid use review Opioid Medications (last 90 days) No data to display Depression screening Depression Screening PHQ-2 Score 11/12/2022 0 Depression screening tool completed and reviewed. Based on score and interview, patient is not at risk for depression. Screening tool discussed with patient, and I recommended no further intervention at this time. Cognitive screening Cognitive screening reviewed and No further action needed (score 3-5). Functional Observation Was the patient's Timed Up & Go test unsteady or ? 12 seconds? No Advance Care Planning Has advanced Directives - needs to bring copy Measurements BP 138/76 Pulse 68 Resp 16 Wt 174 lb 6.4 oz (79.1kg) SpO2 98% LMP 02/13/2005 Vision Screening: Follows with optometry/ophthalmology Right: 20/20 Left: 20/ 20 Both: 20/20 ASSESSMENT/PLAN: 1. Medicare annual wellness visit, subsequent - ICD9: V70.0, ICD10: Z00.00 (primary diagnosis) - Counseled on healthy diet and regular exercise - Calcium intake with supplements or by diet of 1000 mg/day for under 50, 4492-6424 mg/day for 50+ - Discussed need and benefit for weight loss. BMI 30.52 kg/(m^2) - Follow up for annual exam in one year - HEMOGLOBIN A1C - COMPLETE BLOOD COUNT AND DIFFERENTIAL - COMPREHENSIVE METABOLIC PANEL - LIPID PANEL BASIC 11/29/2023 Patient presents with: Recheck SUBJECTIVE: This is a 68 year old that is here today for Above Complaints. Since last office visit has been in good health without ER visits or hospitalizations. No concerns today. HYPERLIPIDEMIA: Patient is taking medications: Yes. Patient is watching diet: Yes. Patient denies myalgias: Yes. Patient denies gi upset: Yes PAST MEDICAL HISTORY Diagnosis Date Obesity Other and unspecified hyperlipidemia Snoring ALLERGIES Cleocin [Clindamycin Hcl] and Tetracycline MEDICATIONS Current Outpatient Medications Medication Sig simvastatin (ZOCOR) 80 mg tablet Take 1 tablet by mouth daily at bedtime. vit C,D-Hb-wqgpv-lutein-zeaxan (PRESERVISION AREDS-2) 250-90-40-1 mg Take 1 capsule by mouth twice daily with meals. calcium carbonate 600 mg-cholecalciferol 400 units (CALCIUM 600 + D) 600 mg(1,500mg) -400 unit tab Take 1 tablet by mouth twice daily. multivitamins(MULTIPLE VITAMIN TAB) Take one(1) tablet daily. No current facility-administered medications for this visit. Medications and allergies reviewed by this provider. 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 OBJECTIVE: BP 138/76 Pulse 68 Resp 16 Wt 79.1 kg (174 lb 6.4 oz) LMP 02/13/2005 SpO2 98% BMI 30.52 kg/m . Vital signs reviewed by this provider. APPEARANCE Well appearing, alert, in no acute distress, well-hydrated, well nourished. EYES PERRLA, conjunctiva and sclera normal. EARS External ears normal, canals clear NECK Supple, no adenopathy; thyroid symmetric, normal size, no bruits HEART RRR with normal S1 and S2, no murmurs, no gallops, no JVD appreciated LUNG clear to auscultation. No wheezes, rhonchi or rales ABDOMEN bowel sounds normoactive, no bruits, soft, non-tender, non-distended EXTREMITIES Extremities normal, No deformities, No skin discoloration, and No edema SKIN Skin color, texture, turgor normal, no suspicious rashes or lesions to exposed skin DTaP,Tdap,Td Vaccine(3 - Tdap) due on 10/02/2020 Advance Directive Discussion due on 08/09/2023 Mammogram Screening due on 06/10/2024 Colorectal Cancer Screening due on 05/07/2025 Diabetes Screening due on 11/12/2025 Lipid Screening due on 04/16/2028 Bone Density Screening Completed Influenza Vaccine Completed Behavioral Health Screening Completed RSV Vaccine Completed Shingrix Vaccine Completed Covid-19 Vaccine Completed Pneumococcal Vaccine: 65+ Completed Hepatitis C Screening Discontinued .ASSESSMENT/PLAN: 1. Hyperlipidemia, mixed - ICD9: 272.2, ICD10: E78.2 (primary diagnosis) - Control undetermined, due for labs - Continue current medications - Counseled on healthy diet and regular exercise - Discussed need for and benefit of weight loss. BMI 30.52 kg/(m^2) - Follow up in 1 year, sooner should any other issues arise. - COMPREHENSIVE METABOLIC PANEL - LIPID PANEL BASIC Prescription instructions reviewed with patient as applicable. Patient advised if symptoms do not improve or if symptoms worsen sooner, to contact their primary care physician. Potential red flag symptoms discussed with the patient. Reviewed appropriate action plan to take if red flag symptoms occur. Patient agreeable to treatment plan. documented in this encounter [facility] 09-24-2023 Miscellaneous Notes Pharmacy verified in [facility] Patient has been identified by name and date of : Yes Patient aware RX will be sent to pharmacy. No need to notify patient. Patient phones for refill(s): Requested Prescriptions Pending Prescriptions Disp Refills simvastatin (ZOCOR) 80 mg tablet 90 tablet 3 Sig: Take 1 tablet by mouth daily at bedtime. Date of last office visit : 11/12/2022 Date of next office visit : 11/16/2023 Last 2 Encounter Wt Readings: Date: Wt: 11/12/2022 82.1 kg (181 lb) 11/10/2021 80.6 kg (177 lb 9.6 oz) Not applicable Please advise. Hawa Lopez Pss documented in this encounter [facility] 06-15-2023 Miscellaneous Notes Patient calls and notified of results and providers instructions. Patient verbalizes understanding. Maricarmen Chamorro RN Images from the original note were not included. Message left for pt to call PCP office and ask for a nurse, for result below. Pat Song RN Result Notes Juno Higginbotham MD 06/12/2023 8:00 AM EDT Negative mammogram. Repeat in 1 year. documented in this encounter [facility] 06-11-2023 Miscellaneous Notes June 11, 2023 PID: [id number] Tyler Casas [address] [place] [id number] Dear Ms. Casas, We are pleased to inform you that the results of your recent breast imaging exam on 06/10/2023 are normal. Your mammogram demonstrates that you have dense breast tissue, which could hide abnormalities. Dense breast tissue, in and of itself, is a relatively common condition. Therefore, this information is not provided to cause undue concern; rather, it is to raise your awareness and promote discussion with your health care provider regarding the presence of dense breast tissue in addition to other risk factors. Early detection of cancer is very important. We also understand recommendations regarding breast cancer screening are controversial. Please discuss with your primary care provider which strategy is best for you and whether a mammogram is right for you. Your imaging studies and report will be kept on file at [facility] as part of your permanent medical record and are available for your continuing care. Thank you for allowing us to help in meeting your health care needs. Sincerely, Dr. Zuleta Interpreting Radiologist [facility] (Normal over 40) documented in this encounter [facility] 06-10-2023 History of Present illness Narrative Radiology Service Progress Note PATIENT NAME: Tyler Casas DATE OF SERVICE: June 10, 2023 TIME: 7:28 AM PATIENT IDENTITY VERIFICATION COMPLETED USING TWO (2) IDENTIFIERS: Name and Date of confirmed by patient verbally. FALL SCREENING: Has the patient had 2 falls in the last year or 1 fall with injury or currently using an Ambulatory Assistive Device (Walker, Cane, Wheelchair, Crutches, etc.)? No PATIENT GENDER DATA: Female. status: : No status: NO. PATIENT RELEVANT IMPLANT DATA REVIEWED: Not Applicable RADIOLOGY DEPARTMENT: Mammography PERIPHERAL IV DATA: Not applicable SIGNED BY: Amy Henderson Astrid Ngozi June 10, 2023 7:28 AM documented in this encounter [facility] 12-01-2022 Miscellaneous Notes Patient returned call and given provider's message below with verbalized understanding. Message left for patient to call office back and ask for triage nurse for update. Tyra Yeager LPN Please call patient and let her know her bone density shows osteopenia. Should be taking 1200 mg of calcium along with 2000 units of vitamin D daily. Recommend weight bearing exercise such as walking, running, jogging and light weight lifting. Kendra Murphy APRN.GRETA documented in this encounter [facility] 11-30-2022 History of Present illness Narrative Radiology Service Progress Note PATIENT NAME: Tyler Casas DATE OF SERVICE: November 30, 2022 TIME: 11:28 AM PATIENT IDENTITY VERIFICATION COMPLETED USING TWO (2) IDENTIFIERS: Name and Date of confirmed by patient verbally. FALL SCREENING: Has the patient had 2 falls in the last year or 1 fall with injury or currently using an Ambulatory Assistive Device (Walker, Cane, Wheelchair, Crutches, etc.)? No PATIENT GENDER DATA: Female. status: : No status: NO. PATIENT RELEVANT IMPLANT DATA REVIEWED: Not Applicable RADIOLOGY DEPARTMENT: Bone Density PERIPHERAL IV DATA: Not applicable SIGNED BY: RT Segundo(R) November 30, 2022 11:28 AM documented in this encounter [facility] 11-17-2022 Miscellaneous Notes Phoned patient and updated her of provider's message. She voiced understanding. Rx sent as requested. Labs ordered for 3 month recheck. Pt called and is notified of providers results and instructions. Pt voices understanding. Pt reports ok with increasing medication. Rowena Washington RN Images from the original note were not included. Message left for patient to call back for results. Please see Dr. Higginbotham's response copied below as well as Kendra Murphy's response below as well. Pat Song RN COPIED: Result Notes Juno Higginbotham MD 11/17/2022 9:33 AM EDT Normal labs aside from high cholesterol. Total cholesterol is up compared to last check 1 year ago. If she has been taking simvastatin as prescribed, would recommend increasing dosage to 80 mg and recheck in 3-6 months. Will send rx if agreeable. The 10-year ASCVD risk score (Katie KAMINSKI, et al., 2019) is: 6.9% Values used to calculate the score: Age: 67 years Sex: Female Is Non- : No Diabetic: No Tobacco smoker: No Systolic Blood Pressure: 126 mmHg Is BP treated: No HDL Cholesterol: 76 mg/dL Total Cholesterol: 207 mg/dL Message left for patient to call office back and ask for a triage nurse for update. Tyra Yeager LPN Please call patient and let her know her cholesterol has increased mildly, possible due to not fasting for recent labs. Continue current medication as well as eat low saturated fat diet and exercise at least 150 minutes of week. The rest of her blood work is in acceptable ranges. Kendra Murphy APRN.GRETA documented in this encounter [facility] 11-12-2022 Instructions Juno Higginbotham MD - 11/12/2022 2:55 PM EDT BONE MINERAL DENSITY PATIENT INSTRUCTIONS ======= Bone mineral density testing measures the amount of calcium in certain parts of your bones. This information determines how strong your bones are. The test is used to detect osteoporosis, a disease in which the bone's mineral content and density are low, increasing a person's risk of fractures. The lumbar spine (lower back) and the hip are the skeletal sites usually examined. For the test, remember that: 1. You cannot take this test if you are . 2. Eat a normal diet on the day of the test. 3. Take your medications as you normally would. 4. DO NOT take calcium supplements (such as Tums) for 24 hours before the test. 5. On the day of the test, leave valuables (jewelry or credit cards) at home. 6. The test should be performed prior to oral, rectal or IV contrast studies, or at least 7 days after any of these studies. For the test, you may be asked to wear a hospital gown. You will lie on your back, on a padded table, in a comfortable position. Generally, you can resume your usual activities immediately. documented in this encounter [facility] 11-12-2022 History of Present illness Narrative Medicare Yearly Visit Medical B eligibilty date 2019 Patient here today for medicare wellness exam. Has been in good health without hospitalizations or ER visits. Denies falls in the last year. Due for DXA, screening mammogram, and pneumococcal vaccination today. PAST MEDICAL HISTORY Diagnosis Date Other and unspecified hyperlipidemia Snoring PAST SURGICAL HISTORY Procedure Laterality Date DELIVERY ONLY , low cervical COLONOSCOPY FLX DX W/COLLJ SPEC WHEN PFRMD 04/10/05 Colonoscopy COLONOSCOPY FLX DX W/COLLJ SPEC WHEN PFRMD 05-07-15 TONSILLECTOMY & ADENOIDECTOMY <AGE 12 T/A (under age 12 years) ALLERGIES: Cleocin [Clindamycin Hcl] and Tetracycline Medications reviewed: Yes FAMILY HISTORY Problem Relation Age of Onset Hypertension Mother Coronary Artery Disease Mother Stroke Mother Alzheimer's Disease Father Coronary Artery Disease Father Hypertension Father Stroke Father Diabetes Sister Hypertension Sister Breast Cancer Sister 59 Colon Cancer Maternal Grandfather SOCIAL HISTORY: Social History Tobacco Use Smoking status: Never Smokeless tobacco: Never Vaping Use Vaping Use: Never used Substance Use Topics Alcohol use: No Drug use: No Tyler denies regular aerobic exercise. She watches her diet for sodium, low fat and low cholesterol some of the time. List of current specialists seen: Optho: Dr. Varma Dermatology: Dr. Cage End of Live Planning discussed including patients advanced directive wishes: Yes Patient states she has living will and DPOA, just has to bring in records. FULL CODE. I am willing to follow Tyler's advanced directives. PHQ-2 / Depression screen She in the past two weeks denies having felt down, depressed, hopeless, or with little interest or pleasure in doing things. Functional Ability/Safety Screen 1. Was the patient's timed Up and Go test unsteady or longer than 30 seconds? No 2. Does the patient need help with the phone, transportation, shopping,preparing meals, housework, laundry, medications or managing money? No 3. Does your home have rugs in the hallway, lack of grab bars in the bathroom-Yes, lack of handrails on the stairs or have poor lighting? No Hearing Evaluation: normal PHYSICAL EXAM BP 126/76 Pulse 61 Resp 16 Ht 161 cm (5' 3.39) Wt 82.1 kg (181 lb) LMP 02/13/2005 SpO2 96% BMI 31.67 kg/m Alert and oriented X 3: YES Mini co/5 Body mass index is 31.67 kg/m . Visual acuity: OD: 20/15 OS: 20/ 20 OU: 20/13 With corrected vision General Appearance: Well appearing, alert, in no acute distress, well-hydrated, well nourished.. Lungs: Lungs clear to auscultation. No wheezing, rhonchi, rales.. Heart: RRR without murmur, gallop, or rubs. No ectopy. Component Latest Ref Rng & Units 11/11/2021 Protein, Total 6.3 - 8.0 g/dL 7.5 Albumin 3.9 - 4.9 g/dL 4.8 Calcium 8.5 - 10.2 mg/dL 9.9 Bilirubin, Total 0.2 - 1.3 mg/dL 0.6 Alkaline Phosphatase 34 - 123 U/L 97 AST 13 - 35 U/L 23 ALT 7 - 38 U/L 16 Glucose 74 - 99 mg/dL 89 BUN 7 - 21 mg/dL 10 Creatinine 0.58 - 0.96 mg/dL 0.56 (L) Sodium 136 - 144 mmol/L 141 Potassium 3.7 - 5.1 mmol/L 4.0 Chloride 97 - 105 mmol/L 103 CO2 22 - 30 mmol/L 30 Anion Gap 9 - 18 mmol/L 8 (L) eGFR >=60 mL/min/1.73m 100 WBC 3.70 - 11.00 k/uL 4.45 RBC 3.90 - 5.20 m/uL 4.78 Hemoglobin 11.5 - 15.5 g/dL 15.2 Hematocrit 36.0 - 46.0 % 47.1 (H) MCV 80.0 - 100.0 fL 98.5 MCH 26.0 - 34.0 pg 31.8 MCHC 30.5 - 36.0 g/dL 32.3 RDW-CV 11.5 - 15.0 % 12.8 Platelet Count 150 - 400 k/uL 321 MPV 9.0 - 12.7 fL 8.3 (L) Absolute nRBC <0.01 k/uL <0.01 Cholesterol, Total <200 mg/dL 191 Triglyceride <150 mg/dL 79 HDL Cholesterol >39 mg/dL 71 Non HDL Cholesterol <130 mg/dL 120 Fasting Time hrs 14 VLDL Cholesterol <30 mg/dL 16 TC:HDL Ratio <5.10 2.69 LDL Cholesterol <100 mg/dL 104 (H) LDL:HDL Ratio <2.54 1.46 ASSESSMENT/PLAN: ASSESSMENT/PLAN: 1. Medicare annual wellness visit, subsequent - ICD9: V70.0, ICD10: Z00.00 (primary diagnosis)67 year old female The following prevention plan was discussed during the office visit and provided to the patient: - Counseled on healthy diet and regular exercise - Discussed need for and benefit of weight loss. BMI 31.67 kg/(m^2) - Fall avoidance - Depression screening - CBC + DIFF - COMP METABOLIC PANEL - HGB A1C - LIPID PANEL, NONFASTING 2. Hyperlipidemia LDL goal <100 - ICD9: 272.4, ICD10: E78.5 - good control - Continue current medication. - Encouraged following a low fat, low cholesterol diet. - Discussed the benefits of regular aerobic exercise and weight loss. 3. Osteopenia, senile - ICD9: 733.90, ICD10: M85.80 - set up for BMD AP Spine and Hip Unilateral - Reviewed the need for Calcium and Vitamin D supplements and weight bearing exercise as tolerated - DXA-AXIAL SKELETON 4. Asymptomatic menopausal state - ICD9: V49.81, ICD10: Z78.0 - DXA-AXIAL SKELETON 5. Screening mammogram for breast cancer - ICD9: V76.12, ICD10: Z12.31 - Set up for mammogram, yearly mammogram recommended - [place] SCREENING 6. Class 1 obesity due to excess calories without serious comorbidity with body mass index (BMI) of 31.0 to 31.9 in adult - ICD9: 278.00, V85.31, ICD10: E66.09, Z68.31 Weight increasing - Behavioral intervention 7. Encounter for immunization - ICD9: V03.89, ICD10: Z23 - PNEUMOCOCCAL VACCINE (PNEUMOVAX 23) Juno Higginbotham MD documented in this encounter [facility] 07-06-2022 Miscellaneous Notes Patient has been identified by name and date of : Yes Requested Prescriptions Pending Prescriptions Disp Refills simvastatin (ZOCOR) 40 mg tablet 90 tablet 3 Sig: Take 1 tablet by mouth daily at bedtime. BERNICE-11/10/21 Labs-11/11/21 NOV-none med filled 01/12/22 RX INSTRUCTIONS: Patient aware RX will be sent to pharmacy. No need to notify patient. Sera Mendoza Pss documented in this encounter [facility] 06-10-2022 Miscellaneous Notes Pt mailed letter notifying her of normal mammogram results and recommendation from Provider. Saritha Garcia Ma Message left for patient to call back for update. Tyra Yeager LPN Please call patient and let her know her mammogram shows There is no mammographic evidence of malignancy. A 1 year screening mammogram is recommended. Kendra Murphy APRN.GRETA documented in this encounter [facility] 06-09-2022 Miscellaneous Notes PATIENT NOTIFIED OF SAME. Phoned patient and message left for her spouse to return call for result update. ----- Message from Juno Higginbotham MD sent at 06/09/2022 9:03 AM EDT ----- Negative mammogram. Repeat in 1 year. documented in this encounter [facility] 06-09-2022 Miscellaneous Notes June 09, 2022 PID: [id number] Tyler Casas [address] [place], [place] [id number] Dear Ms. Casas, We are pleased to inform you that the results of your recent breast imaging exam on 06/08/2022 are normal. Your mammogram demonstrates that you have dense breast tissue, which could hide abnormalities. Dense breast tissue, in and of itself, is a relatively common condition. Therefore, this information is not provided to cause undue concern; rather, it is to raise your awareness and promote discussion with your health care provider regarding the presence of dense breast tissue in addition to other risk factors. Early detection of cancer is very important. We also understand recommendations regarding breast cancer screening are controversial. Please discuss with your primary care provider which strategy is best for you and whether a mammogram is right for you. Your imaging studies and report will be kept on file at [facility] as part of your permanent medical record and are available for your continuing care. Thank you for allowing us to help in meeting your health care needs. Sincerely, Dr. Aguirre Interpreting Radiologist [facility] (Normal over 40) documented in this encounter [facility] 06-08-2022 History of Present illness Narrative Radiology Service Progress Note PATIENT NAME: Tyler Casas DATE OF SERVICE: June 08, 2022 TIME: 8:44 AM PATIENT IDENTITY VERIFICATION COMPLETED USING TWO (2) IDENTIFIERS: Name and Date of confirmed by patient verbally. FALL SCREENING: Has the patient had 2 falls in the last year or 1 fall with injury or currently using an Ambulatory Assistive Device (Walker, Cane, Wheelchair, Crutches, etc.)? No PATIENT GENDER DATA: Female. status: : No status: NO. PATIENT RELEVANT IMPLANT DATA REVIEWED: Not Applicable RADIOLOGY DEPARTMENT: Mammography PERIPHERAL IV DATA: Not applicable SIGNED BY: RT Lora(R) June 08, 2022 8:44 AM documented in this encounter [facility] 02-20-2022 Miscellaneous Notes Patient notified, voices understanding. Tyra Yeager LPN Looks like she is not due for mammogram until May. Future order placed. Patient calling asking for a mammogram order to be placed. Please advise and call patient to schedule. documented in this encounter [facility] 01-10-2022 Miscellaneous Notes Patient has been identified by name and date of : Yes Last office visit in this department: 06/01/2012 RX INSTRUCTIONS: Patient aware RX will be sent to pharmacy. No need to notify patient. Patient phones requesting refills as follows: Pending Prescriptions Disp Refills SIMVASTATIN 40 MG TABLET 90 tablet 3 Sig: Take 1 tablet by mouth daily at bedtime. KIM: No Please review and advise. DONTA Hu documented in this encounter [facility] 06-07-2012 History of Past i llness Narrative Problem Noted Date Resolved Date Fracture of fibula, distal, right, closed 201112/06/2014 Umbilical hernia without mention of obstruction or gangrene 07/17/2010 12/06/2014 documented as of this encounter (statuses as of 01/12/2022) [facility] History of Past illness Narrative* Problem Noted Date Resolved Date Fracture of fibula, distal, right, closed 201112/06/2014 Umbilical hernia without mention of obstruction or gangrene 07/17/2010 12/06/2014 documented as of this encounter (statuses as of 02/20/2022) [facility] History of Past illness Narrative* Problem Noted Date Resolved Date Fracture of fibula, distal, right, closed 201112/06/2014 Umbilical hernia without mention of obstruction or gangrene 07/17/2010 12/06/2014 documented as of this encounter (statuses as of 06/09/2022) [facility] History of Past illness Narrative* Problem Noted Date Resolved Date Fracture of fibula, distal, right, closed 201112/06/2014 Umbilical hernia without mention of obstruction or gangrene 07/17/2010 12/06/2014 documented as of this encounter (statuses as of 06/10/2022) [facility] History of Past illness Narrative* Problem Noted Date Resolved Date Fracture of fibula, distal, right, closed 201112/06/2014 Umbilical hernia without mention of obstruction or gangrene 07/17/2010 12/06/2014 documented as of this encounter (statuses as of 06/11/2022) [facility] History of Past illness Narrative* Problem Noted Date Resolved Date Fracture of fibula, distal, right, closed 201112/06/2014 Umbilical hernia without mention of obstruction or gangrene 07/17/2010 12/06/2014 documented as of this encounter (statuses as of 07/06/2022) [facility] History of Past illness Narrative* Problem Noted Date Resolved Date Fracture of fibula, distal, right, closed 201112/06/2014 Umbilical hernia without mention of obstruction or gangrene 07/17/2010 12/06/2014 documented as of this encounter (statuses as of 11/15/2022) [facility] of Past illness Narrative* Problem Noted Date Resolved Date Fracture of fibula, distal, right, closed 201112/06/2014 Umbilical hernia without mention of obstruction or gangrene 07/17/2010 12/06/2014 documented as of this encounter (statuses as of 11/18/2022) [facility] History of Past illness Narrative* Problem Noted Date Resolved Date Fracture of fibula, distal, right, closed 201112/06/2014 Umbilical hernia without mention of obstruction or gangrene 07/17/2010 12/06/2014 documented as of this encounter (statuses as of 11/18/2022) [facility] History of Past illness Narrative* Problem Noted Date Resolved Date Fracture of fibula, distal, right, closed 201112/06/2014 Umbilical hernia without mention of obstruction or gangrene 07/17/2010 12/06/2014 documented as of this encounter (statuses as of 12/02/2022) [facility] History of Past illness Narrative* Problem Noted Date Diagnosed Date Resolved Date Fracture of fibula, distal, right, closed 06/07/2012 12/06/2014 Umbilical hernia without men tion of obstruction or gangrene 07/17/2010 12/06/2014 documented as of this encounter (statuses as of 06/13/2023) [facility] of Past illness Narrative* Problem Noted Date Diagnosed Date Resolved Date Fracture of fibula, distal, right, closed 06/07/2012 12/06/2014 Umbilical hernia without men tion of obstruction or gangrene 07/17/2010 12/06/2014 documented as of this encounter (statuses as of 06/13/2023) [facility] History of Past illness Narrative* Problem Noted Date Diagnosed Date Resolved Date Fracture of fibula, distal, right, closed 06/07/2012 12/06/2014 Umbilical hernia without men tion of obstruction or gangrene 07/17/2010 12/06/2014 documented as of this encounter (statuses as of 06/15/2023) [facility] of Past illness Narrative* Problem Noted Date Diagnosed Date Resolved Date Fracture of fibula, distal, right, closed 06/07/2012 12/06/2014 Umbilical hernia without men tion of obstruction or gangrene 07/17/2010 12/06/2014 documented as of this encounter (statuses as of 06/15/2023) [facility] History of Past illness Narrative* Problem Noted Date Diagnosed Date Resolved Date Fracture of fibula, distal, right, closed 06/07/2012 12/06/2014 Umbilical hernia without men tion of obstruction or gangrene 07/17/2010 12/06/2014 documented as of this encounter (statuses as of 06/16/2023) [facility] History of Past illness Narrative* Problem Noted Date Diagnosed Date Resolved Date Fracture of fibula, distal, right, closed 06/07/2012 12/06/2014 Umbilical hernia without men tion of obstruction or gangrene 07/17/2010 12/06/2014 documented as of this encounter (statuses as of 09/27/2023) [facility] Diagnosis Screening mammogram, encounter for- Primary [facility] Diagnosis Medicare annual wellness visit, subsequent- Primary Routine general medical examination at a health care facility Hyperlipidemia LDL goal <100 Other and unspecified hyperlipidemia Osteopenia, senile Disorder of bone and cartilage, unspecified Asymptomatic menopausal state Asymptomatic postmenopausal status (age-related) (natural) Screening mammogram for breast cancer Class 1 obesity due to excess calories without serious comorbidity with body mass index (BMI) of 31.0 to 31.9 in adult Encounter for immunization Need for other specified prophylactic vaccination against single bacterial disease [facility] Hyperlipidemia, mixed- Primary Mixed hyperlipidemia [facility] Diagnosis Osteopenia, senile Disorder of bone and cartilage, unspecified Asymptomatic menopausal state Asymptomatic postmenopausal status (age-related) (natural) [facility] Diagnosis [facility]ening [facility], encounter for [facility] Diagnosis Screening mammogram for breast cancer [facility] Diagnosis Medicare annual wellness visit, subsequent- Primary Routine general medical examination at a health care facility Hyperlipidemia, mixed Mixed hyperlipidemia [facility]* Diagnosis Non-recurrent acute serous otitis media of right ear- Primary [facility]* Diagnosis Encounter for screening mammogram for breast cancer [facility] Diagnosis Neck swelling- Primary Swelling, mass, or lump in head and neck [facility] Diagnosis Neck swelling Swelling, mass, or lump in head and neck [facility] Diagnosis Neck swelling- Primary Swelling, mass, or lump in head and neck Neck swelling Swelling, mass, or lump in head and neck documented in this encounter [facility] note* Diagnosis Localized enlarged lymph nodes- Primary Enlargement of lymph nodes Neck swelling Swelling, mass, or lump in head and neck documented in this encounter [facility] note* Diagnosis Localized enlarged lymph nodes Enlargement of lymph nodes Neck swelling Swelling, mass, or lump in head and neck [facility] Diagnosis Chronic insomnia- Primary Insomnia, unspecified Elevated BP without diagnosis of hypertension documented in this encounter [facility] note* Diagnosis Hypertension, essential- Primary Unspecified essential hypertension documented in this encounter [facility] note* Diagnosis Memory loss- Primary Chronic insomnia Insomnia, unspecified Claustrophobia Other isolated or specific phobias Hyperlipidemia, mixed Mixed hyperlipidemia Medication management Encounter for long-term (current) use of other medications Screening for diabetes mellitus documented in this encounter [facility] note* Diagnosis Hypertension, essential Unspecified essential hypertension documented in this encounter [facility] note* Diagnosis Memory loss documented in this encounter [facility] note* Diagnosis Hypertension, essential- Primary Unspecified essential hypertension Anxiety Anxiety state, unspecified documented in this encounter [facility] note* Diagnosis Chronic insomnia Insomnia, unspecified Hypertension, essential Unspecified essential hypertension documented in this encounter [facility] note* Diagnosis Acute otitis externa of both ears, unspecified type- Primary documented in this encounter [facility] note* Diagnosis Medicare annual wellness visit, subsequent- Primary Routine general medical examination at a health care facility Screening for depression Encounter for immunization Need for other specified prophylactic vaccination against single bacterial disease Hyperlipidemia, mixed Mixed hyperlipidemia Hypertension, essential Unspecified essential hypertension Advance directive discussed with patient Other specified counseling Anxiety Anxiety state, unspecified documented in this encounter [facility] note* Diagnosis Anxiety Anxiety state, unspecified [facility] Diagnosis Anxiety Anxiety state, unspecified documented in this encounter [facility] note* Diagnosis Chronic insomnia Insomnia, unspecified [facility] Diagnosis Cellulitis and abscess of leg, except foot- Primary documented in this encounter [facility] note* Diagnosis Cellulitis of skin- Primary Cellulitis and abscess of unspecified site documented in this encounter [facility] for referral (narrative)* Diagnostic Procedure Only (Routine) - Pending Review Specialty Diagnoses / Procedures Referred By Ubaldo t Referred To Contact [facility] Diagnoses Screening mammogram, encounter for Procedures YUDY SCREENING W LAURA SCREENING DIGITAL BREAST TOMOSYNTHESIS BI SCREENING MAMMOGRAPHY BI 2-VIEW BREAST INC Juno Morton MD [address] [place] [address] [facility] [address] [place] [address] Referral ID Status Reason Start Date Expiration Date Visits Requested Visits Authorized [id number] Pending Review Auto-Generat ed Referral 03/22/2023 1 1 [facility] for referral (narrative)* Diagnostic Procedure Only (Routine) - Pending Review Specialty Diagnoses / Procedures Referred By Ubaldo rodriguez Referred To Contact [facility] Diagnoses Screening mammogram for breast cancer Procedures YUDY SCREENING SCREENING MAMMOGRAPHY BI 2-VIEW BREAST INC Juno Morton MD [address] [place] [address] [facility] [address] [place] [address] Referral ID Status Reason Start Date Expiration Date Visits Requested Visits Authorized [id number] Pending Review Auto-Generat ed Referral 11/12/2022 12/12/2023 1 1 T [facility] for referral (narrative)* Diagnostic Procedure Only (Routine) - Closed Specialty Diagnoses / Procedures Referred By Ubaldo t Referred To Contact [facility] Diagnoses Screening mammogram, encounter for Procedures YUDY SCREENING W LAURA SCREENING DIGITAL BREAST TOMOSYNTHESIS BI SCREENING MAMMOGRAPHY BI 2-VIEW BREAST INC Juno Morton MD [address] [place] [address] [facility] [address] [place] [address] Referral ID Status Reason Start Date Expiration Date V isits Requested Visits Authorized [id number] Closed Auto-Generate d Referral 05/23/2022 03/22/2023 1 1 [facility] for referral (narrative)* Diagnostic Procedure Only (Routine) - Closed Specialty Diagnoses / Procedures Referred By Ubaldo rodriguez Referred To Contact [facility] Diagnoses Screening mammogram for breast cancer Procedures YUDY SCREENING SCREENING MAMMOGRAPHY BI 2-VIEW BREAST INC Juno Morton MD [address] [place] [address] [facility] [address] [place] [address] Referral ID Status Reason Start Date Expiration Date V isits Requested Visits Authorized [id number] Closed Auto-Generate d Referral 11/12/2022 12/12/2023 1 1 [facility] for referral (narrative)* Diagnostic Procedure Only (Routine) - New Request Specialty Diagnoses / Procedures Referred By Ubaldo rodriguez Referred To Contact [facility] Diagnoses Encounter for screening mammogram for breast cancer Procedures YUDY SCREENING W LAURA SCREENING DIGITAL BREAST TOMOSYNTHESIS BI SCREENING MAMMOGRAPHY BI 2-VIEW BREAST INC Juno Morton MD [address] [place] [address] [facility] [address] [place] [address] Referral ID Status Reason Start Date Expiration Date Visits Requested Visits Authorized [id number] New Request Auto-Generat ed Referral 08/25/2025 1 1 [facility] for visit Narrative* Diagnostic Procedure Only (Routine) - Closed Specialty Diagnoses / Procedures Referred By Ubaldo rodriguez Referred To Contact [facility] Diagnoses Screening mammogram, encounter for Procedures YUDY SCREENING W LAURA SCREENING DIGITAL BREAST TOMOSYNTHESIS BI SCREENING MAMMOGRAPHY BI 2-VIEW BREAST INC Juno Morton MD [address] [place] [address] [facility] [address] [place] [address] Referral ID Status Reason Start Date Expiration Date V isits Requested Visits Authorized [id number] Closed Auto-Generate d Referral 05/23/2022 03/22/2023 1 1 [facility] for visit Narrative* Diagnostic Procedure Only (Routine) - Closed Specialty Diagnoses / Procedures Referred By Ubaldo rodriguez Referred To Contact [facility] Diagnoses Screening mammogram for breast cancer Procedures YUDY SCREENING SCREENING MAMMOGRAPHY BI 2-VIEW BREAST INC Juno Morton MD [address] [place] [address] [facility] [address] [place] [address] Referral ID Status Reason Start Date Expiration Date V isits Requested Visits Authorized [id number] Closed Auto-Generate d Referral 11/12/2022 12/12/2023 1 1 [facility] for visit Narrative* MRI/CT (Urgent) - Closed Specialty Diagnoses / Procedures Referred By Ubaldo rodriguez Referred To Contact [facility] Diagnoses Memory loss Procedures MRI BRAIN WO IVCON MRI BRAIN BRAIN STEM W/O CONTRAST MATERIAL Nai Mendoza APRN.BD [employer] TE[employer]ER [address] [id number] Phone: tel: fax: [place] [id number] Referral ID Status Reason Start Date Expiration Date V isits Requested Visits Authorized [id number] Closed Auto-Generate d Referral 12/07/2024 01/06/2026 1 1 [facility] Chief Complaint and Reason for Visit Chief Complaint PFIZER VACCINE Assessments No Assessments Information Available Summary Purpose Family History No Family History Records FoundNo Family History Records Found Advance Directives No Advanced Directives Records FoundNo Advanced Directives Records Found Additional Source Comments Source Comments (unrecognize d section and content) In the event this informatio n is protected by the Federal Confidentiality of Alcohol and Drug Abuse Patient Records regulations: The Federal rules restrict any use of the information to criminally investigate or prosecute any alcohol or drug abuse patient.[facility] the event this information is protected by the Federal Confidentiality of Alcohol and Drug Abuse Patient Records regulations: The Federal rules restrict any use of the information to criminally investigate or prosecute any alcohol or drug abuse patient.[facility] the event this information is protected by the Federal Confidentiality of Alcohol and Drug Abuse Patient Records regulations: The Federal rules restrict any use of the information to criminally investigate or prosecute any alcohol or drug abuse patient.[facility] HospitalIn the event this information is protected by the Federal Confidentiality of Alcohol and Drug Abuse Patient Records regulations: The Federal rules restrict any use of the information to criminally investigate or prosecute any alcohol or drug abuse patient.[facility] HospitalIn the event this information is protected by the Federal Confidentiality of Alcohol and Drug Abuse Patient Records regulations: The Federal rules restrict any use of the information to criminally investigate or prosecute any alcohol or drug abuse patient.[facility] HospitalIn the event this information is protected by the Federal Confidentiality of Alcohol and Drug Abuse Patient Records regulations: The Federal rules restrict any use of the information to criminally investigate or prosecute any alcohol or drug abuse patient.[facility] HospitalIn the event this information is protected by the Federal Confidentiality of Alcohol and Drug Abuse Patient Records regulations: The Federal rules restrict any use of the information to criminally investigate or prosecute any alcohol or drug abuse patient.[facility] HospitalIn the event this information is protected by the Federal Confidentiality of Alcohol and Drug Abuse Patient Records regulations: The Federal rules restrict any use of the information to criminally investigate or prosecute any alcohol or drug abuse patient.[facility] HospitalIn the event this information is protected by the Federal Confidentiality of Alcohol and Drug Abuse Patient Records regulations: The Federal rules restrict any use of the information to criminally investigate or prosecute any alcohol or drug abuse patient.[facility] HospitalIn the event this information is protected by the Federal Confidentiality of Alcohol and Drug Abuse Patient Records regulations: The Federal rules restrict any use of the information to criminally investigate or prosecute any alcohol or drug abuse patient.[facility] HospitalIn the event this information is protected by the Federal Confidentiality of Alcohol and Drug Abuse Patient Records regulations: The Federal rules restrict any use of the information to criminally investigate or prosecute any alcohol or drug abuse patient.[facility] HospitalIn the event this information is protected by the Federal Confidentiality of Alcohol and Drug Abuse Patient Records regulations: The Federal rules restrict any use of the information to criminally investigate or prosecute any alcohol or drug abuse patient.[facility] HospitalIn the event this information is protected by the Federal Confidentiality of Alcohol and Drug Abuse Patient Records regulations: The Federal rules restrict any use of the information to criminally investigate or prosecute any alcohol or drug abuse patient.[facility] HospitalIn the event this information is protected by the Federal Confidentiality of Alcohol and Drug Abuse Patient Records regulations: The Federal rules restrict any use of the information to criminally investigate or prosecute any alcohol or drug abuse patient.[facility] HospitalIn the event this information is protected by the Federal Confidentiality of Alcohol and Drug Abuse Patient Records regulations: The Federal rules restrict any use of the information to criminally investigate or prosecute any alcohol or drug abuse patient.[facility] HospitalIn the event this information is protected by the Federal Confidentiality of Alcohol and Drug Abuse Patient Records regulations: The Federal rules restrict any use of the information to criminally investigate or prosecute any alcohol or drug abuse patient.[facility] HospitalIn the event this information is protected by the Federal Confidentiality of Alcohol and Drug Abuse Patient Records regulations: The Federal rules restrict any use of the information to criminally investigate or prosecute any alcohol or drug abuse patient.[facility] HospitalIn the event this information is protected by the Federal Confidentiality of Alcohol and Drug Abuse Patient Records regulations: The Federal rules restrict any use of the information to criminally investigate or prosecute any alcohol or drug abuse patient.[facility] HospitalIn the event this information is protected by the Federal Confidentiality of Alcohol and Drug Abuse Patient Records regulations: The Federal rules restrict any use of the information to criminally investigate or prosecute any alcohol or drug abuse patient.[facility] HospitalIn the event this information is protected by the Federal Confidentiality of Alcohol and Drug Abuse Patient Records regulations: The Federal rules restrict any use of the information to criminally investigate or prosecute any alcohol or drug abuse patient.[facility] HospitalIn the event this information is protected by the Federal Confidentiality of Alcohol and Drug Abuse Patient Records regulations: The Federal rules restrict any use of the information to criminally investigate or prosecute any alcohol or drug abuse patient.[facility] HospitalIn the event this information is protected by the Federal Confidentiality of Alcohol and Drug Abuse Patient Records regulations: The Federal rules restrict any use of the information to criminally investigate or prosecute any alcohol or drug abuse patient.[facility] HospitalIn the event this information is protected by the Federal Confidentiality of Alcohol and Drug Abuse Patient Records regulations: The Federal rules restrict any use of the information to criminally investigate or prosecute any alcohol or drug abuse patient.[facility] HospitalIn the event this information is protected by the Federal Confidentiality of Alcohol and Drug Abuse Patient Records regulations: The Federal rules restrict any use of the information to criminally investigate or prosecute any alcohol or drug abuse patient.[facility] HospitalIn the event this information is protected by the Federal Confidentiality of Alcohol and Drug Abuse Patient Records regulations: The Federal rules restrict any use of the information to criminally investigate or prosecute any alcohol or drug abuse patient.[facility] HospitalIn the event this information is protected by the Federal Confidentiality of Alcohol and Drug Abuse Patient Records regulations: The Federal rules restrict any use of the information to criminally investigate or prosecute any alcohol or drug abuse patient.[facility] HospitalIn the event this information is protected by the Federal Confidentiality of Alcohol and Drug Abuse Patient Records regulations: The Federal rules restrict any use of the information to criminally investigate or prosecute any alcohol or drug abuse patient.[facility] HospitalIn the event this information is protected by the Federal Confidentiality of Alcohol and Drug Abuse Patient Records regulations: The Federal rules restrict any use of the information to criminally investigate or prosecute any alcohol or drug abuse patient.[facility] HospitalIn the event this information is protected by the Federal Confidentiality of Alcohol and Drug Abuse Patient Records regulations: The Federal rules restrict any use of the information to criminally investigate or prosecute any alcohol or drug abuse patient.[facility] HospitalIn the event this information is protected by the Federal Confidentiality of Alcohol and Drug Abuse Patient Records regulations: The Federal rules restrict any use of the information to criminally investigate or prosecute any alcohol or drug abuse patient.[facility] HospitalIn the event this information is protected by the Federal Confidentiality of Alcohol and Drug Abuse Patient Records regulations: The Federal rules restrict any use of the information to criminally investigate or prosecute any alcohol or drug abuse patient.[facility] HospitalIn the event this information is protected by the Federal Confidentiality of Alcohol and Drug Abuse Patient Records regulations: The Federal rules restrict any use of the information to criminally investigate or prosecute any alcohol or drug abuse patient.[facility] HospitalIn the event this information is protected by the Federal Confidentiality of Alcohol and Drug Abuse Patient Records regulations: The Federal rules restrict any use of the information to criminally investigate or prosecute any alcohol or drug abuse patient.[facility] HospitalIn the event this information is protected by the Federal Confidentiality of Alcohol and Drug Abuse Patient Records regulations: The Federal rules restrict any use of the information to criminally investigate or prosecute any alcohol or drug abuse patient.[facility] HospitalIn the event this information is protected by the Federal Confidentiality of Alcohol and Drug Abuse Patient Records regulations: The Federal rules restrict any use of the information to criminally investigate or prosecute any alcohol or drug abuse patient.[facility] HospitalIn the event this information is protected by the Federal Confidentiality of Alcohol and Drug Abuse Patient Records regulations: The Federal rules restrict any use of the information to criminally investigate or prosecute any alcohol or drug abuse patient.[facility] HospitalIn the event this information is protected by the Federal Confidentiality of Alcohol and Drug Abuse Patient Records regulations: The Federal rules restrict any use of the information to criminally investigate or prosecute any alcohol or drug abuse patient.[facility] HospitalIn the event this information is protected by the Federal Confidentiality of Alcohol and Drug Abuse Patient Records regulations: The Federal rules restrict any use of the information to criminally investigate or prosecute any alcohol or drug abuse patient.[facility] HospitalIn the event this information is protected by the Federal Confidentiality of Alcohol and Drug Abuse Patient Records regulations: The Federal rules restrict any use of the information to criminally investigate or prosecute any alcohol or drug abuse patient.[facility] HospitalIn the event this information is protected by the Federal Confidentiality of Alcohol and Drug Abuse Patient Records regulations: The Federal rules restrict any use of the information to criminally investigate or prosecute any alcohol or drug abuse patient.[facility] HospitalIn the event this information is protected by the Federal Confidentiality of Alcohol and Drug Abuse Patient Records regulations: The Federal rules restrict any use of the information to criminally investigate or prosecute any alcohol or drug abuse patient.[facility] HospitalIn the event this information is protected by the Federal Confidentiality of Alcohol and Drug Abuse Patient Records regulations: The Federal rules restrict any use of the information to criminally investigate or prosecute any alcohol or drug abuse patient.[facility] HospitalIn the event this information is protected by the Federal Confidentiality of Alcohol and Drug Abuse Patient Records regulations: The Federal rules restrict any use of the information to criminally investigate or prosecute any alcohol or drug abuse patient.[facility] HospitalIn the event this information is protected by the Federal Confidentiality of Alcohol and Drug Abuse Patient Records regulations: The Federal rules restrict any use of the information to criminally investigate or prosecute any alcohol or drug abuse patient.[facility] Reason for Visit (unrecogniz ed section and content) Reason Onset Date Comments Refill Request 01/10/2022 Reason Comments Orders Reason Comments Results Reason Comments Refill Request Reason Comments Medicare Wellness Exam Reason Onset Date Comments Opened In Error 11/17/2022 Reason Onset Date Comments Refill Request 09/24/2023 Reason Comments Recheck Reason Comments Ear Problem Right x 2 days pain Reason Comments Acute Visit Swollen lymph node t o right side of neck with right ear discomfort x3 days Reason Comments Radiology US Specialty Diagnoses / Procedures Referred By Contac t Referred To Contact [facility] Diagnoses Neck swelling Procedures US HEAD/NECK SOFT TISSUE OTHER US SOFT TISSUE HEAD & NECK REAL TIME IMGE CARA PodlogarKendra APRN.BD SPECIAL EDUCATION TEACHER [address] [place] [address] Phone: tel: fax: [place] [address] Referral ID Status Reason Start Date Expiration Date V isits Requested Visits Authorized [id number] Closed Auto-Generate d Referral 09/18/2024 10/18/2025 1 1 Reason Comments Patient Update Orders Ultrasound Reason Comments Patient Update Patient Request Reason Onset Date Comments Results 10/17/[address] Specialty Diagnoses / Procedures Referred By Contac t Referred To Contact CT IMAGING Diagnoses Localized enlarged lymph nodes Neck swelling Procedures CT NECK SOFT TISSUE WO IVCON CT SOFT TISSUE NECK W/O CONTRAST MATERIAL Juno iHgginbotham MD [address] [place] [address] Phone: tel: fax: [place] [address] Referral ID Status Reason Start Date Expiration Date V isits Requested Visits Authorized [id number] Closed Auto-Generate d Referral 10/12/2024 11/11/2025 1 1 Reason Comments Sleep Problem Reason Comments BP Check Reason Comments Lab Orders Reason Comments Anxiety memory concern Reason Onset Date Comments Refill Request 12/25/2024 Reason Comments Medication Request Reason Comments Medicare Wellness Exam Reason Comments Med Change Request Reason Onset Date Comments Refill Request 02/03/2025 Reason Onset Date Comments Refill Request 02/19/2025 Reason Onset Date Comments Population Health Navigation Outreach 02/28/2025 Slick/Workbench/ACO Reason Comments Derm Problem Cyst L upper thigh x 3 days Reason Comments Rash Possible cellulitis on ROSAURA legs x 3 days Care Teams (unrecognized sec tion and content) Local Operator Relationship Specialty Start Date End Date Juno Higginbotham MD [address] [place] [address] PCP - General Family Practice 10/30/21 Local Operator Relationship Specialty Start Date End Date Juno Higginbotham MD [facility] [place] [address] PCP - General Family Practice 10/30/21 Local Operator Relationship Specialty Start Date End Date Juno Higginbotham MD [facility] [place] [address] PCP - General Family Medicine 10/30/21 Local Operator Relationship Specialty Start Date End Date Juno Higginbotham MD [address] [place] [address] PCP - General Family Medicine 10/30/21 Local Operator Relationship Specialty Start Date End Date Juno Higginbotham MD [address] [place] [address] PCP - General Family Medicine 10/30/21 Local Operator Relationship Specialty Start Date End Date Juno Higginbotham MD [facility] [place] [address] PCP - General Family Medicine 10/30/21 Local Operator Relationship Specialty Start Date End Date Juno Higginbotham MD [facility] [place] [address] PCP - General Family Medicine 10/30/21 Local Operator Relationship Specialty Start Date End Date Juno Higginbotham MD [address] [facility] [address] PCP - General Family Medicine 10/30/21 Local Operator Relationship Specialty Start Date End Date Juno Higginbotham MD [address] [place] [address] PCP - General Family Medicine 10/30/21 Local Operator Relationship Specialty Start Date End Date Juno Higginbotham MD [address] [place] [address] PCP - General Family Medicine 10/30/21 Local Operator Relationship Specialty Start Date End Date Juno Higginbotham MD [address] [place] [address] PCP - General Family Medicine 10/30/21 Local Operator Relationship Specialty Start Date End Date Juno Higginbotham MD [address] [place] [address] PCP - General Family Medicine 10/30/21 Local Operator Relationship Specialty Start Date End Date Juno Higginbotham MD [address] [facility] [address] PCP - General Family Medicine 10/30/21 Local Operator Relationship Specialty Start Date End Date Juno Higginbotham MD [address] [place] [address] PCP - General Family Medicine 10/30/21 Local Operator Relationship Specialty Start Date End Date Juno Higginbotham MD [address] [place] [address] PCP - General Family Medicine 10/30/21 Local Operator Relationship Specialty Start Date End Date Juno Higginbotham MD [address] [place] [address] PCP - General Family Medicine 10/30/21 Podlogar, EMEKA GardnerN.BD SPECIAL EDUCATION TEACHER [address] [place] [address] Systems Applications Programming Lead Family Medicine 07/15/24 Local Operator Relationship Specialty Start Date End Date Juno Higginbotham MD [address] [place] [address] PCP - General Family Medicine 10/30/21 Podlogar, ROSA Gardner.BD SPECIAL EDUCATION TEACHER [address] [place] [address] Systems Applications Programming Lead Family [facility] 07/15/24 Local Operator Relationship Specialty Start Date End Date Juno Higginbotham MD [address] [place] [address] PCP - General Family Medicine 10/30/21 Podlogar, Kendra, EXECUTIVE CYBER LEADER.BD SPECIAL EDUCATION TEACHER [address] [place] [address] Systems [employer] Programming Lead Family [facility] 07/15/24 Local Operator Relationship Specialty Start Date End Date Juno Higginbotham MD [address] [place] [address] PCP - General Family Medicine 10/30/21 Podlogar, Kendra, EXECUTIVE CYBER LEADER.BD SPECIAL EDUCATION TEACHER [address] [place] [address] Systems Applications Programming Lead Family [facility] 07/15/24 Local Operator Relationship Specialty Start Date End Date Juno Higginbotham MD [address] [place] [address] PCP - General Family Medicine 10/30/21 Podlogar, EMEKA GardnerN.BD SPECIAL EDUCATION TEACHER [address] [place] [address] Systems Applications Programming [facility] [place] 07/15/24 Local Operator Relationship Specialty Start Date End Date Juno Higginbotham MD [address] [place] [address] PCP - General Family Medicine 10/30/21 Podlogar, Kendra, EXECUTIVE CYBER LEADER.BD SPECIAL EDUCATION TEACHER [address] [place] [address] Systems Applications Programming [facility] [place] [place] 07/15/24 Local Operator Relationship Specialty Start Date End Date Juno Higginbotham MD [address] [place] [address] PCP - General Family Medicine 10/30/21 Podlogar, Kendra, EXECUTIVE CYBER LEADER.BD SPECIAL EDUCATION TEACHER [address] [place] [address] Systems Applications Programming [facility] [place] [place] 07/15/24 Local Operator Relationship Specialty Start Date End Date Juno Higginbotham MD [address] [place] [address] PCP - General Family Medicine 10/30/21 Podlogar, Kendra, EXECUTIVE CYBER LEADER.BD SPECIAL EDUCATION TEACHER [address] [place] [address] Systems Applications Programming [facility] [place] [place] 07/15/24 Local Operator Relationship Specialty Start Date End Date Juno Higginbotham MD [address] [place] [address] PCP - General Family Medicine 10/30/21 Podlogar, ROSA Gardner.BD SPECIAL EDUCATION TEACHER [address] [place] [address] Systems Applications Programming Lead Family [facility] 07/15/24 Nai Mendoza APRN.BD SPECIAL EDUCATION TEACHER [address] [place] [address] [facility] 10/30/24 Local Operator Relationship Specialty Start Date End Date Juno Higginbotham MD [address] [place] [address] PCP - General Family Medicine 10/30/21 Podlogar, ROSA Gardner.BD SPECIAL EDUCATION TEACHER [address] [place] [address] [facility] Medicine 07/15/24 Nai Mendoza EXECUTIVE CYBER LEADER.BD SPECIAL EDUCATION TEACHER [address] [place] [address] [facility] 10/30/24 Local Operator Relationship Specialty Start Date End Date Juno Higginbotham MD [address] [place] [address] PCP - General Family Medicine 10/30/21 Podlogar, Kendra EXECUTIVE CYBER LEADER.BD SPECIAL EDUCATION TEACHER [address] [place] [address] Systems Applications Programming Lead Family [facility] 07/15/24 Nai Mendoza EXECUTIVE CYBER LEADER.BD SPECIAL EDUCATION TEACHER [address] [place] [address] [facility] Medicine 10/30/24 Local Operator Relationship Specialty Start Date End Date Juno Higginbotham MD [address] [facility] [address] PCP - General Family Medicine 10/30/21 Podlogar, Kendra EXECUTIVE CYBER LEADER.BD SPECIAL EDUCATION TEACHER [address] [facility] [address] [facility] Medicine 07/15/24 Nai Mendoza EXECUTIVE CYBER LEADER.BD SPECIAL EDUCATION TEACHER [address] [place] [address] [facility] 10/30/24 Local Operator Relationship Specialty Start Date End Date Juno Higginbotham MD [address] [facility] [address] PCP - General Family Medicine 10/30/21 PodlogarKendra EXECUTIVE CYBER LEADER.BD SPECIAL EDUCATION TEACHER [address] [facility] [address] Systems Applications Programming [facility] 07/15/24 Nai Mendoza EXECUTIVE CYBER LEADER.BD SPECIAL EDUCATION TEACHER [address] [place] [address] [facility] Medicine 10/30/24 Local Operator Relationship Specialty Start Date End Date Juno Higginbotham MD [address] [facility] [address] PCP - General Family Medicine 10/30/21 PodlogarKendra APRN.BD SPECIAL EDUCATION TEACHER [address] [facility] [address] Systems Applications Programming Lead Family [facility] 07/15/24 Nai Mendoza APRN.BD SPECIAL EDUCATION TEACHER [address] [place] [address] Systems Applications Programming Lead Family [facility] 10/30/24 Local Operator Relationship Specialty Start Date End Date Juno Higginbotham MD [address] [facility] [address] PCP - General Family Medicine 10/30/21 PodlogarKendra APRN.BD SPECIAL EDUCATION TEACHER [address] [facility] [address] Systems Applications Programming Lead Family [facility] 07/15/24 Local Operator Relationship Specialty Start Date End Date Juno Higginbotham MD [address] [facility] [address] PCP - General Family Medicine 10/30/21 PodlogarKendra APRN.BD SPECIAL EDUCATION TEACHER [address] [facility] [address] Systems Applications Programming Lead Family [facility] 07/15/24 Local Operator Relationship Specialty Start Date End Date Juno Higginbotham MD [address] [facility] [place] [address] PCP - General Family Medicine 10/30/21 PodlogarKendra APRN.BD SPECIAL EDUCATION TEACHER [address] [facility] [address] Systems Applications Programming Lead Family [facility] 07/15/24 Local Operator Relationship Specialty Start Date End Date Juno Higginbotham MD [address] [facility] [address] PCP - General Family Medicine 10/30/21 PodlogarKendra APRN.BD SPECIAL EDUCATION TEACHER [address] [facility] [address] Systems Applications Programming Lead Family Medicine 07/15/24 Nai Mendoza APRN.BD SPECIAL EDUCATION TEACHER [address] [place] [address] Systems Applications Programming Lead Family Medicine 01/18/25 Local Operator Relationship Specialty Start Date End Date Juno Higginbotham MD [address] [facility] [address] PCP - General Family Medicine 10/30/21 PodlogarKendra APRN.BD SPECIAL EDUCATION TEACHER [address] [facility] [address] Systems Applications Programming Lead Family Medicine 07/15/24 Nai Mendoza APRN.BD SPECIAL EDUCATION TEACHER [address] [place] [address] Systems Applications Programming Lead Family Medicine 01/18/25 Local Operator Relationship Specialty Start Date End Date Juno Higginbotham MD [address] [facility] [place] [address] PCP - General Family Medicine 10/30/21 PodlogarKendra APRN.BD SPECIAL EDUCATION TEACHER [address] [facility] [place] [address] Systems Applications Programming Lead Family Medicine 07/15/24 Nai Mendoza APRN.BD SPECIAL EDUCATION TEACHER [address] [place] [address] [facility] 01[facility]25 Local Operator Relationship Specialty Start Date End Date Juno Higginbotham MD [address] [place] [address] PCP - General Family Medicine 10/30/21 [employer]logarKendra APRN.BD SPECIAL EDUCATION TEACHER [address] [place] [address] [facility] 07/15/24 Nai Mendoza APRN.BD SPECIAL EDUCATION TEACHER [address] [place] [address] [facility] 01/18/25 Local Operator Relationship Specialty Start Date End Date Juno Higginbotham MD [address] [place] [address] PCP - General Family Medicine 10/30/21 [employer]logarKendra APRN.BD SPECIAL EDUCATION TEACHER [address] [place] [address] [facility] 07/15/24 Nai Mendoza APRN.BD SPECIAL EDUCATION TEACHER [address] [place], [place] [id number] [facility] 01/18/25 INFORMATION SOURCE (unrecogn ized section and content) DATE CREATED AUTHOR 12/14/2024 [facility] DATE CREATED AUTHOR AUTHOR'S PABLO PEACE 03/29/2025 [facility] FOR RECORDS PERTAINING TO PATIENTS WHO ARE OR HAVE BEEN ENROLLED IN A CHEMICAL DEPENDENCY/SUBSTANCEABUSE PROGRAM, SOME INFORMATION MAY BE OMITTED. This clinical summary was aggregated from multiple sources. Caution should be exercised in using it in the provision of clinical care. This summary normalizes information from multiple sources, and as a consequence, information in this document may materially change the coding, format and clinical context of patient data. In addition, data may be omitted in some cases. CLINICAL DECISIONS SHOULD BE BASED ON THE PRIMARY CLINICAL RECORDS. [facility]. provides no warranty or guarantee of the accuracy or completeness of information in this document.
[2025-03-30 21:52] VITALS: BP 151/67; PULSE 66; RESP 16; TEMP 36.9; O2SAT 96
== END 2025-03-30 22:03 | disposition home or self-care (01) ==
PROVIDERS: Emergency Provider Emergency Medicine; PCP Family Medicine; Visit Provider Emergency Medicine
DX: L02.416 Cutaneous abscess of left lower limb (principal); E78.00 Pure hypercholesterolemia, unspecified; M79.89 Other specified soft tissue disorders; M79.652 Pain in left thigh; I10 Essential (primary) hypertension; Z48.00 Encounter for change or removal of nonsurgical wound dressing
CPT/HCPCS: 10060; 99282